=== PATIENT | female | born 1985 | race Caucasian/White ===

== ENCOUNTER 2021-07-09 20:07 | Emergency (ER) | payer MEDICAID, SELFPAY ==
[2021-07-09 20:10] VITALS: BP 107/60; PULSE 70; RESP 16; TEMP 37; O2SAT 98
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
--- NOTE | 2021-07-09 20:22 | NUR.NOTE ---
needs rx refills - on list for assist with pcp Nursing Note:
[2021-07-09] MEDS: Amoxicillin 500 MG CAP PO (20:39)
--- NOTE | 2021-07-10 10:47 | NUR.NOTE ---
Nursing Note: Called in to [facility] : diflucan 150mg, PO, repeat in 72hrs if needed, dispense 2; per Dr. Star King. Theresa Marinelli
== END 2021-07-09 20:42 | disposition home or self-care (01) ==
PROVIDERS: Emergency Provider Emergency Medicine; PCP Family Medicine
DX: K04.7 Periapical abscess without sinus (principal)
CPT/HCPCS: 99283

== ENCOUNTER 2021-07-19 10:09 | Emergency (ER) | payer MEDICAID, SELFPAY ==
[2021-07-19 10:15] VITALS: BP 137/78; PULSE 70; TEMP 36.7; O2SAT 99
--- NOTE | 2021-07-19 10:43 | ED.GENADUL_ITS ---
Discharge Plan Disposition Patient Disposition: HOME Condition: Stable Discharge Details Clinical Impression: Dental infection Primary Care Provider: None,None ED Provider: Mony Osorio Home Meds and New Rx's Prescriptions: New clindamycin HCl 150 mg capsule 450 mg PO TID 7 Days Qty: 63 RF: 0 fluconazole [Diflucan] 150 mg tablet 150 mg PO Q3D PRNQty: 2 RF: 0 Continued Advil Dual Action 125-250 mg Tablet 1 tab PO Q8H PRNRF: 0 Discharge Instructions Instructions: Dental Abscess (ED) Additional Instructions: Concern for continued dental infection. I do not see any drainable abscess at this time. Please encourage hydration. Tylenol and ibuprofen as needed for discomfort. Please take the antibiotics as prescribed. Even if symptoms improve, please take the entire course. Diflucan has been prescribed in the event that you develop a yeast infection. Please probiotic while on the antibiotics. You will need definitive care with a dentist, attached is a list of local dentist, please call tomorrow to schedule follow-up appointment. If you develop swelling, fever/chills or other new/worsening symptoms please seek care urgently once again. Referral for local primary care has also been sent. Stand Alone Forms: Work Release Discharge Data Discharge Date/Time-TO BE ENTERED AT DEPARTURE: 07/19/21 11:21 Medical Decision Making Patient is a pleasant 35-year-old female presenting today with chief complaint of dental pain. Patient was seen here on 07/09/2021 for the same. Was treated with amoxicillin for her dental infection. She reports that initially, she had improvement of her symptoms with this. However, did not have full resolution of her symptoms and patient pain greatly increased again after she completed the antibiotic. Denies any fevers or chills. Is having pain at the left upper and right upper dentition where she has known fractured teeth. Patient is newly back to the area, does not have a local dentist. Has not yet found dental home. No radiation of pain. No difficulty swallowing. No shortness of breath or difficulty breathing. On exam, patient appears nontoxic. She is multiple fractured teeth, proceed with a #1 #16 tooth right area of discomfort is. Patient describes a purulent discharge from the #1 tooth. Not appreciate any area of fluctuance or significant swelling in either area of discomfort. Pain elicited with palpation along the buccal side of either tooth. She does not appear systemically ill. No swelling of the tongue. Posterior pharynx is normal. As the amoxicillin did not subsequently clear the infection, will transition to clindamycin. Patient is requesting a prescription for Diflucan as well she often gets yeast infections with this. Patient reports she is currently menstruating. Will give work note at patient's request. Return precautions were discussed. List of local dentists were given to the patient, she is aware that she will need to follow-up with dentist for definitive care. All the questions or concerns were addressed and she is agreement with plan. HPI General Mode of arrival: ambulatory . Date/Time Provider Initiated Documentation: 07/19/21 10:43 . Limitations to Documentation: no limitations . Information obtained by: patient, RN notes reviewed and old records reviewed . History of Present Illness 35 year old F presents to the emergency department with the chief complaint of dental pain, described as moderate, with intensity rated at 7. Quality is described as aching, and is localized to the mouth. Patient reports no radiation. Patient started experiencing this week(s) and it has been constant. Medication improves symptom(s), (improved with amoxicillin initially) No exacerbating factors reported . Patient notes no other symptoms.. Patient did receive the following treatments prior to arrival, none Related Data Home Medications Medication Instructions Recorded Confirmed Advil Dual Action 1 tab PO Q8H PRN 07/19/21 07/19/21 clindamycin HCl 450 mg PO TID 7 Days #63 cap 07/19/21 fluconazole [Diflucan] 150 mg PO Q3D PRN #2 tab 07/19/21 Previous Rx's Medication Instructions Recorded clindamycin HCl 450 mg PO TID 7 Days #63 cap 07/19/21 fluconazole [Diflucan] 150 mg PO Q3D PRN #2 tab 07/19/21 Allergies Allergy/AdvReac Type Severity Reaction Status Date / Time buspirone HCl [From BuSpar] AdvReac Intermediate blackouts Unverified 07/19/21 10:21 hydroxyzine [From Vistaril] AdvReac Intermediate blackouts Unverified 07/19/21 10:21 sulfamethoxazole AdvReac Intermediate uncontrollable Unverified 07/19/21 10:21 [From Bactrim] vomiting trimethoprim [From Bactrim] AdvReac Intermediate uncontrollable Unverified 07/19/21 10:21 vomiting cyclobenzaprine HCl AdvReac Mild loss of Unverified 07/19/21 10:21 [From Flexeril] inhibition gabapentin [From Neurontin] AdvReac Mild muscle Unverified 07/19/21 10:21 spasms paroxetine HCl [From Paxil] AdvReac Mild Itching Unverified 07/19/21 10:21 General Stated Complaint: DentalOral DEJUAN: 4 Review of Systems Constitutional Constitutional: Reports as per HPI, Denies chills, Denies fever(s) and Denies headache(s) ENT Ears, Nose, Mouth, and Throat: Reports as per HPI, Reports dental pain, Denies dysphagia, Denies ear discharge, Denies otalgia, Denies headache(s), Denies hoarseness, Denies lip swelling, Denies nasal congestion, Denies odynophagia and Denies sore throat Respiratory Respiratory: Reports as per HPI and Denies cough Gastrointestinal Gastrointestinal: Denies dysphagia and Denies odynophagia Integumentary/Breasts Skin/Breast: Reports as per HPI, Denies erythema and Denies skin pain Neurologic Neurologic: Reports as per HPI and Denies headache(s) Allergic/Immunologic Allergic/Immunologic: Denies lip swelling PFSH Medical History ADHD Asthma PCOS (polycystic ovarian syndrome) Surgical History S/P appendectomy S/P cholecystectomy Social History Smoking/Tobacco Use Status: Current every day Tobacco Type: cigarettes and e- cigarettes Smoking risk assessment performed?: Yes Alcohol Intake: current Alcohol Intake frequency: holidays/special occasions only Drug use: Daily Substance use type: marijuana Do you feel safe at home: Yes Do you feel safe in your relationship?: Yes Exam Const General: cooperative, healthy appearing, comfortable, no acute distress, well developed and well groomed Nutritional Appearance: average body habitus and well nourished Orientation: alert and awake [facility] Head: normal to inspection, normocephalic and atraumatic Ears: hearing grossly normal bilaterally, external ears normal and TM's normal bilaterally General nose exam: external nose normal and nares normal Face and sinus: normal facial exam, sinuses nontender and face symmetric Mouth: oral mucosae normal, no trismus and restricted motion Teeth and gingiva: poor dentition (fractured tooth #1) Throat: posterior oropharynx normal, tonsils normal and uvula midline Eyes General: appearance normal, both eyes and all related structures Neck Neck: normal visual inspection, full ROM, no lymphadenopathy, supple and no anterior neck swelling Resp Effort & Inspection: normal respiratory effort, able to speak in complete sentences and no respiratory distress Skin General skin exam: no rashes or lesions noted Trauma: no lacerations or abrasions Neuro General: patient alert and patient awake Cognition: normal cognition Speech: speech normal Gait: normal gait Psych Appearance: grossly normal and well kempt Mental Status: mental status grossly normal Speech and Movement: speech and movement normal Course Vital Signs Vital signs: Vital Signs Temperature 36.7 C 07/19/21 10:15 Pulse 70 07/19/21 10:15 Blood Pressure 137/78 07/19/21 10:15 Pulse Oximetry 99 07/19/21 10:15 Temperature 36.7 C 07/19/21 10:15 Temperature Source Temporal Artery Scan 07/19/21 10:15 Pulse 70 07/19/21 10:15 Respiratory Effort Non-Labored 07/19/21 10:18 Blood Pressure 137/78 07/19/21 10:15 Blood Pressure Position Sitting 07/19/21 10:15 Pulse Oximetry 99 07/19/21 10:15 Pain Level 7 07/19/21 10:20
--- NOTE | 2021-07-19 18:59 | NUR.NOTE ---
referral to [facility] for pcp
== END 2021-07-19 11:21 | disposition home or self-care (01) ==
PROVIDERS: Emergency Provider Physician Assistant
DX: K04.7 Periapical abscess without sinus (principal); F17.210 Nicotine dependence, cigarettes, uncomplicated
CPT/HCPCS: 99283

== ENCOUNTER 2022-01-10 17:03 | Emergency (ER) | payer MEDICAID, SELFPAY ==
[2022-01-10 17:08] VITALS: BP 127/79; PULSE 84; RESP 18; TEMP 36.5; O2SAT 97
[2022-01-10 17:16] VITALS: RESP 18
[2022-01-10 18:16] LABS: Abs Immature Grans 0.04 10^3/uL (0.0-0.06); Absolute Basophil Count 0.03 10^3/uL (0.0-0.2); Absolute Lymphocyte Count 2.47 10^3/uL (1.2-3.4); Absolute Monocyte Count 0.53 10^3/uL (0.1-0.8); Absolute Neutrophil Count 6.12 10^3/uL (1.2-6.7); Basophils % 0.3; Eosinophils % 1.1; HGB 14.3 g/dL (11.2-15.7); Immature Grans % 0.4; Lymphocytes % 26.6; MCH 29.8 pg (27.0-33.0); MCHC 32.5 % (32.0-36.0); MCV 91.7 fL (80-95); MPV 9.1 fL (8.0-11.0); Monocytes % 5.7; Neutrophils % 65.9; Platelet Count 281 10^3/uL (130-400); RDW 12.6 % (11.7-14.6); RDW-SD 42.5 fL; WBC 9.29 10^3/uL (4.4-10.8)
[2022-01-10 18:23] LABS: Magnesium 2.2 mg/dL (1.8-2.4)
[2022-01-10 18:36] LABS: ALT 27 U/L (14-59); AST 14 U/L (15-37); Alkaline Phosphatase 76 U/L (46-116); Anion Gap 7.2 mmol/L (3-11); BUN 8 mg/dL (7-18); Bilirubin, Total 0.4 mg/dL (0.2-1.0); CO2 27.8 mmol/L (21.0-32.0); CREATININE 0.9 mg/dL (0.55-1.02); Calcium 8.9 mg/dL (8.5-10.1); Chloride 104 mmol/L (98-107); Glucose 87 mg/dL (74-106); Potassium 3.9 mmol/L (3.5-5.1); Sodium 139 mmol/L (136-145); TSH (W/Ref FT4) 0.58 uIU/mL (0.36-3.74); Total Protein 8.1 g/dL (6.4-8.2)
--- NOTE | 2022-01-10 20:35 | ED.GENADUL_ITS ---
Discharge Plan Disposition Patient Disposition: HOME Condition: Good Discharge Details Clinical Impression: Anxiety, Edema, peripheral Primary Care Provider: None,None ED Provider: Beronica Jennings Home Meds and New Rx's Prescriptions: Continued Advil Dual Action 125-250 mg Tablet 1 tab PO Q8H PRN0RF Midol 500-25 mg Tablet 1 tab PO Q4H PRN0RF Discharge Instructions Instructions: Anxiety (ED) Additional Instructions: Please follow-up with my counselor as instructed Please return should you have new or worsening complaints I am placing you on our care management list for pcp Stand Alone Forms: Work Release Referrals: [facility] [Provider Group] Medical Decision Making Patient initially was pleasant in [facility] and is rechecking some blood work to check electrolytes Laboratory evaluation did not show acute abnormality She also was supplied with a mental health consultation to establish care and care management follow-up to establish PCP Mental health felt comfortable with patient being evaluated in the outpatient setting and did not express any concern regarding suicidal or homicidal ideation upon Patient was made aware regarding plan and became very agitated, she would not make eye contact and and when not engaged I offered patient a prescription for Lasix which she declined She was given 1 dose of Ativan for report of anxiety in the emergency department and I do not feel comfortable giving her any additional Ativan at home Patient was discharged home and called the emergency department approximately half an hour later and asked to speak with me as she did not receive a prescription for Ativan I discussed with the patient that I did not feel comfortable supplying her with Ativan but she was appropriately supplied with PCP outpatient follow-up and given mental health consultation availability in the outpatient setting Patient subsequently screamed you fucking c*n*, I'll blow your brains out. At this time our conversation was discontinued Medical Records Medical records reviewed: Yes I reviewed the patient's medical records. Lab Data Lab results reviewed: Yes I reviewed the patient's lab results. ECG Data Prior ECG tracings: available for review HPI General Date/Time Provider Initiated Documentation: 01/10/22 17:35 . HPI Narrative: This 36-year-old female presents with swelling in her feet and panic attacks. Patient states that she has a history of PTSD and started a new job without training and is feeling very stressed. She states she is having several panic attacks which she describes as racing thoughts daily. She states that she is not on medication that she does not have a doctor. She denies any suicidal or homicidal ideation. Patient also states that she has had some swelling in her legs. She states this is been going on for the past 3 years. She denies any shortness of breath. She denies fever or chills. She denies rashes or lesions. She states that is persistent throughout the day and does not change in the morning or in the evening. Related Data Home Medications Medication Instructions Recorded Confirmed ibuprofen 125 mg-acetaminophen 250 1 tab PO Q8H PRN 07/19/21 01/10/22 mg tablet (Advil Dual Action) acetaminophen-pamabrom 500 mg-25 1 tab PO Q4H PRN 01/10/22 01/10/22 mg tablet (Midol) Allergies Allergy/AdvReac Type Severity Reaction Status Date / Time buspirone HCl [From BuSpar] AdvReac Intermediate blackouts Unverified 01/10/22 17:14 hydroxyzine [From Vistaril] AdvReac Intermediate blackouts Unverified 01/10/22 17:14 sulfamethoxazole AdvReac Intermediate uncontrollable Unverified 01/10/22 17:14 [From Bactrim] vomiting trimethoprim [From Bactrim] AdvReac Intermediate uncontrollable Unverified 01/10/22 17:14 vomiting cyclobenzaprine HCl AdvReac Mild loss of Unverified 01/10/22 17:14 [From Flexeril] inhibition gabapentin [From Neurontin] AdvReac Mild muscle Unverified 01/10/22 17:14 spasms paroxetine HCl [From Paxil] AdvReac Mild Itching Unverified 01/10/22 17:14 General Stated Complaint: GenMedical DEJUAN: 3 Review of Systems All systems reviewed & are unremarkable except as noted in HPI and below PFSH All Active Problems (Updated 01/10/22 @ 20:52 by MCKENNA Bean) Anxiety (Chronic) Edema, peripheral (Acute) ADHD (Chronic) Asthma (Chronic) Dental infection (Acute) PCOS (polycystic ovarian syndrome) (Chronic) Medical History ADHD Asthma PCOS (polycystic ovarian syndrome) Surgical History S/P appendectomy S/P cholecystectomy Social History Smoking/Tobacco Use Status: Current every day Tobacco Type: cigarettes and e- cigarettes Smoking risk assessment performed?: Yes Alcohol Intake: current Alcohol Intake frequency: holidays/special occasions only Drug use: Daily Substance use type: marijuana Do you feel safe at home: Yes Do you feel safe in your relationship?: Yes Exam Const General: cooperative, comfortable and no acute distress Eyes Pupils: PERRL Resp Effort & Inspection: normal respiratory effort Auscultation: clear to auscultation bilaterally Cardio Rate: regular rate Rhythm: regular rhythm GI Inspection: normal to inspection Auscultation: normal bowel sounds Skin General skin exam: no rashes or lesions noted Neuro General: patient alert and patient oriented x3 Extrem Other: 1+edema to bilateral LE distal pulses intact Psych Appearance: well kempt Speech and Movement: speech and movement normal Affect: normal affect Thought Content: normal Other: no SI or HI Course Vital Signs Vital signs: Vital Signs Temperature 36.5 C 01/10/22 17:08 Pulse 84 01/10/22 17:08 Respiratory Rate 18 01/10/22 17:08 Blood Pressure 127/79 01/10/22 17:08 Pulse Oximetry 97 01/10/22 17:08 Temperature 36.5 C 01/10/22 17:08 Temperature Source Oral 01/10/22 17:08 Pulse 84 01/10/22 17:08 Respiratory Rate 18 01/10/22 17:16 Respiratory Effort Non-Labored 01/10/22 17:16 Respiratory Depth Normal 01/10/22 17:16 Respiratory Pattern Normal 01/10/22 17:16 Blood Pressure 127/79 01/10/22 17:08 Blood Pressure Position Supine 01/10/22 17:08 Pulse Oximetry 97 01/10/22 17:08 Oxygen Delivery Method Room Air 01/10/22 17:08 Oxygen Flow Rate 0 01/10/22 17:08 Pain Level 8 01/10/22 17:08 Lab/Test Results Lab/Test Results: Laboratory Tests Range/Units 01/10/22 01/10/22 01/10/22 18:05 18:05 18:05 WBC (4.4-10.8) 10^3/uL 9.29 RBC (3.93-5.22) 10^6/uL 4.80 Hgb (11.2-15.7) g/dL 14.3 Hct (36.0-46.0) % 44.0 MCV (80-95) fL 91.7 MCH (27.0-33.0) pg 29.8 MCHC (32.0-36.0) % 32.5 RDW (11.7-14.6) % 12.6 Plt Count (130-400) 10^3/uL 281 MPV (8.0-11.0) fL 9.1 Immature Gran % 0.4 Neutrophils % 65.9 Lymphocytes % 26.6 Monocytes % 5.7 Eosinophils % 1.1 Basophils % 0.3 Nucleated RBC % (0.0-0.3) % 0.0 Absolute Neutrophils (1.2-6.7) 10^3/uL 6.12 Absolute Lymphocytes (1.2-3.4) 10^3/uL 2.47 Absolute Monocytes (0.1-0.8) 10^3/uL 0.53 Absolute Eosinophils (0.0-0.7) 10^3/uL 0.10 Absolute Basophils (0.0-0.2) 10^3/uL 0.03 Sodium (136-145) mmol/L 139 Potassium (3.5-5.1) mmol/L 3.9 Chloride (98-107) mmol/L 104 Carbon Dioxide (21.0-32.0) mmol/L 27.8 Anion Gap (3-11) mmol/L 7.2 BUN (7-18) mg/dL 8 Creatinine (0.55-1.02) mg/dL 0.9 Estimated GFR/1.73 m2 (mL/min/1.73m2) >= 60.00 Glucose (74-106) mg/dL 87 Calcium (8.5-10.1) mg/dL 8.9 Magnesium (1.8-2.4) mg/dL 2.2 Total Bilirubin (0.2-1.0) mg/dL 0.4 AST (15-37) U/L 14 L ALT (14-59) U/L 27 Alkaline Phosphatase (46-116) U/L 76 Total Protein (6.4-8.2) g/dL 8.1 Albumin (3.4-5.0) g/dL 4.0 TSH (0.36-3.74) uIU/mL 0.58 POC- Test(urine) Negative PAWSS Have you Ever Experienced Previous Episodes of Alcohol Withdrawal?: No Have you ever Experienced Withdrawal Seizures?: No Have you ever Experienced Delirium Tremens(DT)s?: No Have you ever undergone Alcohol Rehabilitation Treatment (i.e, inpt ot outpatient treatment programs)?: No Have you ever Experienced Blackouts?: No Have you ever Combined Alcohol with other Downers within the last 90 days?: No Have you ever Combined Alcohol with any other Substance of Abuse during the last 90 days?: No Positive Blood Alcohol level on Presentation? [PCS.BAL]: No Evidence of Increased Autonomic Activity (i.e. HR>120, tremor, sweating, agitation, nausea)?: No Result: 0
[2022-01-10] MEDS: LORazepam 1 MG TAB PO (20:49)
[2022-01-10 21:06] VITALS: PULSE 72; RESP 16; O2SAT 96
--- NOTE | 2022-01-10 23:15 | PDOC.MHCN_ITS ---
Date of service: 01/10/22 Time of Service: 20:20 Mental Health Crisis Note Presenting Issue How did you arrive at the ED and why did you come: Client arrived at [facility] ED via self stating that she was having a panic attack. Precipitating Factors Client denies current SI/HI, intent or plan. Disposition BEHAVIOR: Client is laying down in hospital bed dressed in hospital gown when this commercial real estate underwriter arrives via zoom. EYE CONTACT: Client gives fair eye contact. MOOD: Depressed/withdrawn AFFECT: flat APPETITE: fair SLEEP(trouble falling/staying asleep: fair Plan Client completed intake paperwork with this commercial real estate underwriter. Referral will be made for case management and therapy. Client also given [facility] 24/7 phone number as well as lifeline phone number to utilize for support. Signature Clinician's Name/Title: Crystal Lamar [facility] Emergency Clinician
--- NOTE | 2022-01-10 23:15 | PDOC.MHCN ---
Date of service: 01/10/22 Time of Service: 20:20 Mental Health Crisis Note Presenting Issue How did you arrive at the ED and why did you come: Client arrived at [facility] ED via self stating that she was having a panic attack. Precipitating Factors Client denies current SI/HI, intent or plan. Disposition BEHAVIOR: Client is laying down in hospital bed dressed in hospital gown when this residential mortgage underwriter arrives via zoom. EYE CONTACT: Client gives fair eye contact. MOOD: Depressed/withdrawn AFFECT: flat APPETITE: fair SLEEP(trouble falling/staying asleep: fair Plan Client completed intake paperwork with this residential mortgage underwriter. Referral will be made for case management and therapy. Client also given [facility] 24/7 phone number as well as lifeline phone number to utilize for support. Signature Clinician's Name/Title: Crystal Lamar [facility] Emergency Clinician
--- NOTE | 2022-01-11 10:31 | NUR.NOTE ---
First phone call patient called asking about the medications lasix and ativan on discharge. Stated she did not want the lasix but was expecting the ativan. Stated she was going to kill herself without it. Second call Mony ANDRES spoke with patient. Third phone call she called yelling, stating that she wanted to do a complaint, that she had a cord around her neck and then started making choking sounds. She then hung up. Theresa Marinelli Nursing Note:
== END 2022-01-10 21:18 | disposition home or self-care (01) ==
PROVIDERS: Emergency Provider Physician Assistant
DX: F41.9 Anxiety disorder, unspecified (principal); R60.0 Localized edema
CPT/HCPCS: 36415; 80053; 81025; 99283; 83735; 84443; 85025

== ENCOUNTER 2022-05-21 12:46 | Emergency (ER) | payer MEDICAID, SELFPAY ==
[2022-05-21 12:49] VITALS: BP 96/68; PULSE 88; RESP 16; TEMP 36.7; O2SAT 98
--- NOTE | 2022-05-21 13:45 | DI.RAD_ITS ---
Exam(s) XR ANKLE RT COMPLETE EXAM: XR ANKLE RT COMPLETE CLINICAL HISTORY: ankle pain, rolled ankle. TECHNIQUE: 2D digital imaging was performed. COMPARISON: No exams were available for comparison FINDINGS: 3 views Mild soft tissue swelling. No fractures nor widening of the mortise. Talar dome unremarkable. On t he lateral view there is slight widening of the subtalar joint, possibly significant. There is no os seous tarsal coalition No osseous lesions. IMPRESSION: DATA REPOSITORY: RADIATION DOSE DELIVERED:
--- NOTE | 2022-05-21 14:35 | ED.GENADUL_ITS ---
Discharge Plan Disposition Patient Disposition: HOME Condition: Stable Discharge Details Chief Complaint: Orthopedic Clinical Impression: Ankle sprain Primary Care Provider: Toshia Ledbetter ED Provider: Danish Austin Home Meds and New Rx's Prescriptions: No Action Advil Dual Action 125-250 mg Tablet 1 tab PO Q8H PRN Midol 500-25 mg Tablet 1 tab PO Q4H PRN clonidine HCl 0.1 mg tablet 0.1 tab PO DAILY Label Comments: TAKE 1 TABLET BY MOUTH NIGHTLY Discharge Instructions Instructions: Ankle Sprain (ED) Additional Instructions: Please ice and elevate ankle as needed. Please continue to use ibuprofen and/or acetaminophen for pain. Medical Decision Making 36-year-old female presents with right ankle pain over the last week after rolling at all times. Did not fall to the ground is able to ambulate is able to move and stand at work. Has mild lateral malleoli or tenderness in the right lower extremity. DP pulse intact sensation intact soft compartments no external signs of trauma. Neurovascular exam of limb intact. Likely ankle sprain versus muscle strain versus unlikely ankle fracture or dislocation, no evidence in history or physical to suggest DVT or infectious process. Patient was offered Toradol however she says that this medication does not help her she has been taking Tylenol at home. Patient is amenable to obtain x-ray. Likely will be given orthopedic referral for follow-up as needed. 15: 17 patient resting comfortably no acute distress. No evidence of fracture or dislocation. Patient offered Ronald wrap for suspected ankle sprain however she does not want an Ronald wrap. Will provide orthopedic follow-up to use as needed. Given home care instructions and return precautions HPI General Date/Time Provider Initiated Documentation: 05/21/22 13:13 . HPI Narrative: 36-year-old female presents with 1 week of right ankle pain, endorses twisting it multiple times. Has not fallen to the ground. Is able to walk and stand at work. Related Data Home Medications Medication Instructions Recorded Confirmed ibuprofen 125 mg-acetaminophen 250 1 tab PO Q8H PRN 07/19/21 05/21/22 mg tablet (Advil Dual Action) acetaminophen-pamabrom 500 mg-25 1 tab PO Q4H PRN 01/10/22 05/21/22 mg tablet (Midol) clonidine HCl 0.1 mg tablet 0.1 tab PO DAILY 05/21/22 05/21/22 Allergies Allergy/AdvReac Type Severity Reaction Status Date / Time haloperidol [From Haldol] Allergy Other (See Unverified 05/21/22 12:55 Comment) buspirone HCl [From BuSpar] AdvReac Intermediate blackouts Unverified 05/21/22 12:55 hydroxyzine [From Vistaril] AdvReac Intermediate blackouts Unverified 05/21/22 12:55 sulfamethoxazole AdvReac Intermediate uncontrollable Unverified 05/21/22 12:55 [From Bactrim] vomiting trimethoprim [From Bactrim] AdvReac Intermediate uncontrollable Unverified 05/21/22 12:55 vomiting cyclobenzaprine HCl AdvReac Mild loss of Unverified 05/21/22 12:55 [From Flexeril] inhibition gabapentin [From Neurontin] AdvReac Mild muscle Unverified 05/21/22 12:55 spasms paroxetine HCl [From Paxil] AdvReac Mild Itching Unverified 05/21/22 12:55 General Stated Complaint: Orthopedic DEJUAN: 4 Review of Systems Narrative: Review of Systems Constitutional: negative Eyes: negative ENT: negative Cardiovascular: negative Respiratory: negative Gastrointestinal: negative : negative Musculoskeletal: Ankle pain Skin: negative Neurologic: negative Psych: negative PFSH All Active Problems (Updated 05/21/22 @ 15:20 by Danish Austin MD) Ankle sprain (Acute) ADHD (Chronic) Asthma (Chronic) Dental infection (Acute) PCOS (polycystic ovarian syndrome) (Chronic) Medical History ADHD Asthma PCOS (polycystic ovarian syndrome) Surgical History S/P appendectomy S/P cholecystectomy Social History Smoking/Tobacco Use Status: Current every day Tobacco Type: cigarettes and e-cigarettes Smoking risk assessment performed?: Yes Alcohol Intake: current Alcohol Intake frequency: holidays/special occasions only Drug use: Daily Substance use type: marijuana Do you feel safe at home: Yes Do you feel safe in your relationship?: Yes Exam Narrative Exam Narrative: Physical Examination General: alert, awake, cooperative, resting comfortably, no acute distress HEENT: normocephalic, atraumatic; PERRL, EOM intact, conjunctiva normal; no nasal discharge; moist mucous membranes, oral and pharyngeal mucosa normal, tolerating secretions Neck: supple, trachea midline; full ROM Chest: normal to inspection Respiratory: normal respiratory effort, speaking in full sentences, clear to auscultation, no wheezing, rales or rhonchi Cardiac: regular rate, regular rhythm, S1S2 intact, no murmurs rubs or gallops GI: abdomen soft, non-tender, non-distended; no palpable mass or hepa tosplenomegaly Skin: no lesions, rashes or trauma appreciated Neuro: AAOx3, normal speech, moving all extremities Extremities: Ambulatory full range of motion of bilateral lower extremities, no appreciable external signs of trauma, DP pulse intact sensation foot intact, soft compartments, mild lateral malleoli or tenderness right ankle, no medial malleoli or calcaneal tenderness Course Vital Signs Vital signs: Vital Signs Temperature 36.7 C 05/21/22 12:49 Pulse 88 05/21/22 12:49 Respiratory Rate 16 05/21/22 12:49 Blood Pressure 96/68 L 05/21/22 12:49 Pulse Oximetry 98 05/21/22 12:49 Temperature 36.7 C 05/21/22 12:49 Temperature Source Skin 05/21/22 12:49 Pulse 88 05/21/22 12:49 Respiratory Rate 16 05/21/22 12:49 Respiratory Effort 05/21/22 12:54 Blood Pressure 96/68 L 05/21/22 12:49 Blood Pressure Position Sitting 05/21/22 12:49 Pulse Oximetry 98 05/21/22 12:49 Oxygen Delivery Method Room Air 05/21/22 12:49 Oxygen Flow Rate 0 05/21/22 12:49 Pain Level 10 05/21/22 12:56
== END 2022-05-21 15:28 | disposition home or self-care (01) ==
PROVIDERS: Emergency Provider Emergency Medicine; PCP Family Medicine
DX: S93.491A Sprain of other ligament of right ankle, initial encounter (principal); X50.1XXA Overexertion from prolonged static or awkward postures, initial encounter
CPT/HCPCS: 99283; 73610; 99282

== ENCOUNTER 2023-01-15 09:56 | Emergency (ER) | payer MEDICAID, SELFPAY ==
[2023-01-15 09:59] VITALS: BP 145/88; PULSE 81; RESP 18; TEMP 36.9; O2SAT 100
--- NOTE | 2023-01-15 10:29 | ED.GENADUL_ITS ---
Discharge Plan Disposition Patient Disposition: Home Discharge Details Clinical Impression: Cervical radiculopathy Primary Care Provider: Toshia Ledbetter ED Provider: Beronica Jennings Home Meds and New Rx's Prescriptions: New prednisone 20 mg tablet 40 mg PO BID Qty: 10 0RF metaxalone 800 mg tablet 800 mg PO TID PRNQty: 10 0RF Continued Advil Dual Action 125-250 mg Tablet 1 tab PO Q8H PRN Midol 500-25 mg Tablet 1 tab PO Q4H PRN clonidine HCl 0.1 mg tablet 0.1 tab PO DAILY Patient Comments: TAKE 1 TABLET BY MOUTH NIGHTLY albuterol sulfate 90 mcg/actuation HFA aerosol inhaler INHALATION Patient Comments: INHALE 2 PUFFS BY MOUTH EVERY 4 HOURS NEEDED Discharge Instructions Additional Instructions: Please establish care with a primary care physician, if you continue to have symptoms you may need an MRI, this is of course at the discretion of your doctor I am giving you a referral to orthopedics regarding your elbow pain and shoulder pain Please take Tylenol 650 mg every 4-6 hours Start the prednisone today Continue to range her shoulder so it does not become stiff Should you develop any new or worsening symptoms please be reevaluated I have notified the auto care center manager that you need a primary care physician, we will work on establishing you care Referrals: Chele Hurtado MD [ [facility] STAFF PHYSICIAN] - 1 day Discharge Data Discharge Date/Time-TO BE ENTERED AT DEPARTURE: 01/15/23 10:53 Medical Decision Making 37-year-old female presenting with right upper extremity numbness and pain History of similar symptoms in the past, denies any known injury Aside from some mild diminishment sensation to right fourth and fifth digits on hand affected arm, no additional neurological findings Encouraged to follow-up with primary care physician for outpatient MRI at the discretion of her provider Steroid taper supplied Skelaxin muscle relaxation supplied Encouraged Tylenol as needed pain Discharge home stable vitals, return precautions reviewed and patient expressed understanding my Medical Records Medical records reviewed: Yes I reviewed the patient's medical records. Lab Data Lab results reviewed: Yes I reviewed the patient's lab results. HPI General Date/Time Provider Initiated Documentation: 01/15/23 10:15 . HPI Narrative: This 37-year-old female presents with right arm pain which she describes as sharp shooting pain from her neck into her fourth and fifth digits for the past several weeks. Is acute on chronic complaint. Denies any weakness. Denies any headache, denies any fever or chills. Related Data Home Medications Medication Instructions Recorded Confirmed ibuprofen 125 mg-acetaminophen 250 1 tab PO Q8H PRN 07/19/21 01/15/23 mg tablet (Advil Dual Action) acetaminophen-pamabrom 500 mg-25 1 tab PO Q4H PRN 01/10/22 01/15/23 mg tablet (Midol) clonidine HCl 0.1 mg tablet 0.1 tab PO DAILY 05/21/22 05/21/22 albuterol sulfate 90 mcg/actuation inhalation 01/15/23 01/15/23 aerosol inhaler metaxalone 800 mg tablet 800 mg PO TID PRN #10 tabs 01/15/23 prednisone 20 mg tablet 40 mg PO BID #10 tabs 01/15/23 Previous Rx's Medication Instructions Recorded metaxalone 800 mg tablet 800 mg PO TID PRN #10 tabs 01/15/23 prednisone 20 mg tablet 40 mg PO BID #10 tabs 01/15/23 Allergies Allergy/AdvReac Type Severity Reaction Status Date / Time haloperidol [From Haldol] Allergy Other (See Unverified 05/21/22 12:55 Comment) buspirone HCl [From BuSpar] AdvReac Intermediate blackouts Unverified 05/21/22 12:55 hydroxyzine [From Vistaril] AdvReac Intermediate blackouts Unverified 05/21/22 12:55 sulfamethoxazole AdvReac Intermediate uncontrollable Unverified 05/21/22 12:55 [From Bactrim] vomiting trimethoprim [From Bactrim] AdvReac Intermediate uncontrollable Unverified 05/21/22 12:55 vomiting cyclobenzaprine HCl AdvReac Mild loss of Unverified 05/21/22 12:55 [From Flexeril] inhibition gabapentin [From Neurontin] AdvReac Mild muscle Unverified 05/21/22 12:55 spasms paroxetine HCl [From Paxil] AdvReac Mild Itching Unverified 05/21/22 12:55 General Stated Complaint: Orthopedic DEJUAN: 4 PFSH All Active Problems (Updated 01/15/23 @ 10:34 by MCKENNA Bean) Cervical radiculopathy (Acute) ADHD (Chronic) Asthma (Chronic) Dental infection (Acute) PCOS (polycystic ovarian syndrome) (Chronic) Medical History ADHD Asthma PCOS (polycystic ovarian syndrome) Surgical History S/P appendectomy S/P cholecystectomy Social History Smoking/Tobacco Use Status: Current every day Tobacco Type: cigarettes and e- cigarettes Smoking risk assessment performed?: Yes Alcohol Intake: current Alcohol Intake frequency: holidays/special occasions only Drug use: Daily Substance use type: marijuana Do you feel safe at home: Yes Do you feel safe in your relationship?: Yes Exam Const General: cooperative and comfortable Orientation: alert and oriented x3 HENMT Head: normal to inspection Neck Other: Paraspinal muscle tenderness on right, no midline tenderness, no carotid bruit Resp Effort & Inspection: normal respiratory effort Auscultation: clear to auscultation bilaterally Cardio Other: Distal pulses intact Skin General skin exam: no rashes or lesions noted Neuro General: patient alert and patient oriented x3 Other: Sensation intact distally although mildly diminished the fourth and fifth digits and lateral or ulnar aspect of right arm, hand grasp intact, DTRs intact bilateral lower extremities and upper extremities Strength intact to bilateral upper and lower extremity Course Vital Signs Vital signs: Vital Signs Temperature 36.9 C 01/15/23 09:59 Pulse 81 01/15/23 09:59 Respiratory Rate 18 01/15/23 09:59 Blood Pressure 145/88 H 01/15/23 09:59 Pulse Oximetry 100 01/15/23 09:59 Temperature 36.9 C 01/15/23 09:59 Temperature Source Temporal Artery Scan 01/15/23 09:59 Pulse 81 01/15/23 09:59 Respiratory Rate 18 01/15/23 09:59 Respiratory Effort Normal, Non-Labored 01/15/23 10:03 Blood Pressure 145/88 H 01/15/23 09:59 Blood Pressure Position Sitting 01/15/23 09:59 Pulse Oximetry 100 01/15/23 09:59 Oxygen Delivery Method Room Air 01/15/23 09:59 Oxygen Flow Rate 0 01/15/23 09:59 Pain Level 8 01/15/23 09:59
--- NOTE | 2023-01-15 11:08 | NUR.NOTE ---
Referral made per Beronica Jennings to care management to help patient establish care with a PCP. Patient does not have the PCP that is listed on the demographics.Nursing Note:
--- NOTE | 2023-01-17 12:09 | CMACTNOTE_ITS ---
- If Service Date Differs Date of service: 01/17/23 Time of Service: 12:09 Care Management Activity Note Elvia is seen in the ED for cervical radiculopathy. CM telephones patient to inquire if she would prefer to establish care in [place] or [place]. She requests phone numbers for PCPs in the [facility] area and is provided contact information for [facility] and for [facility]. She will outreach directly to a practice of her choice to establish care. She has [place] Medicaid for insurance.
--- NOTE | 2023-01-17 12:09 | PDOC.ERCMACT ---
- If Service Date Differs Date of service: 01/17/23 Time of Service: 12:09 Care Management Activity Note Elvia is seen in the ED for cervical radiculopathy. CM telephones patient to inquire if she would prefer to establish care in [place] or [place]. She requests phone numbers for PCPs in the [facility] area and is provided contact information for [facility] and for [facility]. She will outreach directly to a practice of her choice to establish care. She has [place] Medicaid for insurance.
== END 2023-01-15 10:53 | disposition home or self-care (01) ==
LOC: ER 10:53
PROVIDERS: Emergency Provider Physician Assistant; PCP Family Medicine
DX: M54.12 Radiculopathy, cervical region (principal)
CPT/HCPCS: 99283; 99284

== ENCOUNTER 2023-01-18 15:37 | Emergency (ER) | payer MEDICAID, SELFPAY ==
[2023-01-18 15:48] VITALS: BP 138/47; PULSE 81; RESP 16; TEMP 37.1; O2SAT 99
--- NOTE | 2023-01-18 16:05 | ED.GENADUL_ITS ---
Discharge Plan Disposition Patient Disposition: Home Condition: Improving Discharge Details Clinical Impression: Achilles tendinitis of left lower extremity, Achilles bursitis of left lower extremity Primary Care Provider: Unknown,Unknown ED Provider: Shmuel Hernandez Meds and New Rx's Prescriptions: New naproxen [Naprosyn] 500 mg tablet 500 mg PO BID Qty: 20 0RF Continued Advil Dual Action 125-250 mg Tablet 1 tab PO Q8H PRN Midol 500-25 mg Tablet 1 tab PO Q4H PRN multivitamin Tablet 1 tab PO DAILY acetaminophen 500 mg Tablet 1,000 mg PO PRN PRN albuterol sulfate 90 mcg/actuation HFA aerosol inhaler 2 puff INHALATION PRN PRN Patient Comments: INHALE 2 PUFFS BY MOUTH EVERY 4 HOURS NEEDED Discharge Instructions Instructions: Tendinitis (ED) Stand Alone Forms: Work Release Discharge Data Discharge Physician: Shmuel Hernandez Medical Decision Making Summary: Patient with left lower extremity Achilles and calf tenderness was co ncerned she may have a DVT.? [id number] ultrasound of the left lower extremity deep venous system was done by me as a limited study with good visibility of the deep venous system starting from the saphenous vein in the common femoral vein with good compressibility down to the mid superficial femo ral vein and the popliteal veins with good compressibility good Doppler flow and augmentation.? Ultrasound of the calf and the Achilles tendon was done which shows mild lymphedema of the subcutaneous tissue of the tissues around the ankle but no abnormality.? Shared disposition patient most likely with tendinitis of the Achilles tendon and calf which has been fair when she stands on her feet a lot.? Patient was given Naprosyn prescription and have given a work note so she sits for the next 3 days with limited activity at work.? Patient understands instructions and agrees and will be discharged home Differential Diagnosis Differential Diagnosis: Differential Diagnosis: 1. Deep vein thrombosis 2. Achillis tendinitis 3 Medical Records Medical records reviewed: Yes I reviewed the patient's medical records. HPI General Date/Time Provider Initiated Documentation: 01/18/23 15:48 . HPI Narrative: Patient presents to the emergency department complaining of left ankle pain and swelling but no obvious injury. 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 Patient stopped the prednisone and states that she might be leaning on her left side and started having left ankle pain which she rates about a 4/10 throbbing pain of the left ankle that radiates to the left calf reports the pain is sharp and sometimes throbbing. Patient states that he is here because she is worried of a DVT for had a friend who of a DVT and PE years ago. Denies any shortness of breath denies any chest pain Related Data Home Medications Medication Instructions Recorded Confirmed ibuprofen 125 mg-acetaminophen 250 1 tab PO Q8H PRN 07/19/21 01/18/23 mg tablet (Advil Dual Action) acetaminophen-pamabrom 500 mg-25 1 tab PO Q4H PRN 01/10/22 01/18/23 mg tablet (Midol) albuterol sulfate 90 mcg/actuation 2 puff inhalation PRN PRN 01/15/23 01/18/23 aerosol inhaler acetaminophen 500 mg tablet 1,000 mg PO PRN PRN 01/18/23 01/18/23 multivitamin 1 tab PO DAILY 01/18/23 01/18/23 naproxen 500 mg tablet (Naprosyn) 500 mg PO BID #20 tabs 01/18/23 Previous Rx's Medication Instructions Recorded naproxen 500 mg tablet (Naprosyn) 500 mg PO BID #20 tabs 01/18/23 Allergies Allergy/AdvReac Type Severity Reaction Status Date / Time haloperidol [From Haldol] Allergy Other (See Unverified 05/21/22 12:55 Comment) buspirone HCl [From BuSpar] AdvReac Intermediate blackouts Unverified 05/21/22 12:55 hydroxyzine [From Vistaril] AdvReac Intermediate blackouts Unverified 05/21/22 12:55 sulfamethoxazole AdvReac Intermediate uncontrollable Unverified 05/21/22 12:55 [From Bactrim] vomiting trimethoprim [From Bactrim] AdvReac Intermediate uncontrollable Unverified 05/21/22 12:55 vomiting cyclobenzaprine HCl AdvReac Mild loss of Unverified 05/21/22 12:55 [From Flexeril] inhibition gabapentin [From Neurontin] AdvReac Mild muscle Unverified 05/21/22 12:55 spasms methocarbamol [From Robaxin] AdvReac Mild Other (See Unverified 01/18/23 17:08 Comment) paroxetine HCl [From Paxil] AdvReac Mild Itching Unverified 05/21/22 12:55 benztropine [From Cogentin] AdvReac Other (See Unverified 01/18/23 15:55 Comment) General Stated Complaint: Orthopedic DEJUAN: 3 Review of Systems All systems reviewed & are unremarkable except as noted in HPI and below Constitutional Constitutional: Reports as per HPI and Reports system reviewed and no additional complaints, except as documented Eyes Eyes: Reports as per HPI and Reports system reviewed and no additional complaints, except as documented ENT Ears, Nose, Mouth, and Throat: Reports system reviewed and no additional complaints, except as documented Cardiovascular Cardiovascular: Reports system reviewed and no additional complaints, except as documented Respiratory Respiratory: Reports as per HPI and Reports system reviewed and no additional complaints, except as documented Musculoskeletal Musculoskeletal: Reports system reviewed and no additional complaints, except as documented, Reports as per HPI, Reports joint swelling and Reports muscle cramps Neurologic Neurologic: Reports system reviewed and no additional complaints, except as documented Psychiatric Psychiatric: Reports system reviewed and no additional complaints, except as documented Endocrine Endocrine: Reports system reviewed and no additional complaints, except as documented Hematologic/Lymphatic Hematologic/Lymphatic: Reports system reviewed and no additional complaints, except as documented and Reports as per HPI Allergic/Immunologic Allergic/Immunologic: Reports system reviewed and no additional complaints, except as documented and Reports as per HPI PFSH All Active Problems (Updated 01/18/23 @ 17:45 by Shmuel Hernandez MD) Cervical radiculopathy (Acute) Achilles tendinitis of left lower extremity (Acute) Achilles bursitis of left lower extremity (Acute) ADHD (Chronic) Asthma (Chronic) Dental infection (Acute) PCOS (polycystic ovarian syndrome) (Chronic) Surgical History S/P appendectomy S/P cholecystectomy Social History Smoking/Tobacco Use Status: Current every day Tobacco Type: cigarettes and e- cigarettes Smoking risk assessment performed?: Yes Alcohol Intake: current Alcohol Intake frequency: holidays/special occasions only Drug use: Daily Substance use type: marijuana Do you feel safe at home: Yes Do you feel safe in your relationship?: Yes Exam Const General: cooperative, healthy appearing, comfortable, no acute distress and well developed [facility] Head: normal to inspection, normocephalic and atraumatic Eyes General: appearance normal, both eyes and all related structures Periorbital: periorbital findings normal Eyelids: eyelids normal Conjunctivae: conjunctivae normal Pupils: PERRL EOM: EOM intact bilaterally Neck Neck: normal visual inspection, full ROM, no lymphadenopathy and nontender Chest Chest: normal inspection of the chest Resp Effort & Inspection: normal respiratory effort and abnormal respiratory pattern Auscultation: clear to auscultation bilaterally Cardio Palpation: normal PMI Rate: regular rate Rhythm: regular rhythm GI Inspection: normal to inspection Skin General skin exam: no rashes or lesions noted Neuro General: patient alert, patient awake and patient oriented x3 Cognition: normal cognition Speech: speech normal Gait: normal gait Motor: muscle tone normal throughout Extrem General: normal to inspection Left lower extremity: normal to inspection, full ROM, normal capillary refill and edema Details: 1+ (Left ankle edema mild tenderness to the Achilles tendon and the posterior calf) Ankle/foot/toe images: 1. Tenderness to palpation left Achilles and left calf Course Patient with tenderness to the Achilles tendon and calf with mild swelling of the left ankle who has been favoring that left ankle for she had right neck pain and is on her feet all the time at work Vital Signs Vital signs: Vital Signs Temperature 37.1 C 01/18/23 15:48 Pulse 81 01/18/23 15:48 Respiratory Rate 16 01/18/23 15:48 Blood Pressure 138/47 L 01/18/23 15:48 Pulse Oximetry 99 01/18/23 15:48 Temperature 37.1 C 01/18/23 15:48 Temperature Source Temporal Artery Scan 01/18/23 15:48 Pulse 81 01/18/23 15:48 Respiratory Rate 16 01/18/23 15:48 Respiratory Effort Normal 01/18/23 15:56 Blood Pressure 138/47 L 01/18/23 15:48 Blood Pressure Position Sitting 01/18/23 15:48 Pulse Oximetry 99 01/18/23 15:48 Oxygen Delivery Method Room Air 01/18/23 15:48 Oxygen Flow Rate 0 01/18/23 15:48 Pain Level 9 01/18/23 15:48 POCUS Exam (ED) Limited Vascular Exam DATE OF EXAM: 01/18/23 TIME OF EXAM: 16:27 PROVIDER THAT PERFORMED THE STUDY: Shmuel Hernandez IS THIS A REPEAT EXAM DURING THIS ENCOUNTER: No Vascular Exam: Left lower extremity REASON FOR EXAM: Concern for DVT left lower extremity, Left calf pain and Left lower extremity pain VISUALIZED STRUCTURES: Left common femoral vein, Left popliteal vein, Left superficial femoral vein and Left greater saphenous vein PERTINENT FINDINGS/IMPRESSION: Compressible veins left leg and No apparent abnormalities Exam Complete DIFFERENTIAL DIAGNOSES: Left lower extremity exam normal no DVT from diagnosis tendinitis of the Achilles tendon and calf strain INCIDENTAL FINDINGS: Mild ankle lymphedema
[2023-01-18 18:02] VITALS: BP 138/47; PULSE 81; RESP 16; TEMP 37.1; O2SAT 99
== END 2023-01-18 18:06 | disposition home or self-care (01) ==
PROVIDERS: Emergency Provider Emergency Medicine Emergency Medical Services
DX: M76.62 Achilles tendinitis, left leg (principal)
CPT/HCPCS: 99284

== ENCOUNTER 2023-02-07 00:44 | Outpatient (CLI) | payer MEDICAID, SELFPAY ==
--- NOTE | 2023-02-07 | DI.MAMMO_ITS ---
Exam(s) US BREAST RT COMPLETE MG MAMMO DIAGNOSTIC BI EXAM: MG MAMMO DIAGNOSTIC BI CLINICAL HISTORY: INVERSION NIPPLE, N64.59, NIPPLE DISCHARGE, N64.52. COMPARISON: US US BREAST RT COMPLETE from 02/07/2023. Baseline mammogram. TECHNIQUE: Craniocaudal and mediolateral oblique Full Field Digital Mammography views of both breast s with Computer Aided Diagnosis followed by Tomosynthesis and right breast ultrasound. FINDINGS: Mammography/Tomosynthesis: Masses/Architectural Distortion: None seen. Microcalcifications: No suspicious pleomorphic-type are seen. Skin Thickening/Nipple Retraction: None. Right breast US: Echotexture: Normal appearance of the glandular tissue. Shadowing: No suspicious foci. Cyst: 6 x 3 x 1 millimeter cyst the 3 o'clock position 2 cm from the nipple. Solid lesions: None seen. Ductal dilation: None. IMPRESSION: 1. No evidence of malignancy is noted. Incidental small cyst. 2. Unless there is more urgent need, follow-up screening mammography is recommended, as per [employer] guidelines. BI-RADS Category 2 - Benign Findings Breast Density - Category B - Scattered areas of fibroglandular density A negative radiographic report should not delay biopsy if a dominant or clinically suspicious mass is present. Up to ten percent of cancers are not identified on mammography. A negative report may reinforce clinical impression. Adenosis and dense breasts may obscure an underlying neoplasm. False positive reports average 6 to 10%. Patient will receive a letter notifying them of these results.
== END 2023-02-07 01:04 ==
PROVIDERS: Visit Provider Advanced Practice Midwife
DX: Z12.31 Encounter for screening mammogram for malignant neoplasm of breast (principal); R92.8 Other abnormal and inconclusive findings on diagnostic imaging of breast
CPT/HCPCS: 76642; 77062; 77066; G0279

== ENCOUNTER 2023-03-02 13:43 | Emergency (ER) | payer MEDICAID, SELFPAY ==
[2023-03-02 13:50] VITALS: BP 124/66; PULSE 65; RESP 18; TEMP 36.8; O2SAT 99
--- NOTE | 2023-03-02 14:18 | ED.GENADUL_ITS ---
Discharge Plan Disposition Patient Disposition: Home Discharge Details Clinical Impression: Abscess Primary Care Provider: None,None ED Provider: Beronica Jennings Home Meds and New Rx's Prescriptions: New cephalexin 500 mg capsule 500 mg PO Q6H 7 Days Qty: 28 0RF fluconazole [Diflucan] 150 mg tablet 150 mg PO ONCE Qty: 1 0RF Rx Instructions: as a single dose Continued Advil Dual Action 125-250 mg Tablet 1 tab PO Q8H PRN Midol 500-25 mg Tablet 1 tab PO Q4H PRN multivitamin Tablet 1 tab PO DAILY acetaminophen 500 mg Tablet 1,000 mg PO PRN PRN naproxen [Naprosyn] 500 mg tablet 500 mg PO BID Qty: 20 0RF albuterol sulfate 90 mcg/actuation HFA aerosol inhaler 2 puff INHALATION PRN PRN Patient Comments: INHALE 2 PUFFS BY MOUTH EVERY 4 HOURS NEEDED Discharge Instructions Instructions: Abscess (ED) Additional Instructions: Take antibiotics as prescribed Warm compresses Take ibuprofen and Tylenol as needed for pain Follow-up for your MRI return earlier should you have new or worsening complaints Stand Alone Forms: Work Release Discharge Data Discharge Date/Time-TO BE ENTERED AT DEPARTURE: 03/02/23 14:29 Medical Decision Making 37-year-old female who presents with cervical radiculopathy, similar symptoms to prior assessment of this patient Placed on Keflex, low suspicion for any sort of paraspinal abscess or discitis given clinical exam and persistence of symptoms We will order outpatient MRI cervical spine as patient states this is ordered by her doctor but has not been scheduled for several months per patient We will continue with [id number] supportive care We will follow-up with primary care physician Nonfocal neurological exam Discharged home in stable condition with stable vital Medical Records Medical records reviewed: Yes I reviewed the patient's medical records. Lab Data Lab results reviewed: Yes I reviewed the patient's lab results. HPI General Date/Time Provider Initiated Documentation: 03/02/23 14:07 . HPI Narrative: This 37-year-old female presents with report of persistent neck pain for the past several months, states it was worse this morning which is why she presents. She also noticed a small lump to the right of her neck that is slightly more tender. Denies any fever or chills. Denies any weakness or sensory acute sensation change to her extremities. Denies any lower extremity involvement. Denies any headache or fever. Denies any chance of . Related Data Home Medications Medication Instructions Recorded Confirmed ibuprofen 125 mg-acetaminophen 250 1 tab PO Q8H PRN 07/19/21 03/02/23 mg tablet (Advil Dual Action) acetaminophen-pamabrom 500 mg-25 1 tab PO Q4H PRN 01/10/22 03/02/23 mg tablet (Midol) albuterol sulfate 90 mcg/actuation 2 puff inhalation PRN PRN 01/15/23 03/02/23 aerosol inhaler acetaminophen 500 mg tablet 1,000 mg PO PRN PRN 01/18/23 03/02/23 multivitamin 1 tab PO DAILY 01/18/23 03/02/23 naproxen 500 mg tablet (Naprosyn) 500 mg PO BID #20 tabs 01/18/23 03/02/23 cephalexin 500 mg capsule 500 mg PO Q6H 7 days #28 caps 03/02/23 fluconazole 150 mg tablet 150 mg PO ONCE #1 tab 03/02/23 (Diflucan) Previous Rx's Medication Instructions Recorded naproxen 500 mg tablet (Naprosyn) 500 mg PO BID #20 tabs 01/18/23 cephalexin 500 mg capsule 500 mg PO Q6H 7 days #28 caps 03/02/23 fluconazole 150 mg tablet 150 mg PO ONCE #1 tab 03/02/23 (Diflucan) Allergies Allergy/AdvReac Type Severity Reaction Status Date / Time haloperidol [From Haldol] Allergy Other (See Unverified 05/21/22 12:55 Comment) buspirone HCl [From BuSpar] AdvReac Intermediate blackouts Unverified 05/21/22 12:55 hydroxyzine [From Vistaril] AdvReac Intermediate blackouts Unverified 05/21/22 12:55 sulfamethoxazole AdvReac Intermediate uncontrollable Unverified 05/21/22 12:55 [From Bactrim] vomiting trimethoprim [From Bactrim] AdvReac Intermediate uncontrollable Unverified 05/21/22 12:55 vomiting cyclobenzaprine HCl AdvReac Mild loss of Unverified 05/21/22 12:55 [From Flexeril] inhibition gabapentin [From Neurontin] AdvReac Mild muscle Unverified 05/21/22 12:55 spasms methocarbamol [From Robaxin] AdvReac Mild Other (See Unverified 01/18/23 17:08 Comment) paroxetine HCl [From Paxil] AdvReac Mild Itching Unverified 05/21/22 12:55 benztropine [From Cogentin] AdvReac Other (See Unverified 01/18/23 15:55 Comment) General Stated Complaint: Nk/Back Pain DEJUAN: 4 PFSH All Active Problems (Updated 03/02/23 @ 14:20 by MCKENNA Bean) Abscess (Acute) ADHD (Chronic) Asthma (Chronic) Dental infection (Acute) PCOS (polycystic ovarian syndrome) (Chronic) Surgical History S/P appendectomy S/P cholecystectomy Social History Smoking/Tobacco Use Status: Current every day Tobacco Type: cigarettes and e- cigarettes Smoking risk assessment performed?: Yes Alcohol Intake: current Alcohol Intake frequency: holidays/special occasions only Drug use: Daily Substance use type: marijuana Do you feel safe at home: Yes Do you feel safe in your relationship?: Yes Exam Const General: cooperative, comfortable and no acute distress Eyes Pupils: PERRL Neck Other: Small pustule noted to right lateral neck, no paraspinal tenderness, no fluctuance, no overlying significant erythema, approximately 5 mm area approximately 2 inches lateral to the paraspinal region, flexion and extension intact, no meningismus Resp Effort & Inspection: normal respiratory effort Auscultation: clear to auscultation bilaterally Cardio Rate: regular rate Rhythm: regular rhythm Skin General skin exam: no rashes or lesions noted Neuro General: patient alert and patient oriented x3 Cranial Nerves: CN's II-XI intact bilaterally and tongue midline Cognition: normal cognition Speech: speech normal Gait: normal gait Motor: strength 5/5 throughout, no pronator drift and no pronator drift noted Sensory Exam: no sensory deficits noted Extrem General: normal to inspection Course Vital Signs Vital signs: Vital Signs Temperature 36.8 C 03/02/23 13:50 Pulse 65 03/02/23 13:50 Respiratory Rate 18 03/02/23 13:50 Blood Pressure 124/66 03/02/23 13:50 Pulse Oximetry 99 03/02/23 13:50 Temperature 36.8 C 03/02/23 13:50 Temperature Source Temporal Artery Scan 03/02/23 13:50 Pulse 65 03/02/23 13:50 Respiratory Rate 18 03/02/23 13:50 Respiratory Effort Normal 03/02/23 13:54 Blood Pressure 124/66 03/02/23 13:50 Blood Pressure Position Sitting 03/02/23 13:50 Pulse Oximetry 99 03/02/23 13:50 Oxygen Delivery Method Room Air 03/02/23 13:50 Oxygen Flow Rate 0 03/02/23 13:50 Pain Level 7 03/02/23 13:54
--- NOTE | 2023-03-02 15:06 | NUR.NOTE ---
Nursing Note: Referral faxed to DI for MRI cervical spine c/o contrast for cervical radiculopathy. Follow up with PCP and to be done VIKI.
== END 2023-03-02 14:29 | disposition home or self-care (01) ==
PROVIDERS: Emergency Provider Physician Assistant
DX: L02.91 Cutaneous abscess, unspecified; M54.12 Radiculopathy, cervical region
CPT/HCPCS: 99283

== ENCOUNTER 2023-03-08 00:43 | Outpatient (CLI) | payer MEDICAID, SELFPAY ==
--- NOTE | 2023-03-08 | DI.MRI_ITS ---
Exam(s) MR CERVICAL SPINE WO EXAM: MR CERVICAL SPINE WO CLINICAL HISTORY: CERVICAL RADICULOPATHY, TECHNIQUE: Multiplanar multisequence MRI of the cervical spine was performed without intravenous con trast. COMPARISON: No exams were available for comparison FINDINGS: CERVICOMEDULLARY JUNCTION: Intact with no evidence of cerebellar tonsillar ectopia. No obvious abnor mality of the odontoid process. No evidence of Chiari 1 malformation. CERVICAL SPINAL CORD: There is no abnormal signal in the cervical spinal cord and no evidence of foca l cord atrophy nor focal cord swelling. OSSEOUS:There are no cervical fractures evident. No significant osseous lesions in the cervical vert ebrae. INDIVIDUAL LEVELS: C2-3: No disc herniation nor central canal stenosis. No foraminal stenosis. No facet arthropathy. C3-4: No disc herniation nor central canal stenosis.No facet arthropathy. No foraminal stenosis. C4-5: Normal disc height and signal. There is a small central subligamentous disc bulge which slight ly indents the thecal sac but not the spinal cord. There is no central spinal canal stenosis at this level. Also no significant foraminal stenosis. No significant facet arthropathy. C5-6: Normal disc height and signal. Small central subligamentous disc bulge no prominent disc herni ation. No significant central canal stenosis. No foraminal stenosis. No facet arthropathy. No Bailey chka joint osteophytes evident. C6-7: Normal disc height and signal. No disc herniation or spinal canal stenosis. C7-T1: No disc herniation nor central canal stenosis. No facet arthropathy.No foraminal stenosis. IMPRESSION: 1. Very mild findings at C4-5 and C5-6 levels, as described above. No dominant disc herniation evide nt. No significant central canal stenosis. No evidence of foraminal stenosis. 2. No significant facet arthropathy evident 3. Cervical spinal cord appears unremarkable. DATA REPOSITORY:
--- NOTE | 2023-03-10 04:52 | NUR.NOTE ---
Refferral placed to set up primary care. Results pending for DI
== END 2023-03-08 01:03 ==
PROVIDERS: Visit Provider Physician Assistant
DX: M50.121 Cervical disc disorder at C4-C5 level with radiculopathy (principal)
CPT/HCPCS: 72141

== ENCOUNTER 2023-03-20 18:20 | Emergency (ER) | payer MEDICAID, SELFPAY ==
[2023-03-20 18:23] VITALS: BP 117/65; PULSE 74; RESP 20; TEMP 36.5; O2SAT 100
--- NOTE | 2023-03-20 19:20 | ED.GENADUL_ITS ---
Discharge Plan Disposition Patient Disposition: Home Condition: Stable Discharge Details Clinical Impression: Dysmenorrhea Primary Care Provider: None,None ED Provider: Candy Nuñez Home Meds and New Rx's Prescriptions: Continued Advil Dual Action 125-250 mg Tablet 1 tab PO Q8H PRN Midol 500-25 mg Tablet 1 tab PO Q4H PRN multivitamin Tablet 1 tab PO DAILY acetaminophen 500 mg Tablet 1,000 mg PO PRN PRN naproxen [Naprosyn] 500 mg tablet 500 mg PO BID Qty: 20 0RF fluconazole [Diflucan] 150 mg tablet 150 mg PO ONCE Qty: 1 0RF Rx Instructions: as a single dose albuterol sulfate 90 mcg/actuation HFA aerosol inhaler 2 puff INHALATION PRN PRN Patient Comments: INHALE 2 PUFFS BY MOUTH EVERY 4 HOURS NEEDED Discharge Instructions Instructions: Abdominal Pain (ED) Additional Instructions: CT within normal limits. There is no evidence of urinary tract infection. Please take Tylenol or Ibuprofen with food every 4-6 hours as needed for pain and swelling. Follow up with primary care provider in 3-5 days. Return to ED sooner if any worsening or concerns. Increase oral fluids. No evidence of . Medical Decision Making 37-year-old female presents with chief complaint of vaginal cramping abdominal pain is 90 patient has been clogged. She reports nausea no vomiting. She reports radiation of pain to her right flank. Does have a history of polycystic ovarian syndrome, surgical history of appendectomy and cholecystectomy. Labs are largely within normal limits. CT also within normal limits Tylenol discharged with strict follow-up with PCP. This text was generated using [employer] system, please disregard any oddities of phrase or misspellings. Patient declined Tylenol. 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 Dictated and Authenticated by: Andres Jose MD Lab Data Lab results reviewed: Yes I reviewed the patient's lab results. Labs: Laboratory Tests Range/Units 03/20/23 03/20/23 03/20/23 19:05 19:49 19:49 WBC (4.4-10.8) 10^3/uL 7.90 RBC (3.93-5.22) 10^6/uL 4.40 Hgb (11.2-15.7) g/dL 13.1 Hct (36.0-46.0) % 38.5 MCV (80-95) fL 88 MCH (27.0-33.0) pg 29.8 MCHC (32.0-36.0) % 34.0 RDW (11.7-14.6) % 12.4 Plt Count (130-400) 10^3/uL 275 MPV (8.0-11.0) fL 9.3 Immature Gran % 0.3 Neutrophils % 63.6 Lymphocytes % 28.0 Monocytes % 7.0 Eosinophils % 0.8 Basophils % 0.3 Nucleated RBC % (0.0-0.3) % 0.0 Absolute Neutrophils (1.2-6.7) 10^3/uL 5.04 Absolute Lymphocytes (1.2-3.4) 10^3/uL 2.21 Absolute Monocytes (0.1-0.8) 10^3/uL 0.55 Absolute Eosinophils (0.0-0.7) 10^3/uL 0.06 Absolute Basophils (0.0-0.2) 10^3/uL 0.02 Sodium (136-145) mmol/L 141 Potassium (3.5-5.1) mmol/L 4.0 Chloride (98-107) mmol/L 105 Carbon Dioxide (21.0-32.0) mmol/L 28.0 Anion Gap (3-11) mmol/L 8.0 BUN (7-18) mg/dL 9 Creatinine (0.55-1.02) mg/dL 1.0 Est GFR (CKD-EPI 2020) (mL/min/1.73m2) 73.95 Glucose (74-106) mg/dL 89 Calcium (8.5-10.1) mg/dL 8.8 Magnesium (1.8-2.4) mg/dL 2.0 Total Bilirubin (0.2-1.0) mg/dL 0.2 AST (15-37) U/L 19 ALT (14-59) U/L 36 Alkaline Phosphatase (46-116) U/L 82 Total Protein (6.4-8.2) g/dL 7.4 Albumin (3.4-5.0) g/dL 3.5 Lipase (16-77) U/L 48 Urine Color (Yellow) Yellow Urine Clarity (Clear) Cloudy Urine pH (5-8) 7.0 Ur Specific [place] (1.005-1.025) 1.015 Urine Protein (Negative) mg/dL Negative Urine Ketones (Negative) mg/dL Negative Urine Blood (Negative) Large H Urine Nitrite (Negative) Negative Urine Bilirubin (Negative) Negative Urine Urobilinogen (Up to 0.2) mg/dL 0.2 Ur Leukocyte Esterase (Negative) Negative Urine RBC (0-2) HPF >50 H Urine WBC (0-5) HPF Negative Ur Epithelial Cells (Negative) HPF Rare Urine Crystals (Negative) HPF Negative Urine Bacteria (Negative) HPF Negative Urine Mucus (Negative) Negative Ur Culture Indicated? No Urine Glucose (Negative) mg/dL Negative HPI General Mode of arrival: ambulatory . Date/Time Provider Initiated Documentation: 03/20/23 18:23 . Limitations to Documentation: no limitations . Information obtained by: patient, RN notes reviewed and old records reviewed . HPI Narrative: 37-year-old female presents with chief complaint of vaginal cramping abdominal pain is 90 patient has been clogged. She reports nausea no vomiting. She reports radiation of pain to her right flank. Does have a history of polycystic ovarian syndrome, surgical history of appendectomy and cholecystectomy. Related Data Home Medications Medication Instructions Recorded Confirmed ibuprofen 125 mg-acetaminophen 250 1 tab PO Q8H PRN 07/19/21 03/02/23 mg tablet (Advil Dual Action) acetaminophen-pamabrom 500 mg-25 1 tab PO Q4H PRN 01/10/22 03/02/23 mg tablet (Midol) albuterol sulfate 90 mcg/actuation 2 puff inhalation PRN PRN 01/15/23 03/02/23 aerosol inhaler acetaminophen 500 mg tablet 1,000 mg PO PRN PRN 01/18/23 03/02/23 multivitamin 1 tab PO DAILY 01/18/23 03/02/23 naproxen 500 mg tablet (Naprosyn) 500 mg PO BID #20 tabs 01/18/23 03/02/23 fluconazole 150 mg tablet 150 mg PO ONCE #1 tab 03/02/23 (Diflucan) Previous Rx's Medication Instructions Recorded naproxen 500 mg tablet (Naprosyn) 500 mg PO BID #20 tabs 01/18/23 fluconazole 150 mg tablet 150 mg PO ONCE #1 tab 03/02/23 (Diflucan) Allergies Allergy/AdvReac Type Severity Reaction Status Date / Time haloperidol [From Haldol] Allergy Mild Other (See Unverified 03/20/23 18:27 Comment) buspirone HCl [From BuSpar] AdvReac Intermediate blackouts Unverified 03/20/23 18:27 hydroxyzine [From Vistaril] AdvReac Intermediate blackouts Unverified 03/20/23 18:27 sulfamethoxazole AdvReac Intermediate uncontrollable Unverified 03/20/23 18:27 [From Bactrim] vomiting trimethoprim [From Bactrim] AdvReac Intermediate uncontrollable Unverified 03/20/23 18:27 vomiting cyclobenzaprine HCl AdvReac Mild loss of Unverified 03/20/23 18:27 [From Flexeril] inhibition gabapentin [From Neurontin] AdvReac Mild muscle Unverified 03/20/23 18:27 spasms methocarbamol [From Robaxin] AdvReac Mild Other (See Unverified 03/20/23 18:27 Comment) paroxetine HCl [From Paxil] AdvReac Mild Itching Unverified 03/20/23 18:27 benztropine [From Cogentin] AdvReac Other (See Unverified 03/20/23 18:27 Comment) General Stated Complaint: Abd Prob DEJUAN: 3 Review of Systems All systems reviewed & are unremarkable except as noted in HPI and below Gastrointestinal Gastrointestinal: Reports abdominal pain and Reports nausea Genitourinary Genitourinary: Reports abnormal vaginal bleeding and Reports flank pain PFSH All Active Problems (Updated 03/20/23 @ 20:30 by Candy Nuñez NP) Abscess (Acute) Dysmenorrhea (Acute) ADHD (Chronic) Asthma (Chronic) Dental infection (Acute) PCOS (polycystic ovarian syndrome) (Chronic) Surgical History S/P appendectomy S/P cholecystectomy Social History Smoking/Tobacco Use Status: Current every day Tobacco Type: cigarettes and e- cigarettes Smoking risk assessment performed?: Yes Alcohol Intake: current Alcohol Intake frequency: holidays/special occasions only Drug use: Daily Substance use type: marijuana Do you feel safe at home: Yes Do you feel safe in your relationship?: Yes Exam Narrative Exam Narrative: Constitutional: Alert and oriented x3. Appears stated age. Normal body habitus. Head: Normocephalic, no trauma. Eyes: Pupils PERRL, Red reflex noted, EOM's intact. Eyelids symmetrical without lesions, discharge, or swelling. ENT: Bilateral TM's WNL, External ear normal to inspection, no mastoid TTP, swelling, or erythema, Nasal turbinates WNL, no nasal discharge. Normal dentition, Posterior pharynx WNL, no exudate. Chest: RRR, Normal S1, S2, distal pulses intact. Resp: Lungs clear to auscultation bilaterally, no wheezes, rales, or rhonchi. Abdomen: Soft, non-distended, Normoactive bowel sounds all 4 quads. Right lower quadrant abdominal pain with palpation. Musculoskeletal: Normal gait, 5/5 strength to all four extremities. Skin: No suspicious rashes or lesions. Capillary refill less than 2 sec. Neurologic: Cranial nerves II-XII intact. Alert and oriented x 3. Motor: No deficits noted. Sensory: Intact bilaterally all 4 extremities. Reflexes: DTR's intact bilaterally.. Hematologic/Lymphatic: No ecchymosis, no lymphadenopathy. Course Vital Signs Vital signs: Vital Signs Temperature 36.5 C 03/20/23 18:23 Pulse 74 03/20/23 18:23 Respiratory Rate 20 03/20/23 18:23 Blood Pressure 117/65 03/20/23 18:23 Pulse Oximetry 100 03/20/23 18:23 Temperature 36.5 C 03/20/23 18:23 Temperature Source Oral 03/20/23 18:23 Pulse 74 03/20/23 18:23 Respiratory Rate 20 03/20/23 18:23 Respiratory Effort Normal 03/20/23 18:28 Blood Pressure 117/65 03/20/23 18:23 Blood Pressure Position Supine 03/20/23 18:23 Pulse Oximetry 100 03/20/23 18:23 Oxygen Delivery Method Room Air 03/20/23 18:23 Oxygen Flow Rate 0 03/20/23 18:23 Pain Level 10 03/20/23 19:08 Lab/Test Results Lab/Test Results: POC- Test(urine) Negative
--- NOTE | 2023-03-20 19:22 | DI.CT_ITS ---
Exam(s) CT ABDOMEN PELVIS W EXAM: CT ABDOMEN PELVIS W CLINICAL HISTORY: RLQ Abd Pain TECHNIQUE: Imaging Protocol: Axial computed tomography images with coronal and sagittal reformatted images were created and reviewed CONTRAST MATERIAL: Intravenous: Omnipaque 350 Contrast volume:100 mL Oral: No COMPARISON: No exams were available for comparison FINDINGS: ABDOMEN: Lung Bases: There is a tiny left pleural effusion. Liver: Mild hepatomegaly. No measurable mass. Portal, Superior Mesenteric, and Splenic Veins: Unremarkable. Gallbladder and Biliary Tract: Status post cholecystectomy. No biliary ductal dilatation. Pancreas: Normal density, no abnormal calcifications or inflammatory process. Spleen: Normal. Adrenals: No masses seen. Kidneys: Normal size, contour and axis. No radiodense stones or obstructive uropathy. No masses seen. Abdominal Aorta: Abdominal portion non-dilated. Bowel: There are few diverticula seen in the colon but no evidence of acute diverticulitis. There is no evidence of bowel obstruction or bowel wall thickening. The patient appears to be status post ap pendectomy. Peritoneal Cavity: No ascites, collection or mesenteric inflammatory response. No free air. Lymph Nodes: Within normal limits. Bones: Within normal limits for the patient's age. There is unilateral right spondylolysis at L5. N o spondylolisthesis. Soft Tissues: Unremarkable. PELVIS: Bladder: Symmetric distention, no gross wall thickening. Reproductive Organs: Unremarkable as visualized. Lymph Nodes: Within normal limits. Bones: Within normal limits for the patient's age. IMPRESSION: 1. Status post appendectomy. 2. No evidence of nephrolithiasis or hydronephrosis. 3. Tiny left pleural effusion. RADIATION DOSE DELIVERED: 1,245.83mGy.cm Total DLP DATA REPOSITORY: All CT scans at this facility are submitted to the National Radiology Data Registry (NRDR) Dose Index Registry (DIR) with the [employer] (ACR). RADIATION OPTIMIZATION: All CT scans at this facility use at least one of these dose optimization te chniques: automated exposure control; mA and/or kV adjustment per patient size (includes targeted exa ms where dose is matched to clinical indication); or iterative reconstruction.
[2023-03-20 19:32] LABS: Bilirubin Negative (Negative); Blood Large (Negative); Clarity Cloudy (Clear); Glucose Negative (Negative); Ketones Negative (Negative); Leukocyte Esterase Negative (Negative); Nitrite Negative (Negative); Specific Gravity 1.015 (1.005-1.025); Urobilinogen 0.2 mg/dL (Up to 0.2)
[2023-03-20] MEDS: Omnipaque 350 MG/ML 100 ML BTL IJ (19:35)
[2023-03-20] MEDS: Normal Saline - Diluent 50 ML VIAL IJ (19:36)
[2023-03-20 19:43] LABS: RBC >50 HPF (0-2); WBC Negative HPF (0-5)
[2023-03-20 19:44] LABS: Bacteria Negative HPF (Negative); C & S Indicated? No; Crystals Negative HPF (Negative); Epithelial Cells Rare HPF (Negative); Mucus Negative (Negative)
[2023-03-20 20:04] LABS: Abs Immature Grans 0.02 10^3/uL (0.0-0.06); Absolute Basophil Count 0.02 10^3/uL (0.0-0.2); Absolute Eosinophil Count 0.06 10^3/uL (0.0-0.7); Absolute Lymphocyte Count 2.21 10^3/uL (1.2-3.4); Absolute Monocyte Count 0.55 10^3/uL (0.1-0.8); Absolute Neutrophil Count 5.04 10^3/uL (1.2-6.7); Basophils % 0.3; Eosinophils % 0.8; HCT 38.5 % (36.0-46.0); HGB 13.1 g/dL (11.2-15.7); Immature Grans % 0.3; MCH 29.8 pg (27.0-33.0); MCV 88 fL (80-95); MPV 9.3 fL (8.0-11.0); Neutrophils % 63.6; Platelet Count 275 10^3/uL (130-400); RDW 12.4 % (11.7-14.6); RDW-SD 39.8 fL
[2023-03-20 20:17] LABS: ALT 36 U/L (14-59); AST 19 U/L (15-37); Albumin 3.5 g/dL (3.4-5.0); Alkaline Phosphatase 82 U/L (46-116); BUN 9 mg/dL (7-18); Bilirubin, Total 0.2 mg/dL (0.2-1.0); Calcium 8.8 mg/dL (8.5-10.1); Chloride 105 mmol/L (98-107); Estimated GFR 73.95 (mL/min/1.73m2); Glucose 89 mg/dL (74-106); Lipase 48 U/L (16-77); Sodium 141 mmol/L (136-145); Total Protein 7.4 g/dL (6.4-8.2)
--- NOTE | 2023-03-20 20:27 | DI.VRAD_ITS ---
PROCEDURE INFORMATION: Exam: CT Abdomen And Pelvis With Contrast Exam date and time: 03/20/2023 7:52 PM Age: 37 years old Clinical indication: Other: Rlq pain TECHNIQUE: Imaging protocol: Computed tomography of the abdomen and pelvis with contrast. Contrast material: 350; Contrast volume: 100 ml; Contrast route: INTRAVENOUS (IV); COMPARISON: No relevant prior studies available. FINDINGS: Minimal left pleural fluid Liver: Hepatomegaly and diffuse fatty infiltration. No mass. Gallbladder and bile ducts: Prior cholecystectomy. No ductal dilation. Pancreas: Normal. No ductal dilation. Spleen: Normal. No splenomegaly. Adrenal glands: Normal. No mass. Kidneys and ureters: Normal. No hydronephrosis. Stomach and bowel: Unremarkable. No obstruction. No mucosal thickening. Appendix: Prior appendectomy. Intraperitoneal space: Unremarkable. No free air. No significant fluid collection. Vasculature: Unremarkable. No abdominal aortic aneurysm. Lymph nodes: Unremarkable. No enlarged lymph nodes. Urinary bladder: Unremarkable as visualized. Reproductive: Unremarkable as visualized. Bones/joints: Chronic right spondylolysis without spondylolisthesis at L5-S1. No acute fracture. Soft tissues: Unremarkable. 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 Ordering:POLINA Gupta MD
== END 2023-03-20 20:44 | disposition home or self-care (01) ==
PROVIDERS: Emergency Provider Registered Nurse Emergency
DX: N94.6 Dysmenorrhea, unspecified (principal)
CPT/HCPCS: 36415; 80053; 81025; 83690; 99285; 74177; 81003; 81015; 83735; 85025; 99284; J3490

== ENCOUNTER 2023-03-24 21:25 | Emergency (ER) | payer MEDICAID, SELFPAY ==
[2023-03-24 21:30] VITALS: BP 111/67; PULSE 76; RESP 16; TEMP 36.6; O2SAT 100
--- NOTE | 2023-03-24 21:53 | W.ED.GENAD ---
Discharge Plan Disposition Patient Disposition: Home Discharge Details Clinical Impression: Otalgia of right ear, Abnormal skin growth, Insect bite Primary Care Provider: None,None ED Provider: Bradley Garcia Home Meds and New Rx's Prescriptions: Continued Advil Dual Action 125-250 mg Tablet 1 tab PO Q8H PRN Midol 500-25 mg Tablet 1 tab PO Q4H PRN multivitamin Tablet 1 tab PO DAILY acetaminophen 500 mg Tablet 1,000 mg PO PRN PRN naproxen [Naprosyn] 500 mg tablet 500 mg PO BID Qty: 20 0RF fluconazole [Diflucan] 150 mg tablet 150 mg PO ONCE Qty: 1 0RF Rx Instructions: as a single dose albuterol sulfate 90 mcg/actuation HFA aerosol inhaler 2 puff INHALATION PRN PRN Patient Comments: INHALE 2 PUFFS BY MOUTH EVERY 4 HOURS NEEDED Discharge Instructions Referrals: Primary Care Provider [Outside] Discharge Data Discharge Date/Time-TO BE ENTERED AT DEPARTURE: 03/24/23 21:57 Medical Decision Making Patient presenting to the emergency department for chief complaint of right ear pain. She states for several months she has had an area of pain and discomfort on her neck. She states she has been seen for this but then over the past week or so she has started having some right ear pain. She does state some cracking and popping in her left ear but no pain or discomfort. She does also report on the left side of her neck some itchy rash areas. Patient denies any drainage from the ear, swelling, fever chills difficulty breathing or swallowing. Physical exam shows an abnormal skin finding to the posterior right neck where patient states her pain and discomfort is. Patient has no signs of meningitis, when distracted during exam does have full range of motion of neck with no nuchal rigidity noted. This does not appear emergent, infected, or worrisome at this time. As far as patient's years ago there may be subtle findings of clear effusion with air bubbles noted but no signs of infection, no mastoiditis, no malignant otitis, no TM rupture, no cerumen impaction. Rash on posterior left neck looks similar to insect bites. Patient does not make eye contact and has very odd affect. Offered steroid cream for itching rash, recommended dermatology follow-up for abnormal skin growth to the back of her neck along with pain. Otherwise discussed conservative management of otalgia with use of ibuprofen. Patient became upset after discussion of plan of care and reassuring patient that there were no emergent findings noted. Patient stated that she was homeless and that no one was helping her. Attempted to further discuss plan of care with patient when she stormed out of the room and did not want to further talk. Unsure what made patient upset. Of note patient was seen at [facility] earlier today and has had 4 ED visits within this month. This documentation was generated using [employer] system, please disregard any oddities of phrase or misspellings. HPI General Mode of arrival: ambulatory. Date/Time Provider Initiated Documentation: 03/24/23 21:26. Limitations to Documentation: no limitations. Information obtained by: patient. History of Present Illness 37 year old F presents to the emergency department with the chief complaint of Right ear pain, described as moderate, and is localized to the right (ear). Patient started experiencing this week(s) and it has been constant. No relieving factors improve symptom(s), No exacerbating factors reported . Patient did receive the following treatments prior to arrival, none Related Data Home Medications Medication Instructions Recorded Confirmed ibuprofen 125 mg-acetaminophen 250 1 tab PO Q8H PRN 07/19/21 03/24/23 mg tablet (Advil Dual Action) acetaminophen-pamabrom 500 mg-25 1 tab PO Q4H PRN 01/10/22 03/24/23 mg tablet (Midol) albuterol sulfate 90 mcg/actuation 2 puff inhalation PRN PRN 01/15/23 03/24/23 aerosol inhaler acetaminophen 500 mg tablet 1,000 mg PO PRN PRN 01/18/23 03/24/23 multivitamin 1 tab PO DAILY 01/18/23 03/24/23 naproxen 500 mg tablet (Naprosyn) 500 mg PO BID #20 tabs 01/18/23 03/24/23 fluconazole 150 mg tablet 150 mg PO ONCE #1 tab 03/02/23 03/24/23 (Diflucan) Previous Rx's Medication Instructions Recorded naproxen 500 mg tablet (Naprosyn) 500 mg PO BID #20 tabs 01/18/23 fluconazole 150 mg tablet 150 mg PO ONCE #1 tab 03/02/23 (Diflucan) Allergies Allergy/AdvReac Type Severity Reaction Status Date / Time buspirone HCl [From BuSpar] AdvReac Intermediate blackouts Unverified 03/24/23 21:35 hydroxyzine [From Vistaril] AdvReac Intermediate blackouts Unverified 03/24/23 21:35 sulfamethoxazole AdvReac Intermediate uncontrollable Unverified 03/24/23 21:35 [From Bactrim] vomiting trimethoprim [From Bactrim] AdvReac Intermediate uncontrollable Unverified 03/24/23 21:35 vomiting cyclobenzaprine HCl AdvReac Mild loss of Unverified 03/24/23 21:35 [From Flexeril] inhibition gabapentin [From Neurontin] AdvReac Mild muscle Unverified 03/24/23 21:35 spasms haloperidol [From Haldol] AdvReac Mild Other (See Unverified 03/24/23 21:35 Comment) methocarbamol [From Robaxin] AdvReac Mild Other (See Unverified 03/24/23 21:35 Comment) paroxetine HCl [From Paxil] AdvReac Mild Itching Unverified 03/24/23 21:35 benztropine [From Cogentin] AdvReac Other (See Unverified 03/24/23 21:35 Comment) General Stated Complaint: Nk/Back Pain DEJUAN: 3 Review of Systems Constitutional Constitutional: Denies chills, Denies fever(s), Reports headache(s) and Reports malaise ENT Ears, Nose, Mouth, and Throat: Denies ear discharge, Reports otalgia, Denies facial pain, Reports headache(s), Denies nasal congestion, Reports neck pain and Denies sore throat Cardiovascular Cardiovascular: Denies chest pain and Denies dyspnea Respiratory Respiratory: Denies dyspnea Musculoskeletal Musculoskeletal: Reports neck pain Integumentary/Breasts Skin/Breast: Reports pruritus and Reports rash Neurologic Neurologic: Reports headache(s) PFSH All Active Problems Abscess (Acute) Dysmenorrhea (Acute) Otalgia of right ear (Acute) Abnormal skin growth (Acute) Insect bite (Acute) ADHD (Chronic) Asthma (Chronic) Dental infection (Acute) PCOS (polycystic ovarian syndrome) (Chronic) Surgical History S/P appendectomy S/P cholecystectomy Social History Smoking/Tobacco Use Status: Current every day Tobacco Type: cigarettes and e-cigarettes Smoking risk assessment performed?: Yes Alcohol Intake: current Alcohol Intake frequency: holidays/special occasions only Drug use: Daily Substance use type: marijuana Do you feel safe at home: Yes Do you feel safe in your relationship?: Yes Exam Const General: cooperative, comfortable and no acute distress Orientation: alert and awake [facility] Head: normal to inspection, normocephalic and atraumatic Ears: hearing grossly normal bilaterally and TM abnormal with fluid behind the TM (clear) bilaterally General nose exam: external nose normal Face and sinus: no erythema Mouth: oral mucosae normal, no drooling, no muffled voice and no trismus Throat: posterior oropharynx normal Neck Neck: full ROM, no lymphadenopathy, no meningeal signs, trachea midline, supple and other (Abnormal posterior skin growth) Neck images: 1. Abnormal mole/skin growth 2. Multiple abnormal insect bites with excoriation Resp Effort & Inspection: normal respiratory effort and able to speak in complete sentences Skin Lesions: lesion noted Neuro General: patient alert, patient awake, patient oriented x3, gait normal and moves all extremities Psych Speech and Movement: agitated Mood: anxious mood and irritable mood Affect: blunted Attitude: guarded and avoids eye contact Course Vital Signs Vital signs: Vital Signs Temperature 36.6 C 03/24/23 21:30 Pulse 76 03/24/23 21:30 Respiratory Rate 16 03/24/23 21:30 Blood Pressure 111/67 03/24/23 21:30 Pulse Oximetry 100 03/24/23 21:30 Temperature 36.6 C 03/24/23 21:30 Temperature Source Temporal Artery Scan 03/24/23 21:30 Pulse 76 03/24/23 21:30 Respiratory Rate 16 03/24/23 21:30 Respiratory Effort Normal 03/24/23 21:30 Blood Pressure 111/67 03/24/23 21:30 Blood Pressure Position Sitting 03/24/23 21:30 Pulse Oximetry 100 03/24/23 21:30 Oxygen Delivery Method Room Air 03/24/23 21:30 Oxygen Flow Rate 0 03/24/23 21:30 Pain Level 8 03/24/23 21:47
--- NOTE | 2023-03-24 21:56 | NUR.NOTE ---
Nursing Note: discharged paperwork mailed, left before signing
== END 2023-03-24 21:57 | disposition home or self-care (01) ==
PROVIDERS: Emergency Provider Nurse Practitioner Family
DX: H92.01 Otalgia, right ear (principal); D49.2 Neoplasm of unspecified behavior of bone, soft tissue, and skin; W57.XXXA Bitten or stung by nonvenomous insect and other nonvenomous arthropods, initial encounter
CPT/HCPCS: 99281; 99282

== ENCOUNTER 2023-11-10 17:59 | Emergency (ER) | payer SELFPAY ==
[2023-11-10 18:04] VITALS: BP 155/114; PULSE 81; RESP 16; TEMP 37; O2SAT 99
[2023-11-10 18:24] LABS: Bilirubin Negative (Negative); Blood Trace-intact (Negative); Clarity Clear (Clear); Glucose Negative (Negative); Ketones Negative (Negative); Leukocyte Esterase Small (Negative); Nitrite Negative (Negative); Specific Gravity 1.015 (1.005-1.025); Urobilinogen 0.2 mg/dL (Up to 0.2)
[2023-11-10 18:32] LABS: Bacteria Rare HPF (Negative); C & S Indicated? No/Sq. Contamination; Casts Negative LPF (Negative); Crystals Negative HPF (Negative); Epithelial Cells Moderate HPF (Negative); Mucus Negative (Negative); RBC 0-2 HPF (0-2); WBC 0-2 HPF (0-5)
--- NOTE | 2023-11-10 18:44 | ED.GENADUL_ITS ---
HPI General Date/Time Provider Initiated Documentation: 11/10/23 18:01 . HPI Narrative: 38-year-old female presents with urinary frequency and dark foul-smelling urine. Related Data Home Medications Medication Instructions Recorded Confirmed ibuprofen 125 mg-acetaminophen 250 1 tab PO Q8H PRN 07/19/21 11/10/23 mg tablet (Advil Dual Action) acetaminophen-pamabrom 500 mg-25 1 tab PO Q4H PRN 01/10/22 11/10/23 mg tablet (Midol) albuterol sulfate 90 mcg/actuation 2 puff inhalation PRN PRN 01/15/23 11/10/23 aerosol inhaler acetaminophen 500 mg tablet 1,000 mg PO PRN PRN 01/18/23 11/10/23 multivitamin 1 tab PO DAILY 01/18/23 11/10/23 naproxen 500 mg tablet (Naprosyn) 500 mg PO BID #20 tabs 01/18/23 11/10/23 fluconazole 150 mg tablet 150 mg PO ONCE #1 tab 03/02/23 11/10/23 (Diflucan) cefpodoxime 100 mg tablet 100 mg PO BID 5 days #10 tabs 11/10/23 Previous Rx's Medication Instructions Recorded naproxen 500 mg tablet (Naprosyn) 500 mg PO BID #20 tabs 01/18/23 fluconazole 150 mg tablet 150 mg PO ONCE #1 tab 03/02/23 (Diflucan) cefpodoxime 100 mg tablet 100 mg PO BID 5 days #10 tabs 11/10/23 Allergies Allergy/AdvReac Type Severity Reaction Status Date / Time buspirone HCl [From BuSpar] AdvReac Intermediate blackouts Unverified 11/10/23 18:08 hydroxyzine [From Vistaril] AdvReac Intermediate blackouts Unverified 11/10/23 18:08 sulfamethoxazole AdvReac Intermediate uncontrollable Unverified 11/10/23 18:08 [From Bactrim] vomiting trimethoprim [From Bactrim] AdvReac Intermediate uncontrollable Unverified 11/10/23 18:08 vomiting cyclobenzaprine HCl AdvReac Mild loss of Unverified 11/10/23 18:08 [From Flexeril] inhibition gabapentin [From Neurontin] AdvReac Mild muscle Unverified 11/10/23 18:08 spasms haloperidol [From Haldol] AdvReac Mild Other (See Unverified 11/10/23 18:08 Comment) methocarbamol [From Robaxin] AdvReac Mild Other (See Unverified 11/10/23 18:08 Comment) paroxetine HCl [From Paxil] AdvReac Mild Itching Unverified 11/10/23 18:08 benztropine [From Cogentin] AdvReac Other (See Unverified 11/10/23 18:08 Comment) General Stated Complaint: Urinary DEJUAN: 4 Review of Systems Narrative: Review of Systems Constitutional: negative Eyes: negative ENT: negative Cardiovascular: negative Respiratory: negative Gastrointestinal: negative : Dark foul-smelling urine Musculoskeletal: negative Skin: negative Neurologic: negative Psych: negative Exam Narrative Exam Narrative: Physical Examination General: alert, awake, cooperative, resting comfortably, no acute distress HEENT: normocephalic, atraumatic; PERRL, EOM intact, conjunctiva normal; no nasal discharge; moist mucous membranes, oral and pharyngeal mucosa normal, tolerating secretions Skin: no lesions, rashes or trauma appreciated Neuro: AAOx3, normal speech, moving all extremities Course Vital Signs Vital signs: Vital Signs Temperature 37.0 C 11/10/23 18:04 Pulse 81 11/10/23 18:04 Respiratory Rate 16 11/10/23 18:04 Blood Pressure 155/114 H 11/10/23 18:04 Pulse Oximetry 99 11/10/23 18:04 Temperature 37.0 C 11/10/23 18:04 Temperature Source Skin 11/10/23 18:04 Pulse 81 11/10/23 18:04 Respiratory Rate 16 11/10/23 18:04 Respiratory Effort Normal, Non-Labored 11/10/23 18:09 Blood Pressure 155/114 H 11/10/23 18:04 Blood Pressure Position Sitting 11/10/23 18:04 Pulse Oximetry 99 11/10/23 18:04 Oxygen Delivery Method Room Air 11/10/23 18:04 Oxygen Flow Rate 0 11/10/23 18:04 Pain Level 6 11/10/23 18:04 Lab/Test Results Lab/Test Results: Laboratory Tests Range/Units 11/10/23 18:15 Urine Color (Yellow) Yellow Urine Clarity (Clear) Clear Urine pH (5-8) 7.0 Ur Specific [place] (1.005-1.025) 1.015 Urine Protein (Neg-Trace) mg/dL Negative Urine Ketones (Negative) mg/dL Negative Urine Blood (Negative) Trace-intact H Urine Nitrite (Negative) Negative Urine Bilirubin (Negative) Negative Urine Urobilinogen (Up to 0.2) mg/dL 0.2 Ur Leukocyte Esterase (Negative) Small H Urine RBC (0-2) HPF 0-2 Urine WBC (0-5) HPF 0-2 Ur Epithelial Cells (Negative) HPF Moderate Urine Crystals (Negative) HPF Negative Urine Bacteria (Negative) HPF Rare Urine Casts (Negative) LPF Negative Urine Mucus (Negative) Negative Ur Culture Indicated? No/Sq. Contamination Urine Glucose (Negative) mg/dL Negative POC- Test(urine) Negative Medical Decision Making 38-year-old female presents with dark foul-smelling urine, history of recurrent UTIs. Afebrile nontoxic. UA positive. Will treat [place] of cefpodoxime. Home care instructions and return precautions given Quality:SDOH Health Related Social Needs: No Data to Display PFSH All Active Problems (Updated 11/10/23 @ 18:46 by Danish Austin MD) UTI (urinary tract infection) (Acute) ADHD (Chronic) Asthma (Chronic) Dental infection (Acute) PCOS (polycystic ovarian syndrome) (Chronic) Surgical History S/P appendectomy S/P cholecystectomy Social History Smoking/Tobacco Use Status: Current every day Tobacco Type: cigarettes and e- cigarettes Smoking risk assessment performed?: Yes Alcohol Intake: current Alcohol Intake frequency: holidays/special occasions only Drug use: Daily Substance use type: marijuana Do you feel safe at home: Yes Do you feel safe in your relationship?: Yes Discharge Plan Disposition Patient Disposition: Home Condition: Improving Discharge Details Clinical Impression: UTI (urinary tract infection) Primary Care Provider: Unknown,Unknown ED Provider: Danish Austin Home Meds and New Rx's Prescriptions: New cefpodoxime 100 mg tablet 100 mg PO BID 5 Days Qty: 10 0RF Rx Instructions: must administer with a meal/food No Action ibuprofen-acetaminophen [Advil Dual Action] 125-250 mg Tablet 1 tab PO Q8H PRN Midol 500-25 mg Tablet 1 tab PO Q4H PRN multivitamin Tablet 1 tab PO DAILY acetaminophen 500 mg Tablet 1,000 mg PO PRN PRN naproxen [Naprosyn] 500 mg tablet 500 mg PO BID Qty: 20 0RF fluconazole [Diflucan] 150 mg tablet 150 mg PO ONCE Qty: 1 0RF Rx Instructions: as a single dose albuterol sulfate 90 mcg/actuation HFA aerosol inhaler 2 puff INHALATION PRN PRN Patient Comments: INHALE 2 PUFFS BY MOUTH EVERY 4 HOURS NEEDED Discharge Instructions Instructions: Urinary Tract Infection in Women (ED)
[2023-11-10] MEDS: Cefpodoxime 200 MG TAB PO (18:51)
== END 2023-11-10 18:51 | disposition home or self-care (01) ==
PROVIDERS: Emergency Provider Emergency Medicine
DX: N39.0 Urinary tract infection, site not specified (principal); F17.210 Nicotine dependence, cigarettes, uncomplicated; F17.290 Nicotine dependence, other tobacco product, uncomplicated
CPT/HCPCS: 81025; 99283; 81003; 81015

== ENCOUNTER 2024-04-07 12:17 | Emergency (ER) | payer MEDICAID, SELFPAY ==
[2024-04-07 12:19] VITALS: BP 115/83; PULSE 78; RESP 14; TEMP 37.1; O2SAT 98
--- OUTSIDE RECORDS SUMMARY | 2024-04-07 12:28 | XMS_ITS | Encounter Summary ---
Author Organization [facility] Address [address] [place] [address] Care Team Providers Care Tractor Driver Name Role Phone Gemma Zamora MD Primary Care Provider [phone] Encounter Details Date Type Department Care Team (Latest Contact Info) Description 07/31/2015 10:45 EST - 07/31/2015 23:59 EST Hospital Encounter [address] [address] Unknown, Provider, Discharge Disposition: Home or Self Care Social History Tobacco Use Types Packs/Day Years Used Date Smoking Tobacco: Never Assessed Sex and Gender Information Value Date Recorded Sex Assigned at Not on file Gender Identity Female 06/22/2022 19:03 EDT Sexual Orientation Not on file documented as of this encounter Discharge Disposition Disposition Code Departure Means Destination Home or Self Intermediate documented in this encounter Plan of Treatment Not on file documented as of this encounter Visit Diagnoses Not on filedocumented in this encounter Care Teams Tractor Driver Relationship Specialty Start Date End Date Gemma Zamora MD [address] [place] [address],[facility] [[email or web address] [address] [place] [address] PCP - General 04/24/09 08/06/15 documented as of this encounter
--- OUTSIDE RECORDS SUMMARY | 2024-04-07 12:28 | XMS_ITS | Encounter Summary ---
Author Organization [facility] Address [address] [place] [address] Care Team Providers Care Wafer Line Worker Name Role Phone Unavailable Primary Care Provider Unavailabl e Encounter Details Date Type Department Care Team (Late st Contact Info) Description 03/27/2008 10:09 EDT - 03/27/2008 11:59 EDT Hospital Encounter [facility] [address] [place] [address] Gemma Zamora MD [address] [place] [address],[address] [address] Discharge Disposition: Home or Self Care Social History Tobacco Use Types Packs/Day Years Used Date Smoking Tobacco: Never Assessed Sex and Gender Information Value Date Recorded Sex Assigned at Not on file Gender Identity Female 06/22/2022 19:03 EDT Sexual Orientation Not on file documented as of this encounter Discharge Disposition Disposition Code Departure Means Destination Home or Self Care documented in this encounter Plan of Treatment Not on file documented as of this encounter Procedures Procedure Name Priority Date/Time Associated Diagnosis Comments CYTOPATHOLOGY Routine 04/22/2009 0:00 EDT documented in this encounter Results * CYTOPATHOLOGY (04/22/2009 0:00 EDT) Pathology Report: CYTOPATHOLOGY REPORT ? Reports generated via electronic interface contain original data; ? however they are lacking the format of the original report. ? Caution should be taken when reading/interpreti ng unformatted reports. ? Name: ? ALE ALFONSO ? Accession #: ? [id number] ? : ? 1985 (Age: 23) ??F ?Collect Date: ? 04/22/2009 ? Location: ? [facility] ? Receive Date: ? 04/23/2009 ? Provider: ?GEMMA ZAMORA MD ? Copy to: ? Specimen/Source: ?Pap Test, Cervix, ThinPrep Imaging System with manual ?? evaluation ? Last Menstrual Period: ? 07/07/09 ? Previous Gynecologic Pathology: ? HSIL ? Treatment History: ? Colposcopy: 2008 ? Other: ? Additional clinical information: Neg HPV 2008 ? HPVA - HPV testing requested if ASC-US on the current ThinPrep Pap test. ? SPECIMEN ADEQUACY ? Satisfactory for Evaluation ? - transformation zone component present ? GENERAL CATEGORIZATION ? Negative for Intraepithelial Lesion or Malignancy ? Document reviewed and electronically signed by: ? Hilda Leggett, SCT(ASCP) ? Report Date: ??04/25/2009 15:33 ? End of Report ? [facility]ANET[facility] WALLIS 04/22/2009 04/23/2009 Gemma Zamora MD PATHOLOGY ORDERABLES [facility] [address] [place] [address] documented in this encounter Visit Diagnoses Not on filedocumented in this encounter
--- OUTSIDE RECORDS SUMMARY | 2024-04-07 12:28 | XMS_ITS | Encounter Summary ---
Author Organization [facility] Address [address] [place] [address] Care Team Providers Care Sheetmetal Trades Worker Name Role Phone Unknown, Provider Primary Care Provider Encounter Details Date Type Department Care Team (Latest Contact Info) Description 06/22/2022 Travel Social History Tobacco Use Types Packs/Day Years Used Date Smoking Tobacco: Never Assessed Interpersonal Safety Answer Date Record ed Physically Hurt Never 04/27/2020 Verbally Threaten Not on file 04/27/2020 Sex and Gender Information Value Date Recorded Sex Assigned at Not on file Gender Identity Female 06/22/2022 19:03 EDT Sexual Orientation Not on file COVID-19 Exposure Response Date Recorded In the last 10 days, have yo u been in contact with someone who was confirmed or suspected to have Coronavirus/COVID-19? No / Unsure 06/22/2022 17:53 EDT documented as of this encounter Functional Status Functional Status Response Date of Assess ment Are you deaf or do you have serious difficulty h earing? No 06/22/2022 documented as of this encounter Plan of Treatment Not on file documented as of this encounter Visit Diagnoses Not on filedocumented in this encounter Care Teams Sheetmetal Trades Worker Relationship Specialty Start Date End Date Unknown, Provider, PCP - General 08/07/15 documented as of this encounter
--- OUTSIDE RECORDS SUMMARY | 2024-04-07 12:28 | XMS_ITS | Encounter Summary ---
Author Organization [facility] Address [address] [place] [address] Care Team Providers Care Sample Driller Name Role Phone Unknown, Provider Primary Care Provider [phone] Encounter Details Date Type Department Care Team (Late st Contact Info) Description 10/19/[address] [facility] [phone] Gemma Zamora MD [address] [place] [address],[address] [address] Social History Tobacco Use Types Packs/Day Years Used Date Smoking Tobacco: Never Assessed Sex and Gender Information Value Date Recorded Sex Assigned at Not on file Gender Identity Female 06/22/2022 19:03 EDT Sexual Orientation Not on file documented as of this encounter Plan of Treatment Not on file documented as of this encounter Procedures Procedure Name Priority Date/Time Associated Diagnosis Comments SURGICAL PATHOLOGY Routine 10/19/2017 16 :59 EST documented in this encounter Results * SURGICAL PATHOLOGY (10/19/2017 16:59 EST) Pathology Report: SURGICAL PATHOLOGY REPORT Reports generated via electronic interface contain original data; however they are lacking the format of the original report. Caution should be taken when reading/interpret ing unformatted reports. Name: ? ALFONSOALE ? Accession #: ? [id number] ? : ? 1985 (Age: 32) ??F ? Collect Date: ? 10/19/2017 ? Location: ? [facility] ? Receive Date: ? 10/20/2017 ? Provider: GEMMA ZAMORA MD Copy to: ? Final Pathologic Diagnosis: SKIN OF BACK, SHAVE REMOVAL: - Melanocytic nevus, predominantly intradermal type. See comment. - Lesion extends to peripheral edge and base of biopsy specimen. Comment: Deeper levels have been examined. Document reviewed and electronically signed by: PHILLIP TAYLOR MD Report ??Date: 10/24/2017 08:27 By the signature above, the attending physician certifies that he/she has personally conducted a gross and/or microscopic examination of the described specimens and rendered or confirmed the above diagnosis. Specimen(s) Received: Shave removal on back Clinical History: Benign appearing nevus, removed for symptoms Gross Description: ? Received in formalin labelled with proper patient identification (initials B, C) and not otherwise specified is a shave biopsy of a uriarte-pink granular, firm papule (1.1 x 0.7 x 0.5 cm). The specimen is inked, bisected, and submitted in 1. MCKENNA Cintron (ASCP) 10/20/2017 5:07 PM End of Report [facility] 10/19/2017 16:5 9 EST 10/20/2017 16:59 EST Gemma Zamora MD PATHOLOGY ORDERABLES [facility] [address] [place] [address] documented in this encounter Visit Diagnoses Not on filedocumented in this encounter Care Teams Sample Driller Relationship Specialty Start Date End Date Unknown, Provider, PCP - General 08/07/15 documented as of this encounter
--- OUTSIDE RECORDS SUMMARY | 2024-04-07 12:28 | XMS_ITS | Clinical Summary ---
Author Organization [facility] Address [address] [place] [id number] Care Team Providers Care Electric Meter Repairer Name Role Phone Unknown, Provider Primary Care Provider Allergies Active Allergy Reactions Criticality Noted Date Comments Buspirone Drowsiness 06/22/2022 Gabapentin Muscle Aches 06/22/2022 Haloperidol Lactate Other (See Comments) 2021 I get thrush Hydroxyzine Other (See Comments) 06/22/2022 I black out Social History Tobacco Use Types Packs/Day Years Used Date Smoking Tobacco: Never Assessed Interpersonal Safety Answer Date Record ed Physically Hurt Never 04/27/2020 Verbally Threaten Not on file 04/27/2020 Sex and Gender Information Value Date Recorded Sex Assigned at Not on file Gender Identity Female 06/22/2022 19:03 EDT Sexual Orientation Not on file Obstetrics History Last Filed Vital Signs Vital Sign Reading Time Taken Comments Blood Pressure 131/68 06/22/2022 1752 EDT Pulse - - Temperature 36.5 ??C (97.7 ??F) 06/22/2022 1752 EDT Respiratory Rate 16 06/22/2022 1752 EDT Oxygen Saturation 100% 06/22/2022 175 EDT Inhaled Oxygen Concentration - - Weight - - Height - - Body Mass Index - - Plan of Treatment Health Maintenance Due Date Last Done Comments Hepatitis C Screen 1985 Hepatitis B Vaccine (1 of 3 - 19+ 3-dose series) 07/23 COVID-19 Vaccine (2022- season) 2023 Care Teams Electric Meter Repairer Relationship Specialty Start Date End Date Unknown, Provider, PCP - General 08/07/15
--- OUTSIDE RECORDS SUMMARY | 2024-04-07 12:28 | XMS_ITS | Encounter Summary ---
Author Organization [facility] Address [address] [place] [address] Care Team Providers Care Corn Detasseler Machine Operator Name Role Phone Unavailable Primary Care Provider Unavailabl e Encounter Details Date Type Department Care Team (Late st Contact Info) Description 12/05/2007 16:04 EDT Hospital Encounter [facility] - Other [address] [place] [address] Gemma Zamora MD [address] [place] [address],[facility] [address] [place] [address] Discharge Disposition: Home or Self Care Social [...] Procedure Name Priority Date/Time Associated Diagnosis Comments HPV DETECTION, HIGH RISK TYPES Routine 03/27/2008 8:21 EDT CYTOPATHOLOGY Routine 03/27/2008 0:00 EDT CYTOPATHOLOGY Routine 03/27/2008 0:00 EDT SURGICAL PATHOLOGY Routine 03/27/2008 0: 00 EDT SURGICAL PATHOLOGY Routine 03/27/2008 0: 00 EDT documented in this encounter Results * HUMAN PAPILLOMA VIRUS DNA TEST (03/27/2008 8:21 EDT) Specimen Description Cervix, ThinPrep vial [facility] Result Negative for HPV types 16, 18, 31, 33, 35, 39, 45, 51, 52, 56, 58, 59, and 68. [facility] Report Status Final [id number] [facility] 03/27/2008 8:21 EDT 04/02/2008 8:21 EDT Gemma Zamora MD MICROBIOLOGY - GENER AL ORDERABLES [facility] [address] [place] [address] * CYTOPATHOLOGY (03/27/2008 0:00 EDT) Pathology Report: CYTOPATHOLOGY REPORT Reports generated via electronic interface contain original data; however they are lacking the format of the original report. Caution should be taken when reading/interpreti ng unformatted reports. Name: ? ALE ALFONSO ? Accession #: ? [id number] : ? 1985 (Age: 22) ??F ?Collect Date: ? 03/27/2008 Location: ? [facility] ? Receive Date: ? 04/01/2008 Provider: ?GEMMA ZAMORA MD Copy to: ? Specimen/Source: ?ThinPrep Pap Test, Cervix/Endocervix, processed on [facility] ThinPrep Imaging System, with manual evaluation Last Menstrual Period: ? 02/26/08 Previous Gynecologic Pathology: ? HSIL: PAP 10/03 Other: ? Colposcopy Pap and/or biopsy in progress: looks mild today HPVDX - HPV testing requested regardless of diagnosis on current ThinPrep Pap test. ? SPECIMEN ADEQUACY ? Satisfactory for Evaluation - transformation zone component absent GENERAL CATEGORIZATION ? Negative for Intraepithelial Lesion or Malignancy ? Document reviewed and electronically signed by: ? Ailyn Tirado, CT(ASCP)(IAC) ? Report Date: ??04/01/2008 17:19 End of Report [facility] 03/27/2008 04/01/2008 Gemma Zamora MD PATHOLOGY ORDERABLES [facility] [address] [place] [address] * SURGICAL PATHOLOGY (03/27/2008 0:00 EDT) Pathology Report: SURGICAL PATHOLOGY REPORT Reports generated via electronic interface contain original data; however they are lacking the format of the original report. Caution should be taken when reading/interpreti ng unformatted reports. Name: ? ALE ALFONSO ? Accession #: ? [id number] ? : ? 1985 (Age: 22) ??F ? Collect Date: ? 03/27/2008 ? Location: ? [facility] ? Receive Date: ? 03/28/2008 ? Provider: GEMMA ZAMORA MD Copy to: ? Final Pathologic Diagnosis: ? Cervix, 5 o'clock, biopsy: - Suggestive, but not diagnostic of low grade squamous intraepithelial lesion. See comment. Comment: ? There is focal koilocytic atypia, but the variability in the size and shape of the nuclei is not sufficient to make a definitive diagnosis of low grade squamous intraepithelial lesion. ??Dr. Lucero Parra has reviewed this case in consultation and concurs with the above diagnosis. ??(Dr. Hill)/[facility] Document reviewed and electronically signed by: Tyler Navarro MD Report ??Date: 04/03/2008 15:31 By the signature above, the attending physician certifies that he/she has personally conducted a gross and/or microscopic examination of the described specimens and rendered or confirmed the above diagnosis. Specimen(s) Received: ? Cervical biopsy 5 o'clock Clinical History: ? HGSIL Pap 10/03. ??Colpo today c/w mild dysplasia. ??Clinical diagnosis code: 795.04 Gross Description: ? Received in formalin labelled Alfonso are two uriarte-white soft tissue fragments which average 0.2 x 0.2 x 0.1 cm. ??Submitted entirely in one cassette. (Dr. Matt)/[facility] End of Report [facility] 03/27/2008 03/28/2008 16: 24 EDT Gemma Zamora MD PATHOLOGY ORDERABLES Performing Organization Address City/State/[facility] Co de Phone Number [facility] [address] [place] [address] * SURGICAL PATHOLOGY (03/27/2008 0:00 EDT) Pathology Report: SURGICAL PATHOLOGY REPORT ? Reports generated via electronic interface contain original data; ? however they are lacking the format of the original report. ? Caution should be taken when reading/interpreti ng unformatted reports. ? Name: ? ALFONSO, ALE ? Accession #: ? [id number] ? : ? 1985 (Age: 22) ??F ? Collect Date: ? 03/27/2008 ? Location: ? [facility] ? Receive Date: ? 03/28/2008 ? Provider: GEMMA P YOUNG-DOHERTY MD ? Copy to: ? Final Pathologic Diagnosis: ? Cervix, 5 o'clock, biopsy: ? - Suggestive, but not diagnostic of low grade squamous intraepithelial lesion. ?? See comment. ? Comment: ? There is focal koilocytic atypia, but the variability in the size and shape of the nuclei is not sufficient to make a definitive diagnosis of low grade ? squamous intraepithelial lesion. ??Dr. Lucero Parra has reviewed this case in ?? consultation and concurs with the above diagnosis. ??(Dr. Hill)/[facility] ? Document reviewed and electronically signed by: ? Tyler Navarro MD ? Report ??Date: 04/03/2008 15:31 ? By the signature above, the attending physician certifies that he/she has ? personally conducted a gross and/or microscopic examination of the described ? specimens and rendered or confirmed the above diagnosis. ? Specimen(s) Received: ? Cervical biopsy 5 o'clock ? Clinical History: ? HGSIL Pap /. ??Colpo today c/w mild dysplasia. ??Clinical diagnosis code: 795.04 ? Gross Description: ? Received in formalin labelled Alfonso are two uriarte-white soft tissue ? fragments which average 0.2 x 0.2 x 0.1 cm. ??Submitted entirely in one cassette. (Dr. Matt)/[facility] ? End of Report ? [facility] 03/27/2008 03/28/2008 16: 24 EDT Gemma Zamora MD PATHOLOGY ORDERABLES [facility] [address] [place] [address] * CYTOPATHOLOGY (03/27/2008 0:00 EDT) Pathology Report: CYTOPATHOLOGY REPORT ? Reports generated via electronic interface contain original data; ? however they are lacking the format of the original report. ? Caution should be taken when reading/interpreti ng unformatted reports. ? Name: ? ALE ALFONSO ? Accession #: ? [id number] ? : ? 1985 (Age: 22) ??F ?Collect Date: ? 03/27/2008 ? Location: ? [facility] ? Receive Date: ? 04/01/2008 ? Provider: ?GEMMA P YOUNG-DOHERTY MD ? Copy to: ? Specimen/Source: ?ThinPrep Pap Test, Cervix/Endocervix, processed on [facility] ThinPrep Imaging System, with manual evaluation ? Last Menstrual Period: ? 06/02/08 ? Previous Gynecologic Pathology: ? HSIL: PAP 1/08 ? Other: ? Colposcopy Pap and/or biopsy in progress: looks mild today ? HPVDX - HPV testing requested regardless of diagnosis on current ThinPrep Pap ?? test. ? SPECIMEN ADEQUACY ? Satisfactory for Evaluation ? - transformation zone component absent ? GENERAL CATEGORIZATION ? Negative for Intraepithelial Lesion or Malignancy ? Document reviewed and electronically signed by: ? Ailyn Tirado, CT(ASCP)(IAC) ? Report Date: ??04/01/2008 17:19 ? End of Report ? [facility] 03/27/2008 04/01/2008 Gemma Zamora MD PATHOLOGY ORDERABLES [facility] [address] [place] [address] documented in this encounter Visit Diagnoses Not on filedocumented in this encounter
--- OUTSIDE RECORDS SUMMARY | 2024-04-07 12:28 | XMS_ITS | Encounter Summary ---
Author Organization [facility] Address [address] [place] [address] Care Team Providers Care Ibm Mainframe Developer Name Role Phone Gemma Zamora MD Primary Care Provider [phone] Encounter Details Date Type Department Care Team (Late st Contact Info) Description 06/12/2010 10:52 EDT - 06/12/2010 10:53 EDT Hospital Encounter [facility] - Other [address] [place] [address] Gemma Zamora MD [address] ,[address] [id number] Discharge Disposition: Home or Self Care Social [...] on filedocumented in this encounter Care Teams Ibm Mainframe Developer Relationship Specialty Start Date End Date Gemma Zamora MD [address] ,[address] [phone] PCP - General 04/24/09 08/06/15 documented as of this encounter
--- OUTSIDE RECORDS SUMMARY | 2024-04-07 12:28 | XMS_ITS | Referral Summary ---
Author Organization [facility] Address [address] [place] [address] Care Team Providers Care Ict Programmer Name Role Phone Unknown, Provider Primary Care Provider [phone] Allergies Active Allergy Reactions Criticality Noted Date [...] 19:03 EDT Sexual Orientation Not on file Last Filed Vital Signs Vital Sign Reading Time Taken Comments Blood Pressure 131/68 06/22/2022 1752 EDT Pulse - - Temperature 36.5 ??C (97.7 ??F) 06/22/2022 1752 EDT Respiratory Rate 16 06/22/2022 1752 EDT Oxygen Saturation 100% 06/22/2022 175 EDT Inhaled Oxygen Concentration - - Weight - - Height - - Body Mass Index - - Functional Status Functional Status Response Date of Assess ment Are you deaf or do you have serious difficulty h earing? No 06/22/2022 Plan of Treatment Not on file Care Teams Ict Programmer Relationship Specialty Start Date End Date Unknown, Provider, PCP - General 08/07/15
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
--- OUTSIDE RECORDS SUMMARY | 2024-04-07 12:28 | XMS_ITS | Encounter Summary ---
Author Organization [facility] Address [address] [place] [address] Care Team Providers Care Tin Can Laborer Name Role Phone Unknown, Provider Primary Care Provider Encounter Details Date Type Department Care Team (Latest Contact Info) Description 10/19/2017 10:03 EST - 10/19/2017 23:59 EST Hospital Encounter [address] [address] Unknown, Provider, Discharge Disposition: Home or Self Care Social History Tobacco Use Types Packs/Day Years Used Date Smoking Tobacco: Never Assessed Sex and Gender Information Value Date Recorded Sex Assigned at Not on file Gender Identity Female 06/22/2022 19:03 EDT Sexual Orientation Not on file documented as of this encounter Discharge Disposition Disposition Code Departure Means Destination Home or Self Correction documented in this encounter Plan of Treatment Not on file documented as of this encounter Visit Diagnoses Not on filedocumented in this encounter Care Teams Tin Can Laborer Relationship Specialty Start Date End Date Unknown, Provider, PCP - General 08/07/15 documented as of this encounter
--- OUTSIDE RECORDS SUMMARY | 2024-04-07 12:28 | XMS_ITS | Encounter Summary ---
Author Organization [facility] Address [address] [place] [address] Care Team Providers Care Automotive Sales Manager Name Role Phone Gemma Zamora MD Primary Care Provider Encounter Details Date Type Department Care Team (Late st Contact Info) Description 10/06/2007 Results Only [facility] - Maple conversion [address] [place] [address] Gemma Zamora MD [address] [place] [address],[address] [address] Social History Tobacco Use Types Packs/Day Years Used Date Smoking Tobacco: Never Assessed Sex and Gender Information Value Date Recorded Sex Assigned at Not on file Gender Identity Female 06/22/2022 19:03 EDT Sexual Orientation Not on file documented as of this encounter Plan of Treatment Not on file documented as of this encounter Procedures Procedure Name Priority Date/Time Associated Diagnosis Comments CYTOPATHOLOGY Routine 10/06/2007 0:00 EST documented in this encounter Results * CYTOPATHOLOGY (10/06/2007 0:00 EST) Pathology Report: CYTOPATHOLOGY REPORT Reports generated via electronic interface contain original data; however they are lacking the format of the original report. Caution should be taken when reading/interpreti ng unformatted reports. Name: ? LINDA ALE ? Accession #: ? [id number] : ? 1985 (Age: 22) ??F ?Collect Date: ? 10/06/2007 Location: ? [facility] ? Receive Date: ? 10/10/2007 Provider: ?GEMMA ZAMORA MD Copy to: ? Specimen/Source: ?ThinPrep Pap Test, Cervix/Endocervix, processed on [employer] ThinPrep Imaging System, with manual evaluation Last Menstrual Period: ? 09/01/07 Other: ? HPVA - HPV testing requested if ASC-US on the current ThinPrep Pap test. ? SPECIMEN ADEQUACY ? Satisfactory for Evaluation - transformation zone component present GENERAL CATEGORIZATION ? Epithelial Cell Abnormality INTERPRETATION ? Squamous Cell Abnormality - High grade squamous intraepithelial lesion (HSIL). EDUCATIONAL NOTES/RECOMMENDATI ONS ? [facility] recommends following the 2006 Consensus Guidelines for the Management of Women with Abnormal Cervical Cancer Screening Tests (JLGTD, 2007;11(4):201-222 ). ??Consensus guidelines are available online at www.ASCCP.org. ? Document reviewed and electronically signed by: ? FERNY JEFFERY MD ? Report Date: ??10/16/2007 11:59 End of Report [facility] 10/06/2007 10/10/2007 Gemma Zamora MD PATHOLOGY ORDERABLES [facility] [address] [place] [address] documented in this encounter Visit Diagnoses Not on filedocumented in this encounter Care Teams Automotive Sales Manager Relationship Specialty Start Date End Date Gemma Zamora MD [address] [place] [address] PCP - General 04/24/09 08/06/15 documented as of this encounter
--- OUTSIDE RECORDS SUMMARY | 2024-04-07 12:28 | XMS_ITS | Encounter Summary ---
Author Organization [facility] Address [address] [place] [address] Care Team Providers Care Oracle Applications Analyst Name Role Phone Gemma Zamora MD Primary Care Provider Encounter Details Date Type Department Care Team (Late st Contact Info) Description 06/12/2010 Results Only [facility] Services - [facility] ([facility]) [address] [place] [id number] Gemma Zamora MD [address] [place] [address],[facility] [address] [place] [address] Social History Tobacco Use Types Packs/Day Years Used Date Smoking Tobacco: Never Assessed Sex and Gender Information Value Date Recorded Sex Assigned at Not on file Gender Identity Female 06/22/2022 19:03 EDT Sexual Orientation Not on file documented as of this encounter Plan of Treatment Not on file documented as of this encounter Procedures Procedure Name Priority Date/Time Associated Diagnosis Comments CYTOPATHOLOGY Routine 06/12/2010 0:00 EDT documented in this encounter Results * CYTOPATHOLOGY (06/12/2010 0:00 EDT) Pathology Report: CYTOPATHOLOGY REPORT ? Reports generated via electronic interface contain original data; ? however they are lacking the format of the original report. ? Caution should be taken when reading/interpreti ng unformatted reports. ? Name: ? ALE ALFONSO ? Accession #: ? [id number] ? : ? 1985 (Age: 24) ??F ?Collect Date: ? 06/12/2010 ? Location: ? [facility] ? Receive Date: ? 06/15/2010 ? Provider: GEMMA P YOUNG-DOHERTY MD ? Copy to: ? Final Report ? SPECIMEN ADEQUACY ? Satisfactory for Evaluation ? - transformation zone component present ? GENERAL CATEGORIZATION ? Epithelial Cell Abnormality ? INTERPRETATION ? Squamous Cell Abnormality - Atypical squamous cells, undetermined ? significance (ASC-US). ? EDUCATIONAL NOTES/RECOMMENDATI ONS ? [facility] recommends following the 2006 Consensus Guidelines for the Management of Women with Abnormal Cervical Cancer Screening Tests (JLGTD, ? 2007;11(4):201-222 ). ??Consensus guidelines are available online at ? www.ASCCP.org. ? Last Menstural Period: 8/17/10 ? Previous Gynecologic Pathology: HSIL: Hx 2007 ? Other: Additional clinical information: HPV negative 2008 ? HPVA - HPV testing requested if ASC-US on the current ThinPrep Pap test. ? Specimen/Source: ??Pap Test, Cervix, ThinPrep Imaging System with manual ? evaluation ? Document reviewed and electronically signed by: ? FRANK L BARAJAS MD ? Report ??Date: 06/23/2010 09:46 ? HPV with Pap Test ? Date Ordered: ? 06/22/2010 ? Status: ?? Signed Out ?Date Complete: ? 06/24/2010 ? By: ??System Interface ? Date Reported: ? 06/24/2010 ? Interpretation ? RESULT: Negative for HPV types 16, 18, 31, 33, 35, 39, 45, 51, ??with ? dysplasia and some cervical cancers. ? Comments ? Document reviewed and electronically signed by: ? System Interface ? Report date: 06/24/2010 ? By the signature above, the attending physician certifies that he/she has ? personally conducted a gross and/or microscopic examination of the described ? specimens and rendered or confirmed the above diagnosis. ? End of Report ? [facility] 06/12/2010 06/15/2010 Gemma Zamora MD PATHOLOGY ORDERABLES [facility] [address] [place] [address] documented in this encounter Visit Diagnoses Not on filedocumented in this encounter Care Teams Oracle Applications Analyst Relationship Specialty Start Date End Date Gemma Zamora MD [address],[facility] [address] [place] [address] PCP - General 04/24/09 08/06/15 documented as of this encounter
--- OUTSIDE RECORDS SUMMARY | 2024-04-07 12:28 | XMS_ITS | Encounter Summary ---
Author Organization [facility] Address [address] [place] [address] Care Team Providers Care Hospice Case Manager Name Role Phone Gemma Zamora MD Primary Care Provider Encounter Details Date Type Department Care Team (Late st Contact Info) Description 12/05/2007 Results Only [facility] - Maple conversion [address] [place] [address] Gemma Zamora MD [address] [place] [address],[address] [address] Social History Tobacco Use Types Packs/Day Years [...] Date/Time Associated Diagnosis Comments SURGICAL PATHOLOGY Routine 12/05/2007 0:00 EDT documented in this encounter Results * SURGICAL PATHOLOGY (12/05/2007 0:00 EDT) Pathology Report: SURGICAL PATHOLOGY REPORT Reports generated via electronic interface contain original data; however they are lacking the format of the original report. Caution should be taken when reading/interpreti ng unformatted reports. Name: ? LINDA ALE ? Accession #: ? [id number] ? : ? 1985 (Age: 22) ??F ? Collect Date: ? 12/05/2007 ? Location: ? [facility] ? Receive Date: ? 12/06/2007 ? Provider: GEMMA ZAMORA MD Copy to: ? Final Pathologic Diagnosis: ? Cervix, biopsy: - Mucus and desquamated debris, insufficient for further diagnosis. ??See comment. Comment: ? The prior Pap test ([id number]) has been reviewed and the diagnosis of high grade squamous intraepithelial lesion is confirmed. ??Deeper levels of the current biopsy have been examined. ??(Dr. Luevano)/n Document reviewed and electronically signed by: John Mckenzie MD Report ??Date: 12/11/2007 17:38 By the signature above, the attending physician certifies that he/she has personally conducted a gross and/or microscopic examination of the described specimens and rendered or confirmed the above diagnosis. Specimen(s) Received: ? Not listed Clinical History: ? 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 Received in formalin labelled Alfonso and bx colpo is a 0.3 x 0.2 x 0.1 cm slightly firm white piece of tissue. ??Submitted intact in one cassette. ??(Kwame Barajas)/[facility] End of Report [facility] 12/05/2007 12/06/2007 14: 27 EDT Gemma Zamora MD PATHOLOGY ORDERABLES [facility] [address] [place] [address] documented in this encounter Visit Diagnoses Not on filedocumented in this encounter Care Teams Hospice Case Manager Relationship Specialty Start Date End Date Dimas-Gemma Varela MD [address],[facility] 3 [place] [address] PCP - General 04/24/09 08/06/15 documented as of this encounter
--- OUTSIDE RECORDS SUMMARY | 2024-04-07 12:28 | XMS_ITS | Encounter Summary ---
Author Organization [facility] Address [address] [place] [address] Care Team Providers Care Photogrammetric Stereo Compiler Name Role Phone Unavailable Primary Care Provider Unavailabl e Encounter Details Date Type Department Care Team (Late st Contact Info) Description 10/06/2007 9:59 EST - 10/06/2007 11:59 [facility] Hospital Encounter [facility] - Other [address] [place] [address] Gemma Zamora MD [address] [place] [address],[address] [address] Discharge Disposition: Home or Self Care Social [...]
--- OUTSIDE RECORDS SUMMARY | 2024-04-07 12:28 | XMS_ITS | Encounter Summary ---
Author Organization [facility] Address [address] [place] [address] Care Team Providers Care Gamma Operator Name Role Phone Unavailable Primary Care Provider Unavailabl e Encounter Details Date Type Department Care Team (Late st Contact Info) Description 04/22/2009 10:32 EDT - 04/22/2009 10:33 EDT Hospital Encounter [facility] - Other [address] [place] [address] Gemma Zamora MD [address] [place] [address],[address] [address] Discharge Disposition: Home-Health Care Svc Social History Tobacco Use Types Packs/Day Years Used Date Smoking Tobacco: Never Assessed Sex and Gender Information Value Date Recorded Sex Assigned at Not on file Gender Identity Female 06/22/2022 19:03 EDT Sexual Orientation Not on file documented as of this encounter Discharge Disposition Disposition Code Departure Means Destination Home-Health Care Svc documented in this encounter Plan of Treatment Not on file documented as of this encounter Visit Diagnoses Not on filedocumented in this encounter
== END 2024-04-07 16:18 ==
LOC: ER 12:27
DX: Z53.21 Procedure and treatment not carried out due to patient leaving prior to being seen by health care provider (principal)

== ENCOUNTER 2024-06-28 19:42 | Emergency (ER) | payer MEDICAID, SELFPAY ==
[2024-06-28 19:45] VITALS: BP 126/90; PULSE 120; RESP 15; TEMP 36.6; O2SAT 97
--- OUTSIDE RECORDS SUMMARY | 2024-06-28 19:51 | XMS_ITS | Encounter Summary ---
Author Organization [facility] Address [address] [place] [address] Care Team Providers Care Infant Babysitter Name Role Phone Gemma Zamora MD Primary Care Provider Encounter Details Date Type Department Care Team (Late st Contact Info) Description 06/12/2010 Results Only [facility] - [facility] ([facility]) [address] [place] [address] Gemma Zamora MD [address] [place] [address],[facility] 3 [place] [address] Social History Tobacco Use Types Packs/Day Years [...] ? ALE ALFONSO ? Accession #: ? [id number] ? : ? 1985 (Age: 24) ??F [...] significance (ASC-US). ? EDUCATIONAL NOTES/RECOMMENDATI ONS ? [facility] recommends following the 2006 Consensus Guidelines for [...] MD PATHOLOGY ORDERABLES [facility] [address] [place] [address] documented in this encounter Visit Diagnoses Not on filedocumented in this encounter Care Teams Infant Babysitter Relationship Specialty Start Date End Date Gemma Zamora MD [address],[facility] [address] [place] [address] PCP - General 04/24/09 08/06/15 documented as of this encounter
--- OUTSIDE RECORDS SUMMARY | 2024-06-28 19:51 | XMS_ITS | Referral Summary ---
Author Organization [facility] Address [address] [place] [address] Care Team Providers Care Second Mate Name Role Phone Unknown, Provider Primary Care Provider [phone] Allergies Active Allergy Reactions Criticality Noted Date [...] of Treatment Not on file Care Teams Second Mate Relationship Specialty Start Date End Date Unknown, Provider, PCP - General 08/07/15
--- OUTSIDE RECORDS SUMMARY | 2024-06-28 19:51 | XMS_ITS | Clinical Summary ---
Author Organization [facility] Address [address] [place] [address] Care Team Providers Care Commercial Drafter Name Role Phone Unknown, Provider Primary Care [...] 06/22/2022 1752 EDT Oxygen Saturation 100% 06/22/2022 1752 EDT Inhaled Oxygen Concentration - - Weight - - Height - - Body Mass Index - - Plan of Treatment Health Maintenance Due Date Last Done Comments Hepatitis C Screen 1985 Hepatitis B Vaccine (1 of 3 - 19+ 3-dose series) 07/23 COVID-19 Vaccine ( season) 2023 Care Teams Commercial Drafter Relationship Specialty Start Date End Date Unknown, Provider, PCP - General 08/07/15
--- OUTSIDE RECORDS SUMMARY | 2024-06-28 19:51 | XMS_ITS | Encounter Summary ---
Author Organization [facility] Address [address] [place] [address] Care Team Providers Care Nuclear Scientist Name Role Phone Unavailable Primary Care Provider Unavailabl e Encounter Details Date Type Department Care Team (Late st Contact Info) Description 04/22/2009 10:32 EDT - 04/22/2009 10:33 EDT Hospital Encounter [facility] - Other [address] [place] [address] Gemma Zamora MD [address] [place] [address],[address] [address] Discharge Disposition: Home-Health Care Svc Social History [...]
--- OUTSIDE RECORDS SUMMARY | 2024-06-28 19:51 | XMS_ITS | Encounter Summary ---
Author Organization [facility] Address [address] [place] [address] Care Team Providers Care Service Desk Director Name Role Phone Unknown, Provider Primary Care Provider [phone] Encounter Details Date Type Department Care Team (Late st Contact Info) Description 10/19/2017 Results Only [facility]- [facility] [phone] Gemma Zamora MD [address] [place] [address],[address] [address] Social History Tobacco Use Types [...] Name: ? ALFONSOALE ? Accession #: ? [id number] ? : ? 1985 (Age: 32) ??F [...] (ASCP) 10/20/2017 5:07 PM End of Report [facility] 10/19/2017 16:5 9 EST 10/20/2017 16:59 EST Gemma Zamora MD PATHOLOGY ORDERABLES [facility] [address] [place] [address] documented in this encounter Visit Diagnoses Not on filedocumented in this encounter Care Teams Service Desk Director Relationship Specialty Start Date End Date Unknown, Provider, PCP - General 08/07/15 documented as of this encounter
--- OUTSIDE RECORDS SUMMARY | 2024-06-28 19:51 | XMS_ITS | Encounter Summary ---
Author Organization [facility] Address [address] [place] [address] Care Team Providers Care Test Design Engineer Name Role Phone Gemma Zamora MD Primary Care Provider [phone] Encounter Details Date Type Department Care Team (Latest Contact Info) Description 07/31/2015 10:45 EST - 07/31/2015 23:59 EST Hospital Encounter [address] [address] Unknown, Provider, Discharge Disposition: Home or Self Care Social History Tobacco Use Types Packs/Day Years Used Date Smoking Tobacco: Never Assessed Sex and Gender Information Value Date Recorded Sex Assigned at Not on file Gender Identity Female 06/22/2022 19:03 EDT Sexual Orientation Not on file documented as of this encounter Discharge Disposition Disposition Code Departure Means Destination Home or Self Half-Way documented in this encounter Plan of Treatment Not on file documented as of this encounter Visit Diagnoses Not on filedocumented in this encounter Care Teams Test Design Engineer Relationship Specialty Start Date End Date Gemma Zamora MD [address] [place] [address],[facility] [address] [place] [address] PCP - General 04/24/09 08/06/15 documented as of this encounter
--- OUTSIDE RECORDS SUMMARY | 2024-06-28 19:51 | XMS_ITS | Encounter Summary ---
Author Organization [facility] Address [address] [place] [address] Care Team Providers Care Fabric Normalizer Name Role Phone Gemma Zamora MD Primary Care Provider Encounter Details Date Type Department Care Team (Late st Contact Info) Description 06/12/2010 10:52 EDT - 06/12/2010 10:53 EDT Hospital Encounter [facility] - Other [address] [place] [address] Gemma Zamora MD [address] ,[address] [phone] Discharge Disposition: Home or Self Care Social [...] on filedocumented in this encounter Care Teams Fabric Normalizer Relationship Specialty Start Date End Date Gemma Zamora MD [address] ,[address] [id number] PCP - General 04/24/09 08/06/15 documented as of this encounter
--- OUTSIDE RECORDS SUMMARY | 2024-06-28 19:51 | XMS_ITS | Encounter Summary ---
Author Organization [facility] Address [address] [place] [address] Care Team Providers Care Pool Servicer Name Role Phone Gemma Zamora MD Primary Care Provider Encounter Details Date Type Department Care Team (Late st Contact Info) Description 12/05/2007 Results Only [facility] - Maple conversion [address] [place] [address] Gemma Zamora MD [address] [place] [address],[address] [address] Social History Tobacco Use Types Packs/Day Years [...] ? LINDA ALE ? Accession #: ? [id number] ? : ? 1985 (Age: 22) ??F ? Collect Date: ? 12/05/2007 ? [facility]: ? [facility] ? Receive Date: ? 12/06/2007 ? Provider: GEMMA ZAMORA MD Copy to: ? Final Pathologic Diagnosis: ? Cervix, biopsy: - Mucus and desquamated debris, insufficient for further diagnosis. ??See comment. Comment: ? The prior Pap test ([id number]) has been reviewed and the diagnosis of [...] tissue. ??Submitted intact in one cassette. ??(Kwame Barajas)/[facility] End of Report JANETTE WALLIS 12/05/2007 12/06/2007 14: 27 EDT Gemma Zamora MD PATHOLOGY ORDERABLES [facility] [address] [place] [address] documented in this encounter Visit Diagnoses Not on filedocumented in this encounter Care Teams Pool Servicer Relationship Specialty Start Date End Date Dimas-Gemma Varela MD [address],[facility] 3 [place] [address] PCP - General 04/24/09 08/06/15 documented as of this encounter
--- OUTSIDE RECORDS SUMMARY | 2024-06-28 19:51 | XMS_ITS | Encounter Summary ---
Author Organization [facility] Address [address] [place] [address] Care Team Providers Care Testing Machine Operator Name Role Phone Unavailable Primary Care Provider Unavailabl e Encounter Details Date Type Department Care Team (Late st Contact Info) Description 03/27/2008 10:09 EDT - 03/27/2008 11:59 EDT Hospital Encounter [facility] - Other [address] [place] [address] Gemma Zamora MD [address] [place] [address],[address] [address] Discharge Disposition: Home or Self Care Social [...] ? ALE ALFONSO ? Accession #: ? [id number] ? : ? 1985 (Age: 23) ??F [...] MD PATHOLOGY ORDERABLES [facility] [address] [place] [address] documented in this encounter Visit Diagnoses Not on filedocumented in this encounter
--- OUTSIDE RECORDS SUMMARY | 2024-06-28 19:51 | XMS_ITS | Encounter Summary ---
Author Organization [facility] Address [address] [place] [address] Care Team Providers Care Design Sales Consultant Name Role Phone Unknown, Provider Primary Care Provider [phone] Encounter Details Date Type Department Care Team (Latest Contact Info) Description 10/19/2017 10:03 EST - 10/19/2017 23:59 EST Hospital Encounter [address] [address] Unknown, Provider, Discharge Disposition: Home or Self Care Social History Tobacco Use Types Packs/Day Years Used Date Smoking Tobacco: Never Assessed Sex and Gender Information Value Date Recorded Sex Assigned at Not on file Gender Identity Female 06/22/2022 19:03 EDT Sexual Orientation Not on file documented as of this encounter Discharge Disposition Disposition Code Departure Means Destination Home or Self Senior Care documented in this encounter Plan of Treatment Not on file documented as of this encounter Visit Diagnoses Not on filedocumented in this encounter Care Teams Design Sales Consultant Relationship Specialty Start Date End Date Unknown, Provider, PCP - General 08/07/15 documented as of this encounter
--- OUTSIDE RECORDS SUMMARY | 2024-06-28 19:51 | XMS_ITS | Encounter Summary ---
Author Organization [facility] Address [address] [place] [address] Care Team Providers Care Dungeon Master Name Role Phone Unknown, Provider Primary Care Provider Reason for Visit * Reason Comments Suicidal pt reports worsening anxiety since november, pt states i just about quit my job today and can't deal with my anxiety anymore. Pt endorses SI, denies plan. Anxiety Encounter Details Date Type Department Care Team (Late st Contact Info) Description 06/22/2022 17:58 EDT - 06/23/2022 0:06 EDT Emergency [facility] Emergency Department [address] [place], [place] [id number] Africa Rodriguez, [address] [place] [address] Isaias Torres MD [address] [place] [address] Anxiety (Primary Dx) Discharge Disposition: [...] of self-harm, or harm of others, call [phone] or return to the emergency department. documented in this encounter Discharge Disposition Disposition Code Departure Means Destination Home or Self Senior Care documented in this encounter ED Notes * Kate Deng RN - 06/22/20227 EDT Patient cooperative with discharge plan and is changing and has agreed to wait in the waiting room for her ride * Brittnee Danielson - 06/22/2022 5087 EDT Pt given own clothes to change into and is being discharged. * Isaias Torres MD - 06/22/2022 1185 EDT Patient signed out to me at [...] anxiety and suicidal ideation. Patient seen by [facility] who recommends she be seen by psychiatry. [...] a suicide attempt and was admitted to [facility] at that time. Patient cannot remember what [...] 22 documented in this encounter Care Teams Dungeon Master Relationship Specialty Start Date End Date Unknown, Provider, PCP - General 08/07/15 documented as of this encounter
--- OUTSIDE RECORDS SUMMARY | 2024-06-28 19:51 | XMS_ITS | Encounter Summary ---
Author Organization [facility] Address [address] [place] [address] Care Team Providers Care Alignment Mechanic Name Role Phone Unknown, Provider Primary Care Provider [phone] Encounter Details Date Type Department Care Team [...] on filedocumented in this encounter Care Teams Alignment Mechanic Relationship Specialty Start Date End Date Unknown, Provider, PCP - General 08/07/15 documented as of this encounter
--- OUTSIDE RECORDS SUMMARY | 2024-06-28 19:52 | XMS_ITS | Encounter Summary ---
Author Organization [facility] Address [address] [place] [address] Care Team Providers Care Pitch Gatherer Name Role Phone Unavailable Primary Care Provider Unavailabl e Encounter Details Date Type Department Care Team (Late st Contact Info) Description 12/05/2007 16:04 EDT Hospital Encounter [facility] - Other [address] [place] [address] Gemma Zamora MD [address] [place] [address],[address] [address] Discharge Disposition: Home or Self Care [...] [facility]. [facility] Report Status Final [id number] [facility] 03/27/2008 8:21 EDT 04/02/2008 8:21 EDT Gemma Zamora MD MICROBIOLOGY - GENER AL ORDERABLES [facility] [address] [place] [address] * CYTOPATHOLOGY (03/27/2008 0:00 EDT) Pathology Report: CYTOPATHOLOGY REPORT Reports generated via electronic interface contain original data; however they are lacking the format of the original report. Caution should be taken when reading/interpreti ng unformatted reports. Name: ? ALE ALFONSO ? Accession #: ? [id number] : ? 1985 (Age: 22) ??F ?Collect Date: ? 03/27/2008 Location: ? [facility] ? Receive Date: ? 04/01/2008 Provider: ?GEMMA ZAMORA MD Copy to: ? Specimen/Source: ?ThinPrep Pap Test, Cervix/Endocervix, processed on [employer] ThinPrep Imaging System, with manual evaluation Last [...] MD PATHOLOGY ORDERABLES [facility] [address] [place] [address] * SURGICAL PATHOLOGY (03/27/2008 0:00 EDT) Pathology Report: SURGICAL PATHOLOGY REPORT Reports generated via electronic interface contain original data; however they are lacking the format of the original report. Caution should be taken when reading/interpreti ng unformatted reports. Name: ? ALE ALFONSO ? Accession #: ? [id number] ? : ? 1985 (Age: 22) ??F [...] and concurs with the above diagnosis. ??(Dr. Hill)/[facility] Document reviewed and electronically signed by: Tyler [...] cm. ??Submitted entirely in one cassette. (Dr. Matt)/[facility] End of Report [facility] 03/27/2008 03/28/2008 16: 24 EDT Gemma Zamora MD PATHOLOGY ORDERABLES Performing Organization Address City/State/[facility] Co de Phone Number [facility] [address] [place] [address] * SURGICAL PATHOLOGY (03/27/2008 0:00 EDT) Pathology Report: SURGICAL PATHOLOGY REPORT ? Reports generated via electronic interface contain original data; ? however they are lacking the format of the original report. ? Caution should be taken when reading/interpreti ng unformatted reports. ? Name: ? ALFONSO, ALE ? Accession #: ? [id number] ? : ? 1985 (Age: 22) ??F [...] and concurs with the above diagnosis. ??(Dr. Hill)/[facility] ? Document reviewed and electronically signed by: [...] MD PATHOLOGY ORDERABLES [facility] [address] [place] [address] * CYTOPATHOLOGY (03/27/2008 0:00 EDT) Pathology Report: CYTOPATHOLOGY REPORT ? Reports generated via electronic interface contain original data; ? however they are lacking the format of the original report. ? Caution should be taken when reading/interpreti ng unformatted reports. ? Name: ? ALE ALFONSO ? Accession #: ? [id number] ? : ? 1985 (Age: 22) ??F ?Collect Date: ? 03/27/2008 ? Location: ? [facility] ? Receive Date: ? 04/01/2008 ? Provider: ?GEMMA P YOUNG-DOHERTY MD ? Copy to: ? Specimen/Source: ?ThinPrep Pap Test, Cervix/Endocervix, processed on [employer] ThinPrep Imaging System, with manual evaluation ? [...] 04/01/2008 Gemma Zamora MD PATHOLOGY ORDERABLES [facility] [address] [place] [address] documented in this encounter Visit Diagnoses Not on filedocumented in this encounter
--- OUTSIDE RECORDS SUMMARY | 2024-06-28 19:52 | XMS_ITS | Encounter Summary ---
Author Organization [facility] Address [address] [place] [address] Care Team Providers Care Bird Tender Name Role Phone Unavailable Primary Care Provider Unavailabl e Encounter Details Date Type Department Care Team (Late st Contact Info) Description 10/06/2007 9:59 EST - 10/06/2007 11:[address] [facility] Hospital Encounter [facility] - Other [address] [place] [address] Gemma Zamora MD [address] [place] [address],[address] [address] Discharge Disposition: Home or Self Care Social [...]
--- OUTSIDE RECORDS SUMMARY | 2024-06-28 19:52 | XMS_ITS | Encounter Summary ---
Author Organization [facility] Address [address] [place] [address] Care Team Providers Care Blister Packaging Machine Operator Name Role Phone Gemma Zamora MD Primary Care Provider Encounter Details Date Type Department Care Team (Late st Contact Info) Description 10/06/2007 Results Only [facility] [address] [place] [address] Gemma Zamora MD [address] [place] [address],[address] [address] Social History Tobacco Use Types Packs/Day Years [...] ? LINDA ALE ? Accession #: ? [id number] : ? 1985 (Age: 22) ??F ?Collect Date: ? 10/06/2007 Location: ? [facility] ? Receive Date: ? 10/10/2007 Provider: ?GEMMA ZAMORA MD Copy to: ? Specimen/Source: ?ThinPrep Pap Test, Cervix/Endocervix, processed on [employer] ThinPrep Imaging System, with manual evaluation Last Menstrual Period: ? 09/01/07 Other: ? HPVA - HPV testing requested if ASC-US on the current ThinPrep Pap test. ? SPECIMEN ADEQUACY ? Satisfactory for Evaluation - transformation zone component present GENERAL CATEGORIZATION ? Epithelial Cell Abnormality INTERPRETATION ? Squamous Cell Abnormality - High grade squamous intraepithelial lesion (HSIL). EDUCATIONAL NOTES/RECOMMENDATI ONS ? FORMERLY [facility] recommends following the 2006 Consensus Guidelines for the Management of Women with Abnormal Cervical Cancer Screening Tests (JLGTD, 2007;11(4):201-222 ). ??Consensus guidelines are available online at www.ASCCP.org. ? Document reviewed and electronically signed by: ? FERNY JEFFERY MD ? Report Date: ??10/16/2007 11:59 End of Report [facility] 10/06/2007 10/10/2007 Gemma Zamora MD PATHOLOGY ORDERABLES [facility] [address] [place] [address] documented in this encounter Visit Diagnoses Not on filedocumented in this encounter Care Teams Blister Packaging Machine Operator Relationship Specialty Start Date End Date Gemma Zamora MD [address] [place] [address] PCP - General 04/24/09 08/06/15 documented as of this encounter
[2024-06-28 20:12] LABS: Bilirubin Negative (Negative); Blood Negative (Negative); Clarity Clear (Clear); Glucose Negative (Negative); Ketones Negative (Negative); Leukocyte Esterase Negative (Negative); Nitrite Negative (Negative); Specific Gravity <= 1.005 (1.005-1.025); Urobilinogen 0.2 mg/dL (Up to 0.2)
--- NOTE | 2024-06-28 20:15 | DI.CT_ITS ---
Exam(s) CT ABDOMEN PELVIS W EXAM: CT ABDOMEN PELVIS W CLINICAL HISTORY: abdominal pain, acute, nonlocalized. TECHNIQUE: Imaging Protocol: Axial computed tomography images with coronal and sagittal reformatted images were created and reviewed CONTRAST MATERIAL: Intravenous: Omnipaque 350 Contrast volume:100 ml Oral: yes / no COMPARISON: CT CT ABDOMEN PELVIS W from 03/20/2023 FINDINGS: ABDOMEN and PELVIS: Lung Bases: No acute findings. Liver: Normal density. No suspicious mass. Gallbladder and biliary tract: Status post cholecystectomy. No biliary dilation. Pancreas: Normal density. No abnormal calcifications or inflammatory process. No evidence of mass. Spleen: Normal. Kidneys: Normal size, contour and axis. No radiodense stones. No obstructive uropathy. No suspicious masses seen. Adrenal glands: No masses seen. Vasculature: Abdominal aorta non-dilated. Soft tissues: Unremarkable. Bladder: Nearly empty. No gross wall thickening. No calculi.No focal mass. Bowel: No obstruction. No bowel wall thickening. Mild diverticulosis. Very little fecal material. Status post appendectomy. Peritoneal cavity: No ascites. No focal collection. No mesenteric inflammatory response. Bones: Right L5 pars defect again noted. No spondylolisthesis. Reproductive organs: Unremarkable. Lymph nodes: No pathologically enlarged lymph nodes. IMPRESSION:: No acute abnormality in the abdomen or pelvis. RADIATION DOSE DELIVERED: 692.14mGy.cm Total DLP DATA REPOSITORY: All CT scans at this facility are submitted to the National Radiology Data Registry (NRDR) Dose Index Registry (DIR) with the [employer] (ACR). RADIATION OPTIMIZATION: All CT scans at this facility use at least one of these dose optimization te chniques: automated exposure control; mA and/or kV adjustment per patient size (includes targeted exa ms where dose is matched to clinical indication); or iterative reconstruction.
--- NOTE | 2024-06-28 20:27 | ED.GENADUL_ITS ---
Discharge Plan Disposition Patient Disposition: Home Discharge Details Chief Complaint: HEATER ROOM HELPER Clinical Impression: Pelvic pain, Abdominal pain Primary Care Provider: None,None ED Provider: Patel Feldman Home Meds and New Rx's Prescriptions: No Action ibuprofen-acetaminophen [Advil Dual Action] 125-250 mg Tablet 1 tab PO Q8H PRN Midol 500-25 mg Tablet 1 tab PO Q4H PRN multivitamin Tablet 1 tab PO DAILY acetaminophen 500 mg Tablet 1,000 mg PO PRN PRN ibuprofen [Advil] 200 mg tablet 400 mg PO ONCE naproxen [Naprosyn] 500 mg tablet 500 mg PO BID PRN albuterol sulfate 90 mcg/actuation HFA aerosol inhaler 2 puff INHALATION PRN PRN Patient Comments: INHALE 2 PUFFS BY MOUTH EVERY 4 HOURS NEEDED Discharge Instructions Instructions: Pelvic Pain (DC), Abdominal Pain, Adult ED Additional Instructions: You were seen in the emergency department for abdominal pain, pelvic pain, and back pain. We performed labs, urine test, and CAT scan of your abdomen and pelvis that were all unremarkable. Your test was negative meaning you are not . Your gonorrhea and chlamydia and vaginosis swabs are still pending but they will take a day or 2 to result. The exact cause your symptoms is not known. Follow-up with your primary care doctor and HEATER ROOM HELPER. If you have worsening symptoms or if you have any other concerns please return to the emergency department. Referrals: Bradley Sparks [ [facility] STAFF PHYSICIAN] - 1 week Ajit Lagunas [ NON-[facility] STAFF PHYSICIAN] - 1 week HPI General Mode of arrival: ambulatory . Date/Time Provider Initiated Documentation: 06/28/24 19:49 . Limitations to Documentation: no limitations . Information obtained by: patient . HPI Narrative: 38-year-old female presents with back and pelvic pain. Says she has been dealing with this to different severity over the last 2 months. Says she has had extensive workup at [facility] including CT and ultrasound of the pelvis without a clear cause for her symptoms. She has been treated for bacterial vaginosis twice with Flagyl. Says she has had some Davina infections and has needed fluconazole. Not endorsing significant discharge now. Finished her period a few days ago and has not had vaginal bleeding since. Having the right lower back pain and right pelvic pain stable. Some nausea but no vomiting. No diarrhea or constipation. Says that she kept going to [facility] but they kept telling her that she had anxiety after the workup and did not want to go back. She sees her new primary care doctor tomorrow. Is supposed to see HEATER ROOM HELPER in July. Has seen a HEATER ROOM HELPER prior and says she has PCOS but she says she is intolerant of all control methods. Related Data Home Medications ?Medication ?Instructions ?Recorded ?Confirmed ibuprofen 125 mg-acetaminophen 250 1 tab PO Q8H PRN 07/19/21 04/07/24 mg tablet (Advil Dual Action) acetaminophen-pamabrom 500 mg-25 1 tab PO Q4H PRN 01/10/22 04/07/24 mg tablet (Midol) albuterol sulfate 90 mcg/actuation 2 puff inhalation PRN PRN 01/15/23 04/07/24 aerosol inhaler acetaminophen 500 mg tablet 1,000 mg PO PRN PRN 01/18/23 04/07/24 multivitamin 1 tab PO DAILY 01/18/23 04/07/24 ibuprofen 200 mg tablet (Advil) 400 mg PO ONCE 04/07/24 04/07/24 naproxen 500 mg tablet (Naprosyn) 500 mg PO BID PRN 04/07/24 04/07/24 Allergies Allergy/AdvReac Type Severity Reaction Status Date / Time buspirone HCl (From BuSpar) AdvReac Intermediate blackouts Unverified 04/07/24 12:24 hydroxyzine (From Vistaril) AdvReac Intermediate blackouts Unverified 04/07/24 12:24 sulfamethoxazole (From AdvReac Intermediate uncontrollable Unverified 04/07/24 12:24 Bactrim) vomiting trimethoprim (From Bactrim) AdvReac Intermediate uncontrollable Unverified 04/07/24 12:24 vomiting cyclobenzaprine HCl (From AdvReac Mild loss of Unverified 04/07/24 12:24 Flexeril) inhibition gabapentin (From Neurontin) AdvReac Mild muscle Unverified 04/07/24 12:24 spasms haloperidol (From Haldol) AdvReac Mild Other (See Unverified 04/07/24 12:24 Comment) methocarbamol (From Robaxin) AdvReac Mild Other (See Unverified 04/07/24 12:24 Comment) paroxetine HCl (From Paxil) AdvReac Mild Itching Unverified 04/07/24 12:24 benztropine (From Cogentin) AdvReac Other (See Unverified 04/07/24 12:24 Comment) General Stated Complaint: HEATER ROOM HELPER DEJUAN: 3 Review of Systems Constitutional Constitutional: Denies chills, Denies fever(s) and Denies headache(s) Eyes Eyes: Denies change in vision ENT Ears, Nose, Mouth, and Throat: Denies headache(s) and Denies odynophagia Cardiovascular Cardiovascular: Denies chest pain and Denies dyspnea Respiratory Respiratory: Denies dyspnea Gastrointestinal Gastrointestinal: Reports abdominal pain, Denies diarrhea, Reports nausea, Denies odynophagia and Denies vomiting Genitourinary Genitourinary: Reports dysmenorrhea, Reports dysuria, Reports pelvic pain and Reports urinary urgency Musculoskeletal Musculoskeletal: Denies myalgias Comments: has some right lower back pain Integumentary/Breasts Skin/Breast: Denies changing lesions Neurologic Neurologic: Denies behavioral changes and Denies headache(s) Psychiatric Psychiatric: Denies behavioral changes Endocrine Endocrine: Denies heat intolerance Hematologic/Lymphatic Hematologic/Lymphatic: Denies lymphadenopathy Exam Const General: cooperative Nutritional Appearance: average body habitus Orientation: alert, awake and oriented x3 HENMT Head: normal to inspection Ears: external ears normal Mouth: moist mucous membranes Eyes Pupils: PERRL EOM: EOM intact bilaterally and No nystagmus Neck Neck: full ROM and no tracheal deviation Chest Chest: normal inspection of the chest Resp Auscultation: clear to auscultation bilaterally Cardio Rate: regular rate Rhythm: regular rhythm GI Inspection: normal to inspection Palpation: soft, no guarding, not rigid and nontender Back/Spine/Pelvis Back: No no CVA tenderness Thoracic/Lumbar Spine: thoracic and lumbar spine normal to inspection Skin General skin exam: no rashes or lesions noted Neuro General: patient alert, patient awake and patient oriented x3 Cranial Nerves: CN's II-XI intact bilaterally, PERRL and no nystagmus Cognition: normal cognition Motor: muscle tone normal throughout and strength 5/5 throughout Sensory Exam: no sensory deficits noted Extrem General: normal to inspection Course Vital Signs Vital signs: Vital Signs Temperature 36.6 C 06/28/24 19:45 Pulse 120 H 06/28/24 19:45 Respiratory Rate 15 06/28/24 19:45 Blood Pressure 126/90 06/28/24 19:45 Pulse Oximetry 97 06/28/24 19:45 Temperature 36.6 C 06/28/24 19:45 Pulse 120 H 06/28/24 19:45 Respiratory Rate 15 06/28/24 19:45 Respiratory Effort Normal 06/28/24 19:49 Blood Pressure 126/90 06/28/24 19:45 Blood Pressure Position Sitting 06/28/24 19:45 Pulse Oximetry 97 06/28/24 19:45 Oxygen Delivery Method Room Air 06/28/24 19:45 Oxygen Flow Rate 0 06/28/24 19:45 Pain Level 10 06/28/24 19:45 Lab/Test Results Lab/Test Results: Laboratory Tests Range/Units 06/28/24 20:04 Urine Color (Yellow) Yellow Urine Clarity (Clear) Clear Urine pH (5-8) 6.0 Ur Specific [place] (1.005-1.025) <= 1.005 Urine Protein (Neg-Trace) mg/dL Negative Urine Ketones (Negative) mg/dL Negative Urine Blood (Negative) Negative Urine Nitrite (Negative) Negative Urine Bilirubin (Negative) Negative Urine Urobilinogen (Up to 0.2) mg/dL 0.2 Ur Leukocyte Esterase (Negative) Negative Urine Glucose (Negative) mg/dL Negative POC- Test(urine) Negative Medical Decision Making 38-year-old female presents with back and pelvic pain. Unclear cause of her symptoms. May represent simple musculoskeletal back pain and sounds like she has had an extensive workup at [facility]. She supposed be seeing her primary tomorrow and has seen HEATER ROOM HELPER and is supposed to see them again in July according to her reports. Will check urinalysis to look for signs of UTI. Will check for . No discharge presently but will send gonorrhea and chlamydia swab as well as vaginosis swab at her request. Will get CT abdomen pelvis to lower out intra-abdominal abscess or obstruction. Pain is improving. Will await initial testing and reevaluate. 06/28/24 at 1011pm Labs and imaging unremarkable. Gonorrhea and chlamydia and vaginosis swab still pending. She can follow-up with her primary. Has appointment tomorrow. Will discharge with return precautions. Medical Records Medical records reviewed: Yes I reviewed the patient's medical records. Imaging Data Radiologic Study: Attestation: I personally reviewed and interpreted this imaging study as follows: Imaging: CT Scan (abd and pelvis) Radiologist's impression: no acute findings Lab Data Lab results reviewed: Yes I reviewed the patient's lab results. Quality:SDOH Health Related Social Needs: No Data to Display PFSH All Active Problems (Updated 06/28/24 @ 22:17 by Patel Feldman MD) Abdominal pain (Acute) Pelvic pain (Acute) ADHD (Chronic) Asthma (Chronic) Dental infection (Acute) PCOS (polycystic ovarian syndrome) (Chronic) Surgical History S/P cholecystectomy S/P appendectomy Social History Smoking/Tobacco Use Status: Current every day Tobacco Type: cigarettes and e- cigarettes Smoking risk assessment performed?: Yes Alcohol Intake: current Alcohol Intake frequency: holidays/special occasions only Drug use: Daily Substance use type: marijuana Do you feel safe at home: Yes Do you feel safe in your relationship?: Yes
[2024-06-28 20:42] LABS: Abs Immature Grans 0.04 10^3/uL (0.0-0.06); Absolute Basophil Count 0.04 10^3/uL (0.0-0.2); Absolute Lymphocyte Count 1.84 10^3/uL (1.2-3.4); Absolute Monocyte Count 0.39 10^3/uL (0.1-0.8); Absolute Neutrophil Count 7.56 10^3/uL (1.2-6.7); Basophils % 0.4 %; HCT 46.5 % (36.0-46.0); HGB 15.6 g/dL (11.2-15.7); Immature Grans % 0.4 %; Lymphocytes % 18.6 %; MCH 29.4 pg (27.0-33.0); MCHC 33.5 % (32.0-36.0); MCV 88 fL (80-95); Neutrophils % 76.6 %; Platelet Count 346 10^3/uL (130-400); RDW 12.2 % (11.7-14.6); WBC 9.87 10^3/uL (4.4-10.8)
[2024-06-28] MEDS: Omnipaque 350 MG/ML 100 ML BTL IJ (20:54)
[2024-06-28] MEDS: Normal Saline - Diluent 50 ML VIAL IJ (20:56)
[2024-06-28 20:57] LABS: Lipase 31 U/L (16-77)
[2024-06-28 20:59] LABS: ALT 87 U/L (14-59); AST 42 U/L (15-37); Albumin 4.3 g/dL (3.4-5.0); Alkaline Phosphatase 99 U/L (46-116); Anion Gap 11.8 mmol/L (3-11); BUN 11 mg/dL (7-18); Bilirubin, Total 0.44 mg/dL (0.2-1.0); CO2 26.2 mmol/L (21.0-32.0); CREATININE 1.2 mg/dL (0.55-1.02); Calcium 10.1 mg/dL (8.5-10.1); Chloride 101 mmol/L (98-107); Estimated GFR 59.05 (mL/min/1.73m2); Glucose 95 mg/dL (74-106); Magnesium 2.2 mg/dL (1.8-2.4); Potassium 3.7 mmol/L (3.5-5.1); Sodium 139 mmol/L (136-145); Total Protein 9.2 g/dL (6.4-8.2)
--- NOTE | 2024-06-28 21:44 | DI.VRAD_ITS ---
PROCEDURE INFORMATION: Exam: CT Abdomen And Pelvis With Contrast Exam date and time: 06/28/2024 8:58 PM Age: 38 years old Clinical indication: Other: Abdominal pain, acute, nonlocalized TECHNIQUE: Imaging protocol: Computed tomography of the abdomen and pelvis with contrast. Contrast material: OMNIPAQUE; Contrast volume: 100 ml; Contrast route: INTRAVENOUS (IV); COMPARISON: CT ABDOMEN PELVIS W 03/20/2023 7:52 PM FINDINGS: Liver: Fatty liver with no mass lesions. Gallbladder and biliary ducts: Cholecystectomy. No significant biliary dilation or radiopaque stones in the biliary tree. Pancreas: No ductal dilation. No mass . Spleen: No splenomegaly or suspicious lesions. Adrenal glands: No suspicious mass. Kidneys and ureters: No hydronephrosis. No masses. Stomach and bowel: Submucosal fat deposition in the colon, likely habitus and or diet related. Scattered colonic diverticula without inflammation. No focal pathology in the small bowel. Appendix: Appendectomy. Intraperitoneal space: No free air. No significant fluid collection. Vasculature: No abdominal aortic aneurysm. Lymph nodes: No significantly enlarged lymph nodes. Urinary bladder: No gross wall thickening. Reproductive: Unremarkable as visualized. Bones/joints: Right L5 pars defect without listhesis. No acute fracture or subluxation. Soft tissues: No suspicious lesions. IMPRESSION: 1. No acute findings. 2. Incidental findings as described. Dictated and Authenticated by: Emelina Villarreal MD. Ordering:LA Sweeney MD
[2024-07-02 12:05] LABS: Chlamydia Result Negative (Negative); GC Result Negative (Negative)
== END 2024-06-28 22:26 | disposition home or self-care (01) ==
PROVIDERS: Emergency Provider Student in an Organized Health Care Education/Training Program
DX: R10.2 Pelvic and perineal pain (principal); R30.0 Dysuria; F17.210 Nicotine dependence, cigarettes, uncomplicated; F17.290 Nicotine dependence, other tobacco product, uncomplicated; Z90.49 Acquired absence of other specified parts of digestive tract; Z90.710 Acquired absence of both cervix and uterus
CPT/HCPCS: 80053; 81025; 83690; 87491; 87591; 99285; 74177; 81003; 83735; 85025; 87480; 87510; 87660; 99284; J3490

== ENCOUNTER 2024-07-01 19:55 | Emergency (ER) | payer MEDICAID, SELFPAY ==
[2024-07-01 19:57] VITALS: BP 134/80; PULSE 89; RESP 16; TEMP 36.4; O2SAT 99
--- NOTE | 2024-07-01 20:20 | ED.GENADUL_ITS ---
Discharge Plan Discharge Details Chief Complaint: Urinary Primary Care Provider: None,None ED Provider: Orquidea Celaya Home Meds and New Rx's Prescriptions: No Action ibuprofen-acetaminophen [Advil Dual Action] 125-250 mg Tablet 1 tab PO Q8H PRN Midol 500-25 mg Tablet 1 tab PO Q4H PRN acetaminophen 500 mg Tablet 1,000 mg PO PRN PRN ibuprofen [Advil] 200 mg tablet 400 mg PO ONCE naproxen [Naprosyn] 500 mg tablet 500 mg PO BID PRN albuterol sulfate 90 mcg/actuation HFA aerosol inhaler 2 puff INHALATION PRN PRN Patient Comments: INHALE 2 PUFFS BY MOUTH EVERY 4 HOURS NEEDED HPI General Date/Time Provider Initiated Documentation: 07/01/24 19:58 . HPI Narrative: Elvia is a 38-year-old female who presents to the emergency department today for evaluation of chronic right-sided lower abdominal pain. She reports that pain started in March, has been worked up extensively at [facility] (has seen pattern changer and multiple ED visits) and here at [facility]. She has been treated with flagyl multiple times; was evaluated on 06/28/[address] Feldman and prescribed flagyl, which she did not tack picker from the pharmacy. She saw her PCP Ajit Lagunas on 06/29/2024, prescribed ciprofloxacin p.o. She has taken a couple of doses and reports she is not feeling better, says she has been unable to eat for the last couple of days and having nausea and diarrhea (mucusy yellow). History was limited and physical exam deferred due to patient's difficulty answering questions due to anxiety and crying. She was very upset about previous visits with providers regarding this issue, reporting that they attributed her symptoms due to psychiatric cause. Physical exam limited; however pt is alert and oriented. Normal gait. Easy work of breathing, able to speak in complete sentences. She is emotionally distraught, crying throughout exam (+tears). She left in the middle of exam, stating that she did not want to stay in the ED for workup. I did offer patient multiple options for alleviation of symptoms, including changing PO medications to intravaginal to avoid GI effects. She said she does not use tampons and will not consider this option. Also offering symptom management for nausea/decreased appetite. She declined this as well, saying that Turbogen did not work for her. I did review previous ED visits, including most recent visit on 06/28/2024. She has had stable right lower back pain radiating around to her right pelvic area for the last 2 months, as well as nausea with no vomiting. UA was performed at that time, negative for UTI. BV positive. Chlamydia/gonorrhea still pending. Previous ED visits at [facility] included ultrasound and CT scan. I did review PCP visit from 06/29/2024, a referral for behavioral health, psychologist, and gynecology was made at that time. A referral to [facility] was also made for help with housing issues. Unclear etiology of symptoms. As patient did not want to be evaluated in ED today and appears stable with little change to chronic symptoms, recommend follow-up with PCP for further evaluation/management. She was offered multiple times opportunity to be evaluated in the emergency department, is welcome to return at any time. Related Data Home Medications ?Medication ?Instructions ?Recorded ?Confirmed ibuprofen 125 mg-acetaminophen 250 1 tab PO Q8H PRN 07/19/21 07/01/24 mg tablet (Advil Dual Action) acetaminophen-pamabrom 500 mg-25 1 tab PO Q4H PRN 01/10/22 07/01/24 mg tablet (Midol) albuterol sulfate 90 mcg/actuation 2 puff inhalation PRN PRN 01/15/23 07/01/24 aerosol inhaler acetaminophen 500 mg tablet 1,000 mg PO PRN PRN 01/18/23 07/01/24 ibuprofen 200 mg tablet (Advil) 400 mg PO ONCE 04/07/24 07/01/24 naproxen 500 mg tablet (Naprosyn) 500 mg PO BID PRN 04/07/24 07/01/24 Allergies Allergy/AdvReac Type Severity Reaction Status Date / Time buspirone HCl (From BuSpar) AdvReac Intermediate blackouts Verified 07/01/24 20:23 hydroxyzine (From Vistaril) AdvReac Intermediate blackouts Verified 07/01/24 20:23 sulfamethoxazole (From AdvReac Intermediate uncontrollable Verified 07/01/24 20:23 Bactrim) vomiting trimethoprim (From Bactrim) AdvReac Intermediate uncontrollable Verified 07/01/24 20:23 vomiting cyclobenzaprine HCl (From AdvReac Mild loss of Verified 07/01/24 20:23 Flexeril) inhibition gabapentin (From Neurontin) AdvReac Mild muscle Verified 07/01/24 20:23 spasms haloperidol (From Haldol) AdvReac Mild Other (See Verified 07/01/24 20:23 Comment) methocarbamol (From Robaxin) AdvReac Mild Other (See Verified 07/01/24 20:23 Comment) paroxetine HCl (From Paxil) AdvReac Mild Itching Verified 07/01/24 20:23 benztropine (From Cogentin) AdvReac Other (See Verified 07/01/24 20:23 Comment) General Stated Complaint: Urinary DEJUAN: 3 Review of Systems Narrative: see HPI Exam Const General: healthy appearing, well developed, anxious and well hydrated Nutritional Appearance: average body habitus Resp Effort & Inspection: normal respiratory effort and able to speak in complete sentences Extrem General: normal gait Psych Speech and Movement: pressured speech Mood: anxious mood and labile mood Affect: anxious affect and hostile Attitude: belligerent and refuses to answer Thought Process: tangential Course Vital Signs Vital signs: Vital Signs Temperature 36.4 C 07/01/24 19:57 Pulse 89 07/01/24 19:57 Respiratory Rate 16 07/01/24 19:57 Blood Pressure 134/80 07/01/24 19:57 Pulse Oximetry 99 07/01/24 19:57 Temperature 36.4 C 07/01/24 19:57 Pulse 89 07/01/24 19:57 Respiratory Rate 16 07/01/24 19:57 Blood Pressure 134/80 07/01/24 19:57 Pulse Oximetry 99 07/01/24 19:57 Oxygen Delivery Method Room Air 07/01/24 19:57 Oxygen Flow Rate 0 07/01/24 19:57 Pain Level 10 07/01/24 19:57 Medical Decision Making Quality:SDOH Health Related Social Needs: No Data to Display PFSH All Active Problems (Updated 06/28/24 @ 22:17 by Patel Feldman MD) Abdominal pain (Acute) Pelvic pain (Acute) ADHD (Chronic) Asthma (Chronic) Dental infection (Acute) PCOS (polycystic ovarian syndrome) (Chronic) Surgical History S/P cholecystectomy S/P appendectomy Social History Smoking/Tobacco Use Status: Current every day Tobacco Type: cigarettes and e- cigarettes Smoking risk assessment performed?: Yes Alcohol Intake: current Alcohol Intake frequency: holidays/special occasions only Drug use: Daily Substance use type: marijuana Do you feel safe at home: Yes Do you feel safe in your relationship?: Yes
--- OUTSIDE RECORDS SUMMARY | 2024-07-01 20:30 | XMS_ITS | Encounter Summary ---
Author Organization [facility] Address [address] [place] [address] Care Team Providers Care Wheel Mill Operator Name Role Phone Unknown, Provider Primary Care Provider Encounter Details Date Type Department Care Team (Latest Contact Info) Description 10/19/2017 10:03 EST - 10/19/2017 23:59 EST Hospital Encounter [address] [address] Unknown, Provider, Discharge Disposition: Home or Self Care Social History Tobacco Use Types Packs/Day Years Used Date Smoking Tobacco: Never Assessed Sex and Gender Information Value Date Recorded Sex Assigned at Not on file Gender Identity Female 06/22/2022 19:03 EDT Sexual Orientation Not on file documented as of this encounter Discharge Disposition Disposition Code Departure Means Destination Home or Self Detention documented in this encounter Plan of Treatment Not on file documented as of this encounter Visit Diagnoses Not on filedocumented in this encounter Care Teams Wheel Mill Operator Relationship Specialty Start Date End Date Unknown, Provider, PCP - General 08/07/15 documented as of this encounter
--- OUTSIDE RECORDS SUMMARY | 2024-07-01 20:30 | XMS_ITS | Encounter Summary ---
Author Organization [facility] Address [address] [place] [address] Care Team Providers Care Concrete Pouring Supervisor Name Role Phone Unavailable Primary Care Provider Unavailabl e Encounter Details Date Type Department Care Team (Late st Contact Info) Description 10/06/2007 9:59 EST - 10/06/2007 11:59 [facility] Hospital Encounter [facility] - Other [address] [place] [address] Gemma Zamora MD [address] [place] [address],[address] [address] Discharge Disposition: Home or Self Care Social [...]
--- OUTSIDE RECORDS SUMMARY | 2024-07-01 20:30 | XMS_ITS | Clinical Summary ---
Author Organization [facility] Address [address] [place] [address] Care Team Providers Care Electronic Prepress Technician Name Role Phone Unknown, Provider Primary Care Provider Allergies Active Allergy Reactions Criticality Noted Date Comments Buspirone Drowsiness 06/22/2022 Gabapentin Muscle Aches 06/22/2022 Haloperidol Lactate Other (See Comments) 2021 I get thrush Hydroxyzine Other (See Comments) 06/22/2022 I black out Encounters Date Type Department Care Team Description 06/29/2024 Lab Requisition [facility] Pathology & Laboratory Medicine - [facility] [address] [place] [address] Outr Resulting Lab, Provider from Last 3 Months Social History Tobacco Use Types Packs/Day Years [...] 3-dose series) 07/23 COVID-19 Vaccine ( season) 2024 Care Teams Electronic Prepress Technician Relationship Specialty Start Date End Date Unknown, Provider, PCP - General 08/07/15
--- OUTSIDE RECORDS SUMMARY | 2024-07-01 20:30 | XMS_ITS | Encounter Summary ---
Author Organization [facility] Address [address] [place] [address] Care Team Providers Care Movement Education Specialist Name Role Phone Unavailable Primary Care Provider Unavailabl e Encounter Details Date Type Department Care Team (Late st Contact Info) Description 12/05/2007 16:04 EDT Hospital Encounter [facility] - Other [address] [place] [address] Gemma Zamora MD [address] [place] [address],[facility] [address] [place] [address] Discharge Disposition: Home or Self [...] [facility] Report Status Final [id number] [facility] 03/27/2008 8:21 EDT 04/02/2008 8:21 EDT Gemma Zamora MD MICROBIOLOGY - GENER AL ORDERABLES [facility] [address] [place] [address] * CYTOPATHOLOGY (03/27/2008 0:00 EDT) Pathology Report: CYTOPATHOLOGY REPORT Reports generated via electronic interface contain original data; however they are lacking the format of the original report. Caution should be taken when reading/interpreti ng unformatted reports. Name: ? ALE ALFONSO ? Accession #: ? [id number] : ? 1985 (Age: 22) ??F ?Collect Date: ? 03/27/2008 Location: ? [facility] ? Receive Date: ? 04/01/2008 Provider: ?GEMMA ZAMORA MD Copy to: ? Specimen/Source: ?ThinPrep Pap Test, Cervix/Endocervix, processed on Wagon ThinPrep Imaging System, with manual evaluation Last [...] MD PATHOLOGY ORDERABLES [facility] [address] [place] [address] * SURGICAL PATHOLOGY (03/27/2008 0:00 EDT) Pathology Report: SURGICAL PATHOLOGY REPORT Reports generated via electronic interface contain original data; however they are lacking the format of the original report. Caution should be taken when reading/interpreti ng unformatted reports. Name: ? ALE ALFONSO ? Accession #: ? [id number] ? : ? 1985 (Age: 22) ??F [...] and concurs with the above diagnosis. ??(Dr. Hill)/[facility] Document reviewed and electronically signed by: Tyler [...] cm. ??Submitted entirely in one cassette. (Dr. Matt)/[facility] End of Report [facility] 03/27/2008 03/28/2008 16: 24 EDT Gemma Zamora MD PATHOLOGY ORDERABLES Performing Organization Address City/State/[facility] Co de Phone Number [facility] [address] [place] [address] * SURGICAL PATHOLOGY (03/27/2008 0:00 EDT) Pathology Report: SURGICAL PATHOLOGY REPORT ? Reports generated via electronic interface contain original data; ? however they are lacking the format of the original report. ? Caution should be taken when reading/interpreti ng unformatted reports. ? Name: ? ALFONSO, ALE ? Accession #: ? [id number] ? : ? 1985 (Age: 22) ??F [...] and concurs with the above diagnosis. ??(Dr. Hill)/[facility] ? Document reviewed and electronically signed by: [...] MD PATHOLOGY ORDERABLES [facility] [address] [place] [address] * CYTOPATHOLOGY (03/27/2008 0:00 EDT) Pathology Report: CYTOPATHOLOGY REPORT ? Reports generated via electronic interface contain original data; ? however they are lacking the format of the original report. ? Caution should be taken when reading/interpreti ng unformatted reports. ? Name: ? ALE ALFONSO ? Accession #: ? [id number] ? : ? 1985 (Age: 22) ??F ?Collect Date: ? 03/27/2008 ? Location: ? [facility] ? Receive Date: ? 04/01/2008 ? Provider: ?GEMMA P YOUNG-DOHERTY MD ? Copy to: ? Specimen/Source: ?ThinPrep Pap Test, Cervix/Endocervix, processed on Wagon ThinPrep Imaging System, with manual evaluation ? [...] PATHOLOGY ORDERABLES [facility] [address] [place] [address] documented in this encounter Visit Diagnoses Not on filedocumented in this encounter
--- OUTSIDE RECORDS SUMMARY | 2024-07-01 20:30 | XMS_ITS | Encounter Summary ---
Author Organization [facility] Address [address] [place] [address] Care Team Providers Care General Counsel Name Role Phone Unknown, Provider Primary Care Provider [phone] Encounter Details Date Type Department Care Team [...] on filedocumented in this encounter Care Teams General Counsel Relationship Specialty Start Date End Date Unknown, Provider, PCP - General 08/07/15 documented as of this encounter
--- OUTSIDE RECORDS SUMMARY | 2024-07-01 20:30 | XMS_ITS | Encounter Summary ---
Author Organization [facility] Address [address] [place] [address] Care Team Providers Care Ornamental Metal Erector Name Role Phone Gemma Zamora MD Primary Care Provider Encounter Details Date Type Department Care Team (Late st Contact Info) Description 10/06/2007 Results Only [facility] [address] [place] [address] Gemma Zamora MD [address] [place] [address],[address] [address] Social History Tobacco Use Types Packs/Day Years [...] ? LINDA ALE ? Accession #: ? [id number] : ? 1985 (Age: 22) ??F ?Collect Date: ? 10/06/2007 Location: ? [facility] ? Receive Date: ? 10/10/2007 Provider: ?GEMMA ZAMORA MD Copy to: ? Specimen/Source: ?ThinPrep Pap Test, Cervix/Endocervix, processed on [email or web address] ThinPrep Imaging System, with manual evaluation Last Menstrual Period: ? 09/01/07 Other: ? HPVA - HPV testing requested if ASC-US on the current ThinPrep Pap test. ? SPECIMEN ADEQUACY ? Satisfactory for Evaluation - transformation zone component present GENERAL CATEGORIZATION ? Epithelial Cell Abnormality INTERPRETATION ? Squamous Cell Abnormality - High grade squamous intraepithelial lesion (HSIL). EDUCATIONAL NOTES/RECOMMENDATI ONS ? [facility] recommends following the 2006 Consensus Guidelines for the Management of Women with Abnormal Cervical Cancer Screening Tests (JLGTD, 2007;11(4):201-222 ). ??Consensus guidelines are available online at www.ASCCP.org. ? Document reviewed and electronically signed by: ? FERNY JEFFERY MD ? Report Date: ??10/16/2007 11:59 End of Report [facility] 10/06/2007 10/10/2007 Gemma Zamora MD PATHOLOGY ORDERABLES [facility] [address] [place] [address] documented in this encounter Visit Diagnoses Not on filedocumented in this encounter Care Teams Ornamental Metal Erector Relationship Specialty Start Date End Date Gemma Zamora MD [address] [place] [address] PCP - General 04/24/09 08/06/15 documented as of this encounter
--- OUTSIDE RECORDS SUMMARY | 2024-07-01 20:30 | XMS_ITS | Encounter Summary ---
Author Organization [facility] Address [address] [place] [address] Care Team Providers Care Machine Repairer Maintenance Name Role Phone Gemma Zamora MD Primary Care Provider Encounter Details Date Type Department Care Team (Latest Contact Info) Description 07/31/2015 10:45 EST - 07/31/2015 23:59 EST Hospital Encounter [address] [address] Unknown, Provider, Discharge Disposition: Home or Self Care Social History Tobacco Use Types Packs/Day Years Used Date Smoking Tobacco: Never Assessed Sex and Gender Information Value Date Recorded Sex Assigned at Not on file Gender Identity Female 06/22/2022 19:03 EDT Sexual Orientation Not on file documented as of this encounter Discharge Disposition Disposition Code Departure Means Destination Home or Self Snf documented in this encounter Plan of Treatment Not on file documented as of this encounter Visit Diagnoses Not on filedocumented in this encounter Care Teams Machine Repairer Maintenance Relationship Specialty Start Date End Date Gemma Zamora MD [address] [place] [address],[facility] [address] [place] [address] PCP - General 04/24/09 08/06/15 documented as of this encounter
--- OUTSIDE RECORDS SUMMARY | 2024-07-01 20:30 | XMS_ITS | Encounter Summary ---
Author Organization [facility] Address [address] [place] [address] Care Team Providers Care Health Safety Specialist Name Role Phone Unavailable Primary Care Provider Unavailabl e Encounter Details Date Type Department Care Team (Late st Contact Info) Description 04/22/2009 10:32 EDT - 04/22/2009 10:33 EDT Hospital Encounter [facility] - Other [address] [place] [address] Gemma Zamora MD [address] [place] [address],[address] [address] Discharge Disposition: Home-Health Care Svc Social History [...]
--- OUTSIDE RECORDS SUMMARY | 2024-07-01 20:30 | XMS_ITS | Encounter Summary ---
Author Organization [facility] Address [address] [place] [address] Care Team Providers Care Filter Washer Name Role Phone Gemma Zamora MD Primary Care Provider Encounter Details Date Type Department Care Team (Late st Contact Info) Description 12/05/2007 Results Only [facility] - Maple conversion [address] [place] [address] Gemma Zamora MD [address] [place] [address],[address] [address] Social History Tobacco Use Types Packs/Day Years [...] ? LINDA ALE ? Accession #: ? [id number] ? : ? 1985 (Age: 22) ??F ? Collect Date: ? 12/05/2007 ? Location: ? [facility] ? Receive Date: ? 12/06/2007 ? Provider: GEMMA ZAMORA MD Copy to: ? Final Pathologic Diagnosis: ? Cervix, biopsy: - Mucus and desquamated debris, insufficient for further diagnosis. ??See comment. Comment: ? The prior Pap test ([id number]) has been reviewed and the diagnosis of [...] tissue. ??Submitted intact in one cassette. ??(Kwame Barajas)/[facility] End of Report [facility] 12/05/2007 12/06/2007 14: 27 EDT Gemma Zamora MD PATHOLOGY ORDERABLES [facility] [address] [place] [address] documented in this encounter Visit Diagnoses Not on filedocumented in this encounter Care Teams Filter Washer Relationship Specialty Start Date End Date Dimas-Gemma Varela MD [address],[facility] [address] [place] [address] PCP - General 04/24/09 08/06/15 documented as of this encounter
--- OUTSIDE RECORDS SUMMARY | 2024-07-01 20:30 | XMS_ITS | Referral Summary ---
Author Organization [facility] Address [address] [place] [address] Care Team Providers Care Trousseau Consultant Name Role Phone Unknown, Provider MD Primary Care Provider Encounters Date Type Department Care Team Description 06/29/2024 Lab Requisition [facility] Pathology & Laboratory Medicine - [facility] [address] [place] [address] Outr Resulting Lab, Provider from Last 3 Months Allergies Active Allergy Reactions Criticality Noted Date [...] 06/22/2022 1752 EDT Respiratory Rate 16 06/22/2022 175 EDT Oxygen Saturation 100% 06/22/2022 175 EDT Inhaled Oxygen Concentration - - Weight - - Height - - Body Mass Index - - Functional Status Functional Status Response Date of Assess ment Are you deaf or do you have serious difficulty h earing? No 06/22/2022 Plan of Treatment Not on file Care Teams Trousseau Consultant Relationship Specialty Start Date End Date Unknown, Provider, PCP - General 08/07/15
--- OUTSIDE RECORDS SUMMARY | 2024-07-01 20:30 | XMS_ITS | Encounter Summary ---
Author Organization [facility] Address [address] [place] [address] Care Team Providers Care Teacher Lip Reading Name Role Phone Unknown, Provider Primary Care Provider Reason for Visit * Reason Comments Suicidal pt reports worsening anxiety since november, pt states i just about quit my job today and can't deal with my anxiety anymore. Pt endorses SI, denies plan. Anxiety Encounter Details Date Type Department Care Team (Late st Contact Info) Description 06/22/2022 17:58 EDT - 06/23/2022 0:06 EDT Emergency [facility] [address] [place], [place] [id number] Africa Rodriguez, [address] [place] [address] Isaias Torres MD [address] [place] [address] Anxiety (Primary Dx) Discharge Disposition: [...] of self-harm, or harm of others, call [phone] or return to the emergency department. documented in this encounter Discharge Disposition Disposition Code Departure Means Destination Home or Self [facility] documented in this encounter ED Notes * Kate Deng RN - 06/22/20227 EDT Patient cooperative with discharge plan and is changing and has agreed to wait in the waiting room for her ride * Brittnee Danielson - 06/22/2022 5057 EDT Pt given own clothes to change into and is being discharged. * Isaias Torres MD - 06/22/2022 2487 EDT Patient signed out to me at [...] anxiety and suicidal ideation. Patient seen by [facility] who recommends she be seen by psychiatry. [...] a suicide attempt and was admitted to [facility] at that time. Patient cannot remember [...] 22 documented in this encounter Care Teams Teacher Lip Reading Relationship Specialty Start Date End Date Unknown, Provider, PCP - General 08/07/15 documented as of this encounter
--- OUTSIDE RECORDS SUMMARY | 2024-07-01 20:30 | XMS_ITS | Encounter Summary ---
Author Organization [facility] Address [address] [place] [address] Care Team Providers Care Vacuum Truck Driver Name Role Phone Gemma Zamora MD Primary Care Provider [phone] Encounter Details Date Type Department Care Team (Late st Contact Info) Description 06/12/2010 10:52 EDT - 06/12/2010 10:53 EDT Hospital Encounter [facility] - Other [address] [place] [address] Gemma Zamora MD [address] ,[address] [id number] Discharge Disposition: Home or Self Care Social [...] on filedocumented in this encounter Care Teams Vacuum Truck Driver Relationship Specialty Start Date End Date Gemma Zamora MD [address] ,[address] [id number] PCP - General 04/24/09 08/06/15 documented as of this encounter
--- OUTSIDE RECORDS SUMMARY | 2024-07-01 20:30 | XMS_ITS | Encounter Summary ---
Author Organization [facility] Address [address] [place] [address] Care Team Providers Care Permit Technician Name Role Phone Unknown, Provider Primary Care Provider Encounter Details Date Type Department Care Team (Late st Contact Info) Description 06/29/2024 Lab Requisition [facility] Pathology & Laboratory Medicine - [facility] [address] [place] [address] Outr Resulting Lab, Provider Social History Tobacco Use Types Packs/Day Years Used Date Smoking Tobacco: Never Assessed Interpersonal Safety Answer Date Record ed Physically Hurt Never 04/27/2020 Verbally Threaten Not on file 04/27/2020 Sex and Gender Information Value Date Recorded Sex Assigned at Not on file Gender Identity Female 06/22/2022 19:03 EDT Sexual Orientation Not on file documented as of this encounter Functional Status Functional Status Response Date of Assess ment Are you deaf or do you have serious difficulty h earing? No 06/22/2022 documented as of this encounter Plan of Treatment Pending Results Name Type Priority Associated Diagnoses Date /Time CHLAMYDIA/N. GONORRHOEAE AMPLIFIED NUCLEIC ACID Microbiology Routine 06/28/2024 20:48 EDT documented as of this encounter Visit Diagnoses Not on filedocumented in this encounter Care Teams Permit Technician Relationship Specialty Start Date End Date Unknown, Provider, PCP - General 08/07/15 documented as of this encounter
--- OUTSIDE RECORDS SUMMARY | 2024-07-01 20:30 | XMS_ITS | Encounter Summary ---
Author Organization [facility] Address [address] [place] [address] Care Team Providers Care Monogram Machine Operator Name Role Phone Unknown, Provider Primary Care Provider [phone] Encounter Details Date Type Department Care Team (Late st Contact Info) Description 10/19/2017 Results Only [facility] [phone] Gemma Zamora MD [address] [place] [address],[address] [address] Social History Tobacco Use Types [...] Name: ? ALFONSOALE ? Accession #: ? [id number] ? : ? 1985 (Age: 32) ??F [...] (ASCP) 10/20/2017 5:07 PM End of Report [facility] 10/19/2017 16:5 9 EST 10/20/2017 16:59 EST Gemma Zamora MD PATHOLOGY ORDERABLES [facility] [address] [place] [address] documented in this encounter Visit Diagnoses Not on filedocumented in this encounter Care Teams Monogram Machine Operator Relationship Specialty Start Date End Date Unknown, Provider, PCP - General 08/07/15 documented as of this encounter
--- OUTSIDE RECORDS SUMMARY | 2024-07-01 20:30 | XMS_ITS | Encounter Summary ---
Author Organization [facility] Address [address] [place] [address] Care Team Providers Care Aquacultural Worker Supervisor Name Role Phone Unavailable Primary Care Provider Unavailabl e Encounter Details Date Type Department Care Team (Late st Contact Info) Description 03/27/2008 10:09 EDT - 03/27/2008 11:59 EDT Hospital Encounter [facility] - Other [address] [place] [address] Gemma Zamora MD [address] [place] [address],[address] [address] Discharge Disposition: Home or Self Care Social [...] ? ALE ALFONSO ? Accession #: ? [id number] ? : ? 1985 (Age: 23) ??F [...] MD PATHOLOGY ORDERABLES [facility] [address] [place] [address] documented in this encounter Visit Diagnoses Not on filedocumented in this encounter
--- OUTSIDE RECORDS SUMMARY | 2024-07-01 20:30 | XMS_ITS | Encounter Summary ---
Author Organization [facility] Address [address] [place] [address] Care Team Providers Care Coremaker Apprentice Name Role Phone Gemma Zamora MD Primary Care Provider [phone] Encounter Details Date Type Department Care Team (Late st Contact Info) Description 06/12/2010 Results Only [facility] Laboratory Services - [facility] ([facility]) [address] [place] [id number] Gemma Zamora MD [address] [place] [address],[facility] [address] [place] [address] Social History Tobacco Use Types Packs/Day Years [...] ? ALE ALFONSO ? Accession #: ? [id number] ? : ? 1985 (Age: 24) ??F [...] significance (ASC-US). ? EDUCATIONAL NOTES/RECOMMENDATI ONS ? [facility] recommends following the 2006 Consensus Guidelines [...] MD PATHOLOGY ORDERABLES [facility] [address] [place] [address] documented in this encounter Visit Diagnoses Not on filedocumented in this encounter Care Teams Coremaker Apprentice Relationship Specialty Start Date End Date Gemma Zamora MD [facility]AY[facility] [address] [place] [address] PCP - General 04/24/09 08/06/15 documented as of this encounter
--- NOTE | 2024-07-01 20:41 | NUR.NOTE ---
Nursing Note: the pt had left the wr numerous times stating that the nursing staff were mean and judging her, the pt came back to room 5, diana and this nurse went into the room to talk to the pt and to see what could be done to help her symptoms that she states has not been properly treated at other hospitals, the pt was very defensive and stated that other places made her have a crisis eval, currently in the room we reassured the pt that her abd/vaginal pain was a medical concern that would be addressed during this visit and what treatments of medications that she would be willing to try, the pt then stated that we were not helping and left the room and walked out of the ED.
== END 2024-07-01 20:44 | disposition left against medical advice (07) ==
LOC: ER 20:29
PROVIDERS: Emergency Provider Nurse Practitioner Family
DX: R10.31 Right lower quadrant pain (principal); R11.0 Nausea; R19.7 Diarrhea, unspecified; Z53.29 Procedure and treatment not carried out because of patient's decision for other reasons
CPT/HCPCS: 99281; 99282

== ENCOUNTER 2024-07-02 17:14 | Emergency (ER) | payer MEDICAID, SELFPAY ==
--- OUTSIDE RECORDS SUMMARY | 2024-07-02 17:26 | XMS_ITS | Referral Summary ---
Author Organization [facility] Address [address] [place] [address] Care Team Providers Care Wax Cutter Name Role Phone Unknown, Provider MD Primary Care Provider Encounters Date Type Department Care Team Description 06/29/2024 Lab Requisition [facility] Pathology & Laboratory Medicine - [facility] [address] [place] [address] Outr Resulting Lab, Provider from Last 3 [...] 06/22/2022 Plan of Treatment Not on file Procedures Procedure Name Priority Date/Time Associated Diagnosis Comments CHLAMYDIA/N. GONORRHOEAE AMPLIFIED NUCLEIC ACID Routine 06/28/2024 20:48 EDT from Last 3 Months Results * CHLAMYDIA/N. GONORRHOEAE AMPLIFIED NUCLEIC ACID (06/28/2024 20:48 EDT) Neisseria gonorrhoeae Result Negative Negative 07/02/2024 12:00 EDT [facility] Chlamydia trachomatis Result Negative Negative 07/02/2024 12:00 EDT [facility] Swab VAGINAL STRUCTURE / Unknown 06/28/2024 20:48 EDT 06/29/2024 17:58 EDT Provider Outr Resulting Lab MICROBIOLOGY - GENERAL ORDERABLES [facility] [address] [place] [address] from Last 3 Months Care Teams Wax Cutter Relationship Specialty Start Date End Date Unknown, Provider, PCP - General 08/07/15
--- OUTSIDE RECORDS SUMMARY | 2024-07-02 17:26 | XMS_ITS | Encounter Summary ---
Author Organization [facility] Address [address] [place] [address] Care Team Providers Care Medical Reimbursement Manager Name Role Phone Unknown, Provider Primary Care Provider [phone] Encounter Details Date Type Department Care Team (Late st Contact Info) Description 10/19/2017 Results Only [facility] [phone] Gemma Zamora MD [address] [place] [address],[address] [address] Social History Tobacco Use Types [...] Name: ? ALFONSOALE ? Accession #: ? [id number] ? : ? 1985 (Age: 32) ??F [...] (ASCP) 10/20/2017 5:07 PM End of Report [facility] 10/19/2017 16:5 9 EST 10/20/2017 16:59 EST Gemma Zamora MD PATHOLOGY ORDERABLES [facility] [address] [place] [address] documented in this encounter Visit Diagnoses Not on filedocumented in this encounter Care Teams Medical Reimbursement Manager Relationship Specialty Start Date End Date Unknown, Provider, PCP - General 08/07/15 documented as of this encounter
--- OUTSIDE RECORDS SUMMARY | 2024-07-02 17:26 | XMS_ITS | Encounter Summary ---
Author Organization [facility] Address [address] [place] [address] Care Team Providers Care Web Operations Administrator Name Role Phone Unknown, Provider Primary Care Provider [phone] Encounter Details Date Type Department Care Team (Late st Contact Info) Description 06/29/2024 Lab Requisition [facility] Pathology & Laboratory Medicine - [address] [address] Outr Resulting Lab, Provider Social History Tobacco [...] AMPLIFIED NUCLEIC ACID Routine 06/28/2024 20:48 EDT documented in this encounter Results * CHLAMYDIA/N. GONORRHOEAE AMPLIFIED NUCLEIC ACID (06/28/2024 20:48 EDT) Neisseria gonorrhoeae Result Negative Negative 07/02/2024 12:00 EDT [facility] Chlamydia trachomatis Result Negative Negative 07/02/2024 12:00 EDT [facility] Swab VAGINAL STRUCTURE / Unknown 06/28/2024 20:48 EDT 06/29/2024 17:58 EDT Provider Outr Resulting Lab MICROBIOLOGY - GENERAL ORDERABLES [facility] [address] [place] [address] documented in this encounter Visit Diagnoses Not on filedocumented in this encounter Care Teams Web Operations Administrator Relationship Specialty Start Date End Date Unknown, Provider, PCP - General 08/07/15 documented as of this encounter
--- OUTSIDE RECORDS SUMMARY | 2024-07-02 17:26 | XMS_ITS | Clinical Summary ---
Author Organization [facility] Address [address] [place] [address] Care Team Providers Care Accessioner Name Role Phone Unknown, Provider Primary Care Provider [phone] Allergies Active Allergy Reactions Criticality Noted Date Comments Buspirone Drowsiness 06/22/2022 Gabapentin Muscle Aches 06/22/2022 Haloperidol Lactate Other (See Comments) 2021 I get thrush Hydroxyzine Other (See Comments) 06/22/2022 I black out Encounters Date Type Department Care Team Description 06/29/2024 Lab Requisition [facility] Pathology & Laboratory Medicine - [facility] [address] [place] [address] Outr Resulting Lab, Provider from Last 3 [...] series) 07/23 COVID-19 Vaccine ( season) 2024 Procedures Procedure Name Priority Date/Time Associated Diagnosis Comments CHLAMYDIA/N. GONORRHOEAE AMPLIFIED NUCLEIC ACID Routine 06/28/2024 20:48 EDT from Last 3 Months Results * CHLAMYDIA/N. GONORRHOEAE AMPLIFIED NUCLEIC ACID (06/28/2024 20:48 EDT) Neisseria gonorrhoeae Result Negative Negative 07/02/2024 12:00 EDT [facility] Chlamydia trachomatis Result Negative Negative 07/02/2024 12:00 EDT [facility] Swab VAGINAL STRUCTURE / Unknown 06/28/2024 20:48 EDT 06/29/2024 17:58 EDT Provider Outr Resulting Lab MICROBIOLOGY - GENERAL ORDERABLES [facility] [address] [place] [address] from Last 3 Months Care Teams Accessioner Relationship Specialty Start Date End Date Unknown, Provider, PCP - General 08/07/15
--- OUTSIDE RECORDS SUMMARY | 2024-07-02 17:26 | XMS_ITS | Encounter Summary ---
Author Organization [facility] Address [address] [place] [address] Care Team Providers Care Manager Lsw Name Role Phone Unknown, Provider Primary Care Provider [phone] Reason for Visit * Reason Comments Suicidal pt reports worsening anxiety since november, pt states i just about quit my job today and can't deal with my anxiety anymore. Pt endorses SI, denies plan. Anxiety Encounter Details Date Type Department Care Team (Late st Contact Info) Description 06/22/2022 17:58 EDT - 06/23/2022 0:06 EDT Emergency [facility] Emergency Department [address], [place] [id number] Africa Rodriguez, [address] [place] [address] Isaias Torres MD [address] [place] [address] Anxiety (Primary Dx) Discharge Disposition: [...] of self-harm, or harm of others, call [phone] or return to the emergency department. documented in this encounter Discharge Disposition Disposition Code Departure Means Destination Home or Self [facility] documented in this encounter ED Notes * Kate Deng RN - 06/22/20227 EDT Patient cooperative with discharge plan and is changing and has agreed to wait in the waiting room for her ride * Brittnee Danielson - 06/22/2022 8557 EDT Pt given own clothes to change into and is being discharged. * Isaias Torres MD - 06/22/2022 9506 EDT Patient signed out to me at shift change pending psychiatric evaluation. Psychiatry feels the patient is appropriate to go home. Discharging patient. * Brittnee Danielson - 06/22/2022 2324 EDT Pt spoke with Dr Soot via telephone and is awaiting discharge at [...] anxiety and suicidal ideation. Patient seen by [facility] who recommends she be seen by [...] a suicide attempt and was admitted to [facility] at that time. Patient cannot remember [...] 22 documented in this encounter Care Teams Manager Lsw Relationship Specialty Start Date End Date Unknown, Provider, PCP - General 08/07/15 documented as of this encounter
--- OUTSIDE RECORDS SUMMARY | 2024-07-02 17:26 | XMS_ITS | Encounter Summary ---
Author Organization [facility] Address [address] [place] [address] Care Team Providers Care Customer Sales Consultant Name Role Phone Unknown, Provider Primary Care Provider [phone] Encounter Details Date Type Department Care Team [...] on filedocumented in this encounter Care Teams Customer Sales Consultant Relationship Specialty Start Date End Date Unknown, Provider, PCP - General 08/07/15 documented as of this encounter
--- OUTSIDE RECORDS SUMMARY | 2024-07-02 17:26 | XMS_ITS | Encounter Summary ---
Author Organization [facility] Address [address] [place] [address] Care Team Providers Care Bricklayer Paving Brick Name Role Phone Unknown, Provider Primary Care Provider Encounter Details Date Type Department Care Team (Latest Contact Info) Description 10/19/2017 10:03 EST - 10/19/2017 23:59 EST Hospital Encounter [address] [address] Unknown, Provider, Discharge Disposition: Home or Self [...] on filedocumented in this encounter Care Teams Bricklayer Paving Brick Relationship Specialty Start Date End Date Unknown, Provider, PCP - General 08/07/15 documented as of this encounter
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
--- OUTSIDE RECORDS SUMMARY | 2024-07-02 17:27 | XMS_ITS | Encounter Summary ---
Author Organization [facility] Address [address] [place] [address] Care Team Providers Care Boilermaker'S Assistant Name Role Phone Gemma Zamora MD Primary Care Provider Encounter Details Date Type Department Care Team (Late st Contact Info) Description 10/06/2007 Results Only [facility] [address] [place] [address] Gemma Zamora MD [address] [place] [address],[address] [address] Social History Tobacco Use Types Packs/Day Years [...] ? LINDA ALE ? Accession #: ? [id number] : ? 1985 (Age: 22) ??F ?Collect Date: ? 10/06/2007 Location: ? [facility] ? Receive Date: ? 10/10/2007 Provider: ?GEMMA ZAMORA MD Copy to: ? Specimen/Source: ?ThinPrep Pap Test, Cervix/Endocervix, processed on [employer] ThinPrep Imaging System, with manual evaluation Last Menstrual Period: ? 09/01/07 Other: ? HPVA - HPV testing requested if ASC-US on the current ThinPrep Pap test. ? SPECIMEN ADEQUACY ? Satisfactory for Evaluation - transformation zone component present GENERAL CATEGORIZATION ? Epithelial Cell Abnormality INTERPRETATION ? Squamous Cell Abnormality - High grade squamous intraepithelial lesion (HSIL). EDUCATIONAL NOTES/RECOMMENDATI ONS ? [facility] recommends following the 2006 Consensus Guidelines for the Management of Women with Abnormal Cervical Cancer Screening Tests (JLGTD, 2007;11(4):201-222 ). ??Consensus guidelines are available online at www.ASCCP.org. ? Document reviewed and electronically signed by: ? FERNY JEFFERY MD ? Report Date: ??10/16/2007 11:59 End of Report [facility] 10/06/2007 10/10/2007 Gemma Zamora MD PATHOLOGY ORDERABLES JANETTE WALLIS [address] [place] [address] documented in this encounter Visit Diagnoses Not on filedocumented in this encounter Care Teams Boilermaker'S Assistant Relationship Specialty Start Date End Date Gemma Zamora MD [address] [place] [address] PCP - General 04/24/09 08/06/15 documented as of this encounter
--- OUTSIDE RECORDS SUMMARY | 2024-07-02 17:27 | XMS_ITS | Encounter Summary ---
Author Organization [facility] Address [address] [place] [address] Care Team Providers Care Fish Frog Or Oyster Farmer Name Role Phone Unavailable Primary Care Provider Unavailabl e Encounter Details Date Type Department Care Team (Late st Contact Info) Description 04/22/2009 10:32 EDT - 04/22/2009 10:33 EDT Hospital Encounter [facility] - Other [address] [place] [address] Gemma Zamora MD [address] [place] [address],[address] [address] Discharge Disposition: Home-Health Care Svc Social History [...]
--- OUTSIDE RECORDS SUMMARY | 2024-07-02 17:27 | XMS_ITS | Encounter Summary ---
Author Organization [facility] Address [address] [place] [address] Care Team Providers Care Pipe Fitter Name Role Phone Unavailable Primary Care Provider Unavailabl e Encounter Details Date Type Department Care Team (Late st Contact Info) Description 03/27/2008 10:09 EDT - 03/27/2008 11:59 EDT Hospital Encounter [facility] - Other [address] [place] [address] Gemma Zamora MD [address] [place] [address],[address] [address] Discharge Disposition: Home or Self Care Social [...] ? ALE ALFONSO ? Accession #: ? [id number] ? : ? 1985 (Age: 23) ??F [...] MD PATHOLOGY ORDERABLES [facility] [address] [place] [address] documented in this encounter Visit Diagnoses Not on filedocumented in this encounter
--- OUTSIDE RECORDS SUMMARY | 2024-07-02 17:27 | XMS_ITS | Encounter Summary ---
Author Organization [facility] Address [address] [place] [address] Care Team Providers Care Soyfreeze Operator Name Role Phone Unavailable Primary Care Provider Unavailabl e Encounter Details Date Type Department Care Team (Late st Contact Info) Description 12/05/2007 16:04 EDT Hospital Encounter [facility] - Other [address] [place] [address] Gemma Zamora MD [address] [place] [address],[facility] [address] [place] [address] Discharge Disposition: Home or Self [...] 51, 52, 56, 58, 59, and 68. [facility] Report Status Final [id number] [facility] 03/27/2008 8:21 EDT 04/02/2008 8:21 EDT Gemma Zamora MD MICROBIOLOGY - GENER AL ORDERABLES [facility] [address] [place] [address] * CYTOPATHOLOGY (03/27/2008 0:00 EDT) Pathology Report: CYTOPATHOLOGY REPORT Reports generated via electronic interface contain original data; however they are lacking the format of the original report. Caution should be taken when reading/interpreti ng unformatted reports. Name: ? ALE ALFONSO ? Accession #: ? [id number] : ? 1985 (Age: 22) ??F ?Collect Date: ? 03/27/2008 Location: ? [facility] ? Receive Date: ? 04/01/2008 Provider: ?GEMMA ZAMORA MD Copy to: ? Specimen/Source: ?ThinPrep Pap Test, Cervix/Endocervix, processed on [employer] ThinPrep Imaging System, with manual evaluation Last [...] MD PATHOLOGY ORDERABLES [facility] [address] [place] [address] * SURGICAL PATHOLOGY (03/27/2008 0:00 EDT) Pathology Report: SURGICAL PATHOLOGY REPORT Reports generated via electronic interface contain original data; however they are lacking the format of the original report. Caution should be taken when reading/interpreti ng unformatted reports. Name: ? ALE ALFONSO ? Accession #: ? [id number] ? : ? 1985 (Age: 22) ??F [...] and concurs with the above diagnosis. ??(Dr. Hill)/[facility] Document reviewed and electronically signed by: [...] cm. ??Submitted entirely in one cassette. (Dr. Matt)/[facility] End of Report [facility] 03/27/2008 03/28/2008 16: 24 EDT Gemma Zamora MD PATHOLOGY ORDERABLES Performing Organization Address City/State/[facility] Co de Phone Number [facility] [address] [place] [address] * SURGICAL PATHOLOGY (03/27/2008 0:00 EDT) Pathology Report: SURGICAL PATHOLOGY REPORT ? Reports generated via electronic interface contain original data; ? however they are lacking the format of the original report. ? Caution should be taken when reading/interpreti ng unformatted reports. ? Name: ? ALFONSO, ALE ? Accession #: ? [id number] ? : ? 1985 (Age: 22) ??F [...] and concurs with the above diagnosis. ??(Dr. Hill)/[facility] ? Document reviewed and electronically signed [...] MD PATHOLOGY ORDERABLES [facility] [address] [place] [address] * CYTOPATHOLOGY (03/27/2008 0:00 EDT) Pathology Report: CYTOPATHOLOGY REPORT ? Reports generated via electronic interface contain original data; ? however they are lacking the format of the original report. ? Caution should be taken when reading/interpreti ng unformatted reports. ? Name: ? ALE ALFONSO ? Accession #: ? [id number] ? : ? 1985 (Age: 22) ??F ?Collect Date: ? 03/27/2008 ? Location: ? [facility] ? Receive Date: ? 04/01/2008 ? Provider: ?GEMMA P YOUNG-DOHERTY MD ? Copy to: ? Specimen/Source: ?ThinPrep Pap Test, Cervix/Endocervix, processed on [employer] ThinPrep Imaging System, with manual evaluation ? [...] Zamora MD PATHOLOGY ORDERABLES JANETTE [facility] [address] [place] [address] documented in this encounter Visit Diagnoses Not on filedocumented in this encounter
--- OUTSIDE RECORDS SUMMARY | 2024-07-02 17:27 | XMS_ITS | Data Portability ---
Author Organization [place] - [facility] Address [address] [place] [address] Assessment Encounter Date Assessment Date Assessment LastModified by Organization Details LastModified Time 06/29/2024 06/29/2024 PMMIAN, [email or web address] Not available 12/2023 14:29:52 Plan of Treatment Reminders Order Date Submit Date Provider Last Modified By Organization Details Last Modified Time Details Appointments Follow Up 30 2023 01:00P Nikki Lagunas Not available Not available Not available Lab None recorded. Referral [facility] referral - Pt, 38- currently going through breakup with boyfriend and she will have to find housing, she is in touch w/john a, she would like to establish therapy with here. 2023 024 [email or web address] Not available 07/02/2024 09:25:22 gynecolog ist referral - Right side ovarian cyst, painful abdomen for 3-4 months duration, had multpe trips to ED, at [facility] yesterday (ED) Dx'd with BV, given Flagyl, mild fever at 101F, pt. guided to take Flagyl, and go to ED if abdominal pain worsens. 2023 024 [email or web address] [facility] (Obgyn), [address] [place] [address] [place] [facility] [place], [address], 07/02/2024 09:19:27 psycholog ist referral - Pt. [...] this or not. 2023 [email or web address] Sumaya Camacho chief cook, [address] [place], [address], 07/02/2024 09:26:52 Procedures None recorded. Surgeries None recorded. Imaging None recorded. Medication Orders clindamyc in HCl 300 mg capsule 2023 [facility], [address] [place], [address], 06/29/2024 16:00:29 Diflucan 150 mg tablet 2023 [facility], [address] [place], [address], 06/29/2024 16:00:28 Patient TargetsNo targets recorded. Patient Instructions Encounter Date Encounter Id Patient Instructions Last Modified By Organization Details Last Modified Time 06/29/2024 [id number] 1) Follow up w/[employer], we need to get your next housing set up 2) Take antibiotics, if no better, or worse, fever worsening not resolving, back to ED. 3) Follow up with me next week 4) I will place referral to adult evaluation of autism. 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 Referring Physician: Ajit Lagunas, [facility], Encounter Date: 06/29/2024 Psychologist Referral for [...] this or not. Referring Physician: Ajit Lagunas, Family Medicine, Encounter Date: 06/29/2024 Results Created Date Observation Date Name Description Value Unit Range Abnormal Flag Note LastModifiedBy Organization Detail LastModifiedTime 06/15/20 24 12/04/2010 abi hartmann am No observ ation record ed. Not Available 2023 14:53:22 Result Notes None recorded. Problems Name Problem SNOMED Code Status Onset Date Resolution Date Notes Provider Name and Address Organization Details Recorded Time Polycystic ovary syndrome 512281893 Active 2021 RAFFAELE BURNETT, [facility] 4 15:02:57 Borderline personality disorder 37271239 Active 2021 RAFFAELE BURNETT, [facility] 4 15:03:16 Hirsutism 201218281 Active 2021 YOUSIF GONZALEZ MA null, [facility] 4 15:04:10 Posttraumat ic stress disorder 05678950 Active 2021 YOUSIF GONZALEZ MA null, [facility] 4 15:04:27 Irregular periods 77046821 Active 2021 RAFFAELE BURNETT, [facility] 4 15:04:44 Insomnia 791028084 Active 2021 YOUSIF GONZALEZ MA null, [facility] 4 15:06:22 Non-alcohol ic fatty liver 425378621 Active 2021 YOUSIF GONZALEZ MA null, [facility] 4 15:06:42 Asthma 438385189 Active 2021 YOUSIF GONZALEZ MA null, [facility] 4 15:07:14 Attention deficit hyperactivi ty disorder 573571416 Active 2021 YOUSIF GONZALEZ MA null, [facility] 4 15:07:31 Depressive disorder 93323274 Active 2021 YOUSIF GONZALEZ MA null, [facility] 4 15:07:53 Cyst of ovary 24279752 Active 2023 MCKENNA CHILDRESS [address], [place], [address], [facility] 4 14:20:57 Bacterial vaginosis 312889750 Active 2023 MCKENNA CHILDRESS [address], [place], [address], [facility] 14:26:53 Anxiety 45949607 Active [address], [place] [id number], [facility] 14:28:04 Candidiasis of vagina 71523285 Active [address], [place] [address], [facility] 14:55:52 Stress reaction with psychomotor agitation 1194886198906 1 Active [address], [place] [address], [facility] 15:34:16 Stress and adjustment reaction 252338136 Active [address], [place] [address], [facility] 15:34:59 Problem Notes None recorded. Procedures Surgical History Date Name Laterality Status Provider Name and Address Organization Details Recorded Time appendectomy completed YOUSIF GONZALEZ MA [facility] 06/15/2024 15:13:43 colonoscopy completed YOUSIF GONZALEZ MA [facility] 06/15/2024 15:13:31 cholecystostomy completed YOUSIF GONZALEZ MA [facility] 06/15/2024 15:14:02 Imaging Results Imaging Date Name Status LastModified by Organization Details LastModified Time 12/04/2010 electrocardiogram completed Informa tion not available 06/15/2024 14:53:22 Procedure Notes None recorded. Medical Equipment None Reported. Allergies Allergen ID Allergen Name Allergen Category Reaction Reaction Severity Criticality Documentation Date Start Date Code Code System Note Provider Name and Address Organization Details Recorded Time 65326 hydroxyzi ne Not available Not available Not available Not available 06/15/2024 5553 RxNorm YOUSIF GONZALEZ MA null, [facility] 4 14:55:53 95461 buspirone medicatio n Not available Not available Not available 06/15/2024 1827 RxNorm RAFFAELE BURNETT, [facility] 4 14:56:27 55719 Haldol medicatio n hallucina tions Not available Not available 06/15/2024 77822 9 RxNorm RAFFAELE BURNETT, [facility] 14:56:42 90073 gabapenti n medicatio n Not available Not available Not available 06/15/2024 58680 RxNoshu YOUSIF JUWANSHYRAFFAELE, [facility] 14:57:24 04410 cyclobenz aprine medicatio n Not available Not available Not available 06/15/2024 89937 RxNoshu GONZALEZRAFFAELE, [facility] 14:57:33 12527 Bactrim medicatio n vomiting Not available Not available 06/15/2024 32206 9 RxNorm RAFFAELE BURNETT, [facility] 14:57:49 17080 trazodone medicatio n Not available Not available Not available 06/15/2024 36097 RxNoshu MIDDLETONRAFFAELE SHAFER, [facility] 14:58:40 89531 peach food Not available Not available Not available 06/15/2024 YOUSIF RAFFAELE GONZALEZ, [facility] 4 14:58:50 24643 cyclobenz aprine hydrochlo ride medicatio n Not available Not available Not available 06/15/2024 11729 RxNoshu YOUSIF RAFFAELE GONZALEZ, [facility] 14:59:44 17402 Paxil medicatio n hives Not available Not available 06/15/2024 70224 8 RxNoshu GONZALEZRAFFAELE, [facility] 09/20/202 4 15:00:23 73560 Neurontin medicatio n Not available Not available Not available 06/15/2024 32957 8 RxNorm RAFFAELE BURNETT, [facility] 4 15:00:37 20324 Buspar medicatio n Not available Not available Not available 06/15/2024 19952 0 RxNoRAFFAELE Dickson, [facility] 4 15:00:49 70608 trimethop rim medicatio n Not available Not available Not available 06/15/2024 09389 RxNoRAFFAELE Dickson, [facility] 4 15:01:00 44014 paroxetin e Not available itching Not available Not available 06/15/2024 67969 RxRAFFAELE Augustin, [facility] 4 15:01:22 01777 Vistaril medicatio n Not available Not available Not available 06/15/2024 29357 9 RxNoRAFFAELE Dickson, [facility] 4 15:01:33 Medications Name Sig Start Date [...] Last Updated DateTime 160.02 cm 40.6 kg/m2 338865. 37 g 101.3 [degF] 97 % 97 % 95 /min 118 mm[Hg] 80 mm[Hg] YOUSIF GONZALEZ MA [facility] 13:35:54 Social History Question Answer Notes LastModified by Organizat ion Details LastModified Time Tobacco Smoking Status Former Smoker YOUSIF GONZALEZ MA null, [facility] 06/29/2024 13:38:17 Do You Or Have You [...] Diagnosis/Indication Diagnosis SNOMED-CT Code Diagnosis ICD10 Code 6769975 MCKENNA CHILDRESS [facility] [address] [place] [address] 06/29/2024 13:13:52 06/29/2024 15:29:20 Cyst of ovary 86326843 N83.209 Bacterial vaginosis 4197 56903 N76.0 Anxiety 03036534 F41.9 Candidiasis of vagina 72 535629 B37.31 Stress and adjustment reaction 592230113 F43.9 Health Concerns Section Related Observation LastModified by Organization Detai ls LastModified Time None Recorded Concern Status LastModified by Organization Details LastModified Time None Recorded Advance Directives Directive None Recorded Payers Encounter Date Sequence Insurance Name Policy Number Policy Ayala Covered Member ID Ayala Member ID Guarantor Name 06/29/2024 1 [facility] (MEDICAID) Elvia Alfonso [id number] Elvia Alfonso Notes Date Note Type Note Provider Name and Address Organization Details Recorded Time 06/29/2024 text/html HPI Notes: Pt, 38-F, here as new patient to establish care. Psych: Pt. w/hx. of PTSD, agitation. She was seen at [facility] yesterday. Given Flagyl for BV has not picked it up yet. Had ear infections and had some level of pulsatile tinnitis since. ADHD: Theresa Rollins had done [facility]: Hyperflexibility: Can put thumb to dorsal wrist, palms flat on floor, has ability to flex at DIP in most fingers BL. No hx. of joint dislocation, hernia, no fam hx. of aneurysm, hernia, hernia failure. MCKENNA CHILDRESS [address], [place], [address], [facility], [facility]. 06/29/2024 16:03:55 OBGyn Episode No OBEpisode recorded.
--- OUTSIDE RECORDS SUMMARY | 2024-07-02 17:27 | XMS_ITS | Encounter Summary ---
Author Organization [facility] Address [address] [place] [address] Care Team Providers Care Preschool Teacher'S Assistant Name Role Phone Gemma Zamora MD Primary Care Provider Encounter Details Date Type Department Care Team (Late st Contact Info) Description 06/12/2010 10:52 EDT - 06/12/2010 10:53 EDT Hospital Encounter [facility] - Other [address] [place] [address] Gemma Zamora MD [address] ,[address] [id number] Discharge Disposition: Home or Self Care Social [...] on filedocumented in this encounter Care Teams Preschool Teacher'S Assistant Relationship Specialty Start Date End Date Gemma Zamora MD [address] ,[address] [phone] PCP - General 04/24/09 08/06/15 documented as of this encounter
--- OUTSIDE RECORDS SUMMARY | 2024-07-02 17:27 | XMS_ITS | Encounter Summary ---
Author Organization [facility] Address [address] [place] [address] Care Team Providers Care Freight Separator Name Role Phone Gemma Zamora MD Primary Care Provider Encounter Details Date Type Department Care Team (Late st Contact Info) Description 06/12/[address] [facility] Services - [facility] ([facility] [address] [place] [id number] Gemma Zamora MD [address] [place] [address],[facility] [address] [place] [address] Social History Tobacco Use Types Packs/Day Years [...] ? ALE ALFONSO ? Accession #: ? [id number] ? : ? 1985 (Age: 24) ??F [...] significance (ASC-US). ? EDUCATIONAL NOTES/RECOMMENDATI ONS ? [facility] recommends following the 2006 Consensus Guidelines for [...] MD PATHOLOGY ORDERABLES [facility] [address] [place] [address] documented in this encounter Visit Diagnoses Not on filedocumented in this encounter Care Teams Freight Separator Relationship Specialty Start Date End Date Gemma Zamora MD KAYLIN MAGANA,[facility] [address] [place] [address] PCP - General 04/24/09 08/06/15 documented as of this encounter
--- OUTSIDE RECORDS SUMMARY | 2024-07-02 17:27 | XMS_ITS | Encounter Summary ---
Author Organization [facility] Address [address] [place] [address] Care Team Providers Care Bush And Vine Fruit Crop Farmer Name Role Phone Gemma Zamora MD Primary Care Provider Encounter Details Date Type Department Care Team (Late st Contact Info) Description 12/05/2007 Results Only [facility] [place] [facility] - Maple conversion [address] [place] [address] Gemma Zamora MD [address] [place] [address],[address] [address] Social History Tobacco Use Types Packs/Day Years [...] ? LINDA ALE ? Accession #: ? [id number] ? : ? 1985 (Age: 22) ??F ? Collect Date: ? 12/05/2007 ? Location: ? [facility] ? Receive Date: ? 12/06/2007 ? Provider: GEMMA ZAMORA MD Copy to: ? Final Pathologic Diagnosis: ? Cervix, biopsy: - Mucus and desquamated debris, insufficient for further diagnosis. ??See comment. Comment: ? The prior Pap test ([id number]) has been reviewed and the diagnosis of [...] tissue. ??Submitted intact in one cassette. ??(Kwame Barajas)/[facility] End of Report JANETTE WALLIS 12/05/2007 12/06/2007 14: 27 EDT Gemma Zamora MD PATHOLOGY ORDERABLES JANET[facility] WALLIS [address] [place] [address] documented in this encounter Visit Diagnoses Not on filedocumented in this encounter Care Teams Bush And Vine Fruit Crop Farmer Relationship Specialty Start Date End Date Dimas-Gemma Varela MD [address],[facility] [address] [place] [address] PCP - General 04/24/09 08/06/15 documented as of this encounter
--- OUTSIDE RECORDS SUMMARY | 2024-07-02 17:27 | XMS_ITS | Encounter Summary ---
Author Organization [facility] Address [address] [place] [address] Care Team Providers Care Bath Solution Maker Name Role Phone Gemma Zamora MD Primary Care Provider Encounter Details Date Type Department Care Team (Latest Contact Info) Description 07/31/2015 10:45 EST - 07/31/2015 23:59 EST Hospital Encounter [address] [address] Unknown, Provider, Discharge Disposition: Home or Self Care Social History Tobacco Use Types Packs/Day Years Used Date Smoking Tobacco: Never Assessed Sex and Gender Information Value Date Recorded Sex Assigned at Not on file Gender Identity Female 06/22/2022 19:03 EDT Sexual Orientation Not on file documented as of this encounter Discharge Disposition Disposition Code Departure Means Destination Home or Self Long-Term documented in this encounter Plan of Treatment Not on file documented as of this encounter Visit Diagnoses Not on filedocumented in this encounter Care Teams Bath Solution Maker Relationship Specialty Start Date End Date Gemma Zamora MD [address] [place] [address],[facility] [address] [place] [address] PCP - General 04/24/09 08/06/15 documented as of this encounter
--- OUTSIDE RECORDS SUMMARY | 2024-07-02 17:27 | XMS_ITS | Encounter Summary ---
Author Organization [facility] Address [address] [place] [address] Care Team Providers Care Park Naturalist Name Role Phone Unavailable Primary Care Provider Unavailabl e Encounter Details Date Type Department Care Team (Late st Contact Info) Description 10/06/2007 9:59 EST - 10/06/2007 11:59 [facility] Hospital Encounter [facility] - Other [address] [place] [address] Gemma Zamora MD [address] [place] [address],[address] [address] Discharge Disposition: Home or Self Care Social [...]
== END 2024-07-02 17:29 | disposition left against medical advice (07) ==
PROVIDERS: PCP Student in an Organized Health Care Education/Training Program
DX: Z53.21 Procedure and treatment not carried out due to patient leaving prior to being seen by health care provider (principal)

== ENCOUNTER 2024-07-02 19:27 | Emergency (ER) | payer MEDICAID, SELFPAY ==
[2024-07-02 19:44] VITALS: BP 142/111; PULSE 112; RESP 18; TEMP 36.5; O2SAT 98
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
[2024-07-03] MEDS: diazePAM 5 MG TAB PO (01:00)
[2024-07-03 01:05] LABS: *AMPHETAMINES SCREEN URINE Negative (Negative); *BARBITURATES SCREEN URINE Negative (Negative); *BENZODIAZEPINES SCREEN URINE Negative (Negative); Cannabinoids THC Positive (Negative); Cocaine Screen,Urine Negative (Negative); METHADONE URINE SCREEN Negative (Negative); OPIATES URINE SCREEN Negative (Negative)
[2024-07-03 01:06] LABS: Tricyclic Antidepressants Negative (Negative)
[2024-07-03] MEDS: Nicotine 14 MG/24 HR PATCH TD (01:28)
[2024-07-03] MEDS: METRONIDAZOLE 0.75% VG ×2 (02:10→12:42)
[2024-07-03] MEDS: Acetaminophen 500 MG TAB 1000 MG PO (02:55)
[2024-07-03] MEDS: Ketorolac 30 MG/ML VIAL IM (02:55)
[2024-07-03] MEDS: OLANZapine 10 MG VIAL IM (02:56)
[2024-07-03] MEDS: Nystatin POWDER 60 GM JAR TP (02:56)
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
--- NOTE | 2024-07-03 07:09 | W.EDPROG ---
Date of service: 07/03/24 Time of Service: 07:09 Medical Decision Making Patient was monitored throughout the night. Patient was quite verbally demanding of nursing staff throughout the night. Additionally, I did have multiple discussions without the patient to the night to answer any of her questions. Patient did have a complaint of rash underneath her breast, and she was prescribed nystatin cream. Initially she did want vaginal metronidazole, and then she refused it, and then she wanted it again, and then she refused it again, eventually she again wanted it and self administered. Later in the evening the patient was having difficulty sleeping. She requested a sleeping aid. She was given Valium and Benadryl. This did not give any effect after a few hours. She then later was complaining of vaginal discomfort and requested pain medication. She was given oral acetaminophen, and IM Toradol. She again requested something to help breast, and we offered IM Zyprexa with the Toradol which she accepted. She tolerated this well and slept for the next few hours. Still pending placement and reassessment by psychiatry and second certification. Patient will be signed out to my colleague. Quality:[facility] Health Related Social Needs: No Data to Display Discharge Plan Discharge Details Chief Complaint: PsychEval Clinical Impression: Delusion, Bacterial vaginosis, Paranoid Primary Care Provider: Ajit Lagunas ED Provider: Dante Cabrera Home Meds and New Rx's Prescriptions: No Action ibuprofen-acetaminophen [Advil Dual Action] 125-250 mg Tablet 1 tab PO Q8H PRN Midol 500-25 mg Tablet 1 tab PO Q4H PRN acetaminophen 500 mg Tablet 1,000 mg PO PRN PRN ibuprofen [Advil] 200 mg tablet 400 mg PO ONCE naproxen [Naprosyn] 500 mg tablet 500 mg PO BID PRN albuterol sulfate 90 mcg/actuation HFA aerosol inhaler 2 puff INHALATION PRN PRN Patient Comments: INHALE 2 PUFFS BY MOUTH EVERY 4 HOURS NEEDED
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
--- NOTE | 2024-07-03 07:23 | NUR.NOTE ---
Nursing Note: this RN asked patient what she would like to eat for breakfast. Patient replied I wanna eat a abbi and slammed the door to her room.
--- NOTE | 2024-07-03 07:37 | NUR.NOTE ---
Nursing Note: Pateint asked for medications for her BV and pain. This RN offered morning meds to patient, educated patient on what meds were being offered and what they were for, patient declined meds at this time stated Didn't I have the door closed? Close the door.
--- NOTE | 2024-07-03 12:09 | NUR.NOTE ---
Nursing Note: after pt talked with [facility] she walked to the bathroom c/o pain in lower abd this RN offered medication PT stated don't talk to me after she came out of bathroom pt wanted her meds for BV and APAP for her abd pain. she also stated I want the Tylenol but I can't eat or drink anything this RN updated provider. Waiting on orders
[2024-07-03] MEDS: Ondansetron O.D.T. 4 MG TABEF (12:40)
[2024-07-03] MEDS: Acetaminophen 325 MG TAB 650 MG PO (12:42)
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
== END 2024-07-03 13:53 | disposition home or self-care (01) ==
PROVIDERS: Emergency Medicine; Emergency Provider Emergency Medicine; PCP Student in an Organized Health Care Education/Training Program
DX: F22 Delusional disorders (principal); N76.0 Acute vaginitis; B96.89 Other specified bacterial agents as the cause of diseases classified elsewhere; E28.2 Polycystic ovarian syndrome
CPT/HCPCS: 00123; 80307; 81025; 96127; 96372; 99284; 99283; J1885; J2359

== ENCOUNTER 2024-07-17 16:21 | Outpatient (REF) | payer MEDICAID, SELFPAY ==
[2024-07-17 15:50] LABS: Bilirubin Negative (Negative); Blood Large (Negative); Clarity Clear (Clear); Glucose Negative (Negative); Ketones Negative (Negative); Leukocyte Esterase Negative (Negative); Nitrite Negative (Negative); Specific Gravity 1.015 (1.005-1.025); Urobilinogen 0.2 mg/dL (Up to 0.2)
[2024-07-17 16:15] LABS: RBC >50 HPF (0-2); WBC 0-2 HPF (0-5)
[2024-07-17 16:16] LABS: Bacteria Rare HPF (Negative); C & S Indicated? No; Casts Negative LPF (Negative); Crystals Negative HPF (Negative); Epithelial Cells Rare HPF (Negative); Mucus Negative (Negative)
== END 2024-07-17 16:22 | disposition home or self-care (01) ==
LOC: NCHCN 16:21
PROVIDERS: PCP Student in an Organized Health Care Education/Training Program; Visit Provider Physician Assistant
DX: R10.9 Unspecified abdominal pain (principal); N89.8 Other specified noninflammatory disorders of vagina
CPT/HCPCS: 81003; 81015; 87480; 87510; 87660

== ENCOUNTER 2024-07-27 10:44 | Emergency (ER) | payer MEDICAID, SELFPAY ==
[2024-07-27 10:46] VITALS: BP 113/62; PULSE 74; RESP 18; TEMP 36.8; O2SAT 98
== END 2024-07-27 10:55 | disposition left against medical advice (07) ==
LOC: ER 11:28
PROVIDERS: PCP Student in an Organized Health Care Education/Training Program
DX: Z53.21 Procedure and treatment not carried out due to patient leaving prior to being seen by health care provider (principal)

== ENCOUNTER 2024-12-13 15:12 | Outpatient (REF) | payer MEDICAID, SELFPAY | END 2024-12-13 15:13 | disposition home or self-care (01) | LOC: NCHCN 15:12 | PROVIDERS: PCP Student in an Organized Health Care Education/Training Program; Visit Provider Student in an Organized Health Care Education/Training Program | DX: L73.9 Follicular disorder, unspecified (principal) | CPT/HCPCS: 87070 ==

== ENCOUNTER 2025-01-28 12:58 | Outpatient (REF) | payer MEDICAID, SELFPAY ==
[2025-01-28 16:04] LABS: ESR 16 mm/hr (0-20)
[2025-01-29 14:41] LABS: Ro60 Ab, IgG <7.0 CU (<20.0); SS-A/Ro, IgG <2.3 CU (<20.0); SS-B (La) Ab, IgG <3.3 CU (<20.0)
== END 2025-01-28 12:59 | disposition home or self-care (01) ==
LOC: NCHCN 12:58
PROVIDERS: PCP Student in an Organized Health Care Education/Training Program; Visit Provider Student in an Organized Health Care Education/Training Program
DX: H04.123 Dry eye syndrome of bilateral lacrimal glands (principal)
CPT/HCPCS: 85652; 86235

== ENCOUNTER 2025-04-01 13:33 | Outpatient (REF) | payer MEDICAID, SELFPAY ==
--- NOTE | 2025-04-01 12:15 | PAPFT_PTH ---
PATIENT: Elvia Alfonso LOC: [facility]#:[id number] AGE/SX: 39/F ROOM: RE04/01/[address]: Ajit Lagunas : 1985 BED: DIS: 04/01/2025 SPEC #: [id number] RECD: 04/01/25 16:01 STATUS: CYDNEY SÁNCHEZ #: [id number] GERARDO: 04/01/25 12:[address]: Ajit Lagunas DEPT: [facility] Cytology RECD BY: Varsha Mead Tissues: 1 - CX/ENDOCX FOR PAP SMEARS Procedures: PAP THIN PREP/UVM Screening HPV DNA PROBE Comments: [id number] (HPV 16 & 18/45)
== END 2025-04-01 13:34 | disposition home or self-care (01) ==
LOC: NCHCN 13:33
PROVIDERS: PCP Student in an Organized Health Care Education/Training Program; Visit Provider Student in an Organized Health Care Education/Training Program
DX: Z01.419 Encounter for gynecological examination (general) (routine) without abnormal findings (principal); Z11.51 Encounter for screening for human papillomavirus (HPV); R87.619 Unspecified abnormal cytological findings in specimens from cervix uteri
CPT/HCPCS: 88142; 87624